=== PATIENT | female | born 1960 | race Caucasian/White ===

== ENCOUNTER 2017-07-02 15:15 | Inpatient (IN) | payer MEDICARE, OTHER ==
[2017-07-02] MEDS: ONDANSETRON 4 MG INJ IV (16:19)
[2017-07-02] MEDS: HYDROmorphONE 1 MG/ML SYG IV ×3 (16:19→20:00)
[2017-07-02 16:36] LABS: ADD UMIC NO; UR ASCORBIC ACID NEGATIVE (NEGATIVE); UR BILIRUBIN (Dip) NEGATIVE (NEGATIVE); UR BLOOD (Dip) NEGATIVE (NEGATIVE); UR CLARITY CLEAR (CLEAR); UR COLOR YELLOW (YELLOW); UR GLUCOSE (Dip) NEGATIVE (NEGATIVE); UR KETONES (Dip) NEGATIVE (NEGATIVE); UR LEUKOCYTE ESTERASE (Dip) NEGATIVE Leu/ul (NEGATIVE); UR NITRITE (Dip) NEGATIVE (NEGATIVE); UR SPECIFIC GRAVITY (Dip) 1.018 (1.003-1.030); UR TOTAL PROTEIN (Dip) NEGATIVE (NEGATIVE); UR UROBILINOGEN (Dip) 1+ mg/dL (NEGATIVE)
[2017-07-02 16:40] LABS: ADD MAN DIFF? NO
[2017-07-02 16:42] LABS: BASOPHILS % 0.8 % (0.0-2.0); EOSINOPHILS % 0.8 % (0.0-7.0); HEMATOCRIT 28.7 % (37.0-47.0); HEMOGLOBIN 9.2 g/dl (12.0-16.0); LYMPHOCYTES # 0.7 10^3/ul (0.8-2.9); MEAN CORPUSCULAR HEMOGLOBIN 25.8 pg (29.0-33.0); MEAN CORPUSCULAR HGB CONC 32.1 g/dl (32.0-37.0); MEAN CORPUSCULAR VOLUME 80.4 fl (82.0-101.0); MEAN PLATELET VOLUME 9.9 fl (7.4-10.4); MONOCYTE # 0.5 10^3/ul (0.3-0.9); MONOCYTES % 10.1 % (0.0-11.0); NEUTROPHIL # 3.8 10^3/ul (1.6-7.5); NEUTROPHILS % 74.3 % (39.0-77.0); PLATELET COUNT 272 10^3/UL (140-415); RED BLOOD COUNT 3.57 10^6/ul (4.20-5.40); RED CELL DISTRIBUTION WIDTH 14.5 % (11.5-14.5)
[2017-07-02 16:42] LABS: WHITE BLOOD COUNT 5.1 10^3/ul (4.8-10.8)
[2017-07-02 17:26] LABS: ALANINE AMINOTRANSFERASE 40 IU/L (13-69); ALBUMIN 3.6 g/dl (3.3-4.9); ALBUMIN/GLOBULIN RATIO 1.09; ALKALINE PHOSPHATASE 95 IU/L (42-121); ANION GAP 17 (8-16); ASPARTATE AMINO TRANSFERASE 73 IU/L (15-46); BILIRUBIN,INDIRECT 0.2 mg/dl (0-1.1); BILIRUBIN,TOTAL 0.2 mg/dl (0.2-1.3); BLOOD UREA NITROGEN 10 mg/dl (7-20); CALCIUM 9.2 mg/dl (8.4-10.2); CARBON DIOXIDE 26 mmol/L (21-31); CHLORIDE 98 mmol/L (97-110); CREATININE 0.75 mg/dl (0.44-1.00); GLUCOSE 92 mg/dl (70-220); LIPASE 131 U/L (23-300); POTASSIUM 3.6 mmol/L (3.5-5.1); SODIUM 137 mmol/L (135-144); TOTAL PROTEIN 6.9 g/dl (6.1-8.1)
[2017-07-02] MEDS ORDERED: ONDANSETRON 4 MG INJ IV (19:00)
[2017-07-02] MEDS ORDERED: ACETAMINOPHEN 325 MG TAB PO ×2 (19:00→20:30)
[2017-07-02] MEDS: ACETAMINOPHEN 325 MG TAB PO (20:00)
[2017-07-02] MEDS ORDERED: HYDROCODONE/APAP (5/325) TAB PO (20:30)
[2017-07-02] MEDS ORDERED: NACL 0.9% 3 ML SYG IV (20:30)
[2017-07-02] MEDS: ENOXAPARIN 30 MG/0.3 ML SYG SC (20:36)
[2017-07-03] MEDS: ALTEPLASE (CATHFLO) 2 MG INJ CATHETER ×2 (02:06→04:00)
[2017-07-03 06:34] LABS: ADD MAN DIFF? NO
[2017-07-03 06:43] LABS: WHITE BLOOD COUNT 3.6 10^3/ul (4.8-10.8)
[2017-07-03 06:43] LABS: ABNORMAL IP MESSAGE 1; BASOPHIL # 0.1 10^3/ul (0.0-0.1); BASOPHILS % 1.4 % (0.0-2.0); EOSINOPHILS # 0.1 10^3/ul (0.0-0.5); EOSINOPHILS % 1.6 % (0.0-7.0); HEMATOCRIT 26.7 % (37.0-47.0); HEMOGLOBIN 8.6 g/dl (12.0-16.0); LYMPHOCYTES # 0.5 10^3/ul (0.8-2.9); LYMPHOCYTES % 12.9 % (15.0-51.0); MEAN CORPUSCULAR HEMOGLOBIN 26.1 pg (29.0-33.0); MEAN CORPUSCULAR HGB CONC 32.2 g/dl (32.0-37.0); MEAN CORPUSCULAR VOLUME 81.2 fl (82.0-101.0); MEAN PLATELET VOLUME 10.1 fl (7.4-10.4); MONOCYTE # 0.4 10^3/ul (0.3-0.9); MONOCYTES % 11.8 % (0.0-11.0); NEUTROPHIL # 2.6 10^3/ul (1.6-7.5); NEUTROPHILS % 71.8 % (39.0-77.0); PLATELET COUNT 241 10^3/UL (140-415); RED BLOOD COUNT 3.29 10^6/ul (4.20-5.40); RED CELL DISTRIBUTION WIDTH 14.8 % (11.5-14.5)
[2017-07-03 06:50] LABS: POSITIVE DIFF @See below
[2017-07-03] MEDS: HYDROmorphONE 1 MG/ML SYG IV ×3 (06:59→22:05)
[2017-07-03] MEDS: SOD CHLORIDE 0.9% 1,000 ML IV (06:59)
[2017-07-03 07:15] LABS: ALANINE AMINOTRANSFERASE 29 IU/L (13-69); ALBUMIN 3.2 g/dl (3.3-4.9); ALBUMIN/GLOBULIN RATIO 0.96; ALKALINE PHOSPHATASE 78 IU/L (42-121); ANION GAP 10 (8-16); ASPARTATE AMINO TRANSFERASE 58 IU/L (15-46); BILIRUBIN,INDIRECT 0.1 mg/dl (0-1.1); BILIRUBIN,TOTAL 0.1 mg/dl (0.2-1.3); BLOOD UREA NITROGEN 10 mg/dl (7-20); CALCIUM 9.2 mg/dl (8.4-10.2); CARBON DIOXIDE 31 mmol/L (21-31); CHLORIDE 101 mmol/L (97-110); CHOL/HDL RATIO 9.1 RATIO; CHOLESTEROL 202 mg/dl (100-200); CREATININE 0.78 mg/dl (0.44-1.00); GLUCOSE 98 mg/dl (70-220); HDL CHOLESTEROL 22 mg/dl (37-92); LDL CHOLESTEROL,CALCULATED 132 mg/dl; MAGNESIUM 1.9 mg/dl (1.7-2.5); POTASSIUM 3.6 mmol/L (3.5-5.1); SODIUM 138 mmol/L (135-144); TOTAL PROTEIN 6.5 g/dl (6.1-8.1); TRIGLYCERIDES 238 mg/dl (0-149)
[2017-07-03] MEDS: ENOXAPARIN 30 MG/0.3 ML SYG SC (09:19)
[2017-07-03] MEDS: ONDANSETRON 4 MG INJ IV (17:24)
[2017-07-04] MEDS: HYDROmorphONE 1 MG/ML SYG IV ×11 (02:05→19:07)
[2017-07-04] MEDS: ONDANSETRON 4 MG INJ IV ×2 (08:05→19:08)
[2017-07-04] MEDS: ENOXAPARIN 30 MG/0.3 ML SYG SC (10:10)
[2017-07-04] MEDS: FENTAnyl PATCH 50 MCG/HR TRANSDERM (12:00)
[2017-07-04] MEDS ORDERED: HYDROmorphONE 1 MG/ML SYG IV (12:32)
[2017-07-04] MEDS ORDERED: NALOXONE (0.4 MG/ML) INJ IV (16:30)
[2017-07-04] MEDS: SOD CHLORIDE 0.9% 1,000 ML IV ×2 (16:58→22:30)
[2017-07-04] MEDS: DULOXETINE 30 MG CAP DR PO (21:26)
[2017-07-05] MEDS: SOD CHLORIDE 0.9% 1,000 ML IV ×3 (06:30→21:20)
[2017-07-05] MEDS: ENOXAPARIN 30 MG/0.3 ML SYG SC (09:00)
[2017-07-05] MEDS: HYDROmorphONE 2 MG/ML SYG IV (11:01)
[2017-07-05] MEDS: ONDANSETRON 4 MG INJ IV (11:01)
[2017-07-05 11:22] LABS: INR 1.18; PROTIME 15.2 Sec (11.9-14.9); PT RATIO 1.2
[2017-07-05 11:23] LABS: PARTIAL THROMBOPLASTIN TIME 37.5 Sec (25.0-35.0)
[2017-07-05] MEDS: DULOXETINE 30 MG CAP DR PO (21:00)
[2017-07-06] MEDS: HYDROmorphONE 2 MG/ML SYG IV ×3 (00:05→18:44)
[2017-07-06] MEDS: ONDANSETRON 4 MG INJ IV ×3 (00:05→18:52)
[2017-07-06] MEDS: SOD CHLORIDE 0.9% 1,000 ML IV ×2 (05:52→14:30)
[2017-07-06] MEDS: ENOXAPARIN 30 MG/0.3 ML SYG SC (09:00)
[2017-07-06] MEDS: DULOXETINE 30 MG CAP DR PO (21:44)
[2017-07-07] MEDS: SOD CHLORIDE 0.9% 1,000 ML IV ×4 (00:25→21:46)
[2017-07-07] MEDS: ONDANSETRON 4 MG INJ IV ×2 (01:03→13:46)
[2017-07-07] MEDS: ENOXAPARIN 30 MG/0.3 ML SYG SC (09:00)
[2017-07-07] MEDS: IOHEXOL 300MG/ML 30 ML BTL (11:45)
[2017-07-07] MEDS: ALTEPLASE (CATHFLO) 2 MG INJ CATHETER ×2 (12:25→16:18)
[2017-07-07] MEDS: HYDROmorphONE 2 MG/ML SYG IV (13:37)
[2017-07-07] MEDS ORDERED: ONDANSETRON 4 MG INJ IV (20:30)
[2017-07-07] MEDS: DULOXETINE 30 MG CAP DR PO ×2 (20:59→21:00)
[2017-07-08 06:35] LABS: ADD MAN DIFF? NO
[2017-07-08] MEDS: SOD CHLORIDE 0.9% 1,000 ML IV ×2 (06:36→14:30)
[2017-07-08 06:42] LABS: WHITE BLOOD COUNT 3.9 10^3/ul (4.8-10.8)
[2017-07-08 06:43] LABS: ABNORMAL IP MESSAGE 1; BASOPHILS % 0.8 % (0.0-2.0); EOSINOPHILS # 0.1 10^3/ul (0.0-0.5); EOSINOPHILS % 1.8 % (0.0-7.0); HEMATOCRIT 26.3 % (37.0-47.0); HEMOGLOBIN 8.3 g/dl (12.0-16.0); LYMPHOCYTES # 0.5 10^3/ul (0.8-2.9); LYMPHOCYTES % 11.9 % (15.0-51.0); MEAN CORPUSCULAR HEMOGLOBIN 25.8 pg (29.0-33.0); MEAN CORPUSCULAR HGB CONC 31.6 g/dl (32.0-37.0); MEAN CORPUSCULAR VOLUME 81.7 fl (82.0-101.0); MEAN PLATELET VOLUME 10.1 fl (7.4-10.4); MONOCYTE # 0.4 10^3/ul (0.3-0.9); MONOCYTES % 9.8 % (0.0-11.0); NEUTROPHIL # 2.9 10^3/ul (1.6-7.5); NEUTROPHILS % 74.4 % (39.0-77.0); PLATELET COUNT 261 10^3/UL (140-415); RED BLOOD COUNT 3.22 10^6/ul (4.20-5.40); RED CELL DISTRIBUTION WIDTH 15.1 % (11.5-14.5)
[2017-07-08 06:47] LABS: POSITIVE DIFF @See below
[2017-07-08 07:08] LABS: ANION GAP 13 (8-16); BLOOD UREA NITROGEN 4 mg/dl (7-20); CALCIUM 8.4 mg/dl (8.4-10.2); CARBON DIOXIDE 28 mmol/L (21-31); CHLORIDE 101 mmol/L (97-110); CREATININE 0.54 mg/dl (0.44-1.00); GLUCOSE 93 mg/dl (70-220); SODIUM 139 mmol/L (135-144)
[2017-07-08] MEDS: ENOXAPARIN 30 MG/0.3 ML SYG SC (11:32)
[2017-07-08] MEDS: HYDROmorphONE 1 MG/ML SYG IV ×2 (11:33→21:20)
[2017-07-08] MEDS: ONDANSETRON 4 MG INJ IV (11:35)
[2017-07-08] MEDS: POTASSIUM CHLORIDE (SR) 20 MEQ TAB PO (16:44)
[2017-07-08] MEDS: DULOXETINE 30 MG CAP DR PO (21:15)
[2017-07-09] MEDS: SOD CHLORIDE 0.9% 1,000 ML IV ×4 (01:58→22:30)
[2017-07-09] MEDS: ONDANSETRON 4 MG INJ IV ×3 (02:05→22:20)
[2017-07-09 06:15] LABS: ADD MAN DIFF? NO
[2017-07-09 06:21] LABS: ABNORMAL IP MESSAGE 1; BASOPHILS % 0.9 % (0.0-2.0); EOSINOPHILS # 0.1 10^3/ul (0.0-0.5); EOSINOPHILS % 2.6 % (0.0-7.0); HEMATOCRIT 26.7 % (37.0-47.0); HEMOGLOBIN 8.4 g/dl (12.0-16.0); LYMPHOCYTES # 0.4 10^3/ul (0.8-2.9); LYMPHOCYTES % 11.8 % (15.0-51.0); MEAN CORPUSCULAR HEMOGLOBIN 25.9 pg (29.0-33.0); MEAN CORPUSCULAR HGB CONC 31.5 g/dl (32.0-37.0); MEAN CORPUSCULAR VOLUME 82.4 fl (82.0-101.0); MEAN PLATELET VOLUME 9.7 fl (7.4-10.4); MONOCYTE # 0.5 10^3/ul (0.3-0.9); NEUTROPHIL # 2.4 10^3/ul (1.6-7.5); NEUTROPHILS % 69.7 % (39.0-77.0); PLATELET COUNT 262 10^3/UL (140-415); RED BLOOD COUNT 3.24 10^6/ul (4.20-5.40); RED CELL DISTRIBUTION WIDTH 14.9 % (11.5-14.5)
[2017-07-09 06:21] LABS: WHITE BLOOD COUNT 3.5 10^3/ul (4.8-10.8)
[2017-07-09 06:34] LABS: POSITIVE DIFF @See below
[2017-07-09 06:46] LABS: ANION GAP 9 (8-16); BLOOD UREA NITROGEN 2 mg/dl (7-20); CALCIUM 8.5 mg/dl (8.4-10.2); CARBON DIOXIDE 29 mmol/L (21-31); CHLORIDE 106 mmol/L (97-110); CREATININE 0.52 mg/dl (0.44-1.00); GLUCOSE 100 mg/dl (70-220); POTASSIUM 3.1 mmol/L (3.5-5.1); SODIUM 141 mmol/L (135-144)
[2017-07-09] MEDS ORDERED: NALOXONE (0.4 MG/ML) INJ IV (09:00)
[2017-07-09] MEDS ORDERED: HYDROmorphONE 0.2 MG/ML PCA IV (09:00)
[2017-07-09] MEDS: METHYLPREDNISOLONE 125 MG INJ IV ×2 (09:29→21:43)
[2017-07-09] MEDS: ENOXAPARIN 30 MG/0.3 ML SYG SC (09:31)
[2017-07-09] MEDS ORDERED: BARIUM SULFATE 135 ML (E-Z HD) PO (09:38)
[2017-07-09] MEDS ORDERED: DEXTROSE 5%-0.45% NACL 1,000 ML IV (10:00)
[2017-07-09] MEDS: POTASSIUM CHLORIDE 50 ML IVPB ×2 (12:54→15:48)
[2017-07-09] MEDS: HYDROmorphONE 1 MG/ML SYG IV ×2 (13:40→22:21)
[2017-07-09] MEDS: DULOXETINE 30 MG CAP DR PO (21:43)
[2017-07-10] MEDS: SOD CHLORIDE 0.9% 1,000 ML IV ×3 (04:48→23:08)
[2017-07-10] MEDS: HYDROmorphONE 1 MG/ML SYG IV ×3 (05:35→15:45)
[2017-07-10] MEDS: ONDANSETRON 4 MG INJ IV ×3 (05:35→15:45)
[2017-07-10 06:06] LABS: ADD MAN DIFF? NO
[2017-07-10 06:15] LABS: ABNORMAL IP MESSAGE 1; BASOPHILS % 0.2 % (0.0-2.0); EOSINOPHILS % 0.2 % (0.0-7.0); HEMATOCRIT 29.2 % (37.0-47.0); HEMOGLOBIN 9.1 g/dl (12.0-16.0); LYMPHOCYTES # 0.5 10^3/ul (0.8-2.9); LYMPHOCYTES % 9.8 % (15.0-51.0); MEAN CORPUSCULAR HEMOGLOBIN 25.5 pg (29.0-33.0); MEAN CORPUSCULAR HGB CONC 31.2 g/dl (32.0-37.0); MEAN CORPUSCULAR VOLUME 81.8 fl (82.0-101.0); MEAN PLATELET VOLUME 10.2 fl (7.4-10.4); MONOCYTE # 0.3 10^3/ul (0.3-0.9); MONOCYTES % 5.9 % (0.0-11.0); NEUTROPHIL # 3.7 10^3/ul (1.6-7.5); NEUTROPHILS % 80.4 % (39.0-77.0); PLATELET COUNT 309 10^3/UL (140-415); RED BLOOD COUNT 3.57 10^6/ul (4.20-5.40); RED CELL DISTRIBUTION WIDTH 15.4 % (11.5-14.5)
[2017-07-10 06:15] LABS: WHITE BLOOD COUNT 4.6 10^3/ul (4.8-10.8)
[2017-07-10 06:30] LABS: POSITIVE DIFF @See below
[2017-07-10 06:44] LABS: ANION GAP 15 (8-16); BLOOD UREA NITROGEN 9 mg/dl (7-20); CALCIUM 8.8 mg/dl (8.4-10.2); CARBON DIOXIDE 29 mmol/L (21-31); CHLORIDE 103 mmol/L (97-110); CREATININE 0.59 mg/dl (0.44-1.00); GLUCOSE 135 mg/dl (70-220); POTASSIUM 3.9 mmol/L (3.5-5.1); SODIUM 143 mmol/L (135-144)
[2017-07-10] MEDS: ENOXAPARIN 30 MG/0.3 ML SYG SC (08:32)
[2017-07-10] MEDS: METHYLPREDNISOLONE 125 MG INJ IV ×2 (08:35→21:00)
[2017-07-10] MEDS: HEPARIN 5,000 UNIT/0.5 ML VIAL SC ×2 (14:55→23:13)
[2017-07-10] MEDS: DULOXETINE 30 MG CAP DR PO (21:00)
[2017-07-11] MEDS: ONDANSETRON 4 MG INJ IV ×4 (03:10→15:21)
[2017-07-11] MEDS: HYDROmorphONE 1 MG/ML SYG IV ×4 (03:10→16:10)
[2017-07-11 06:23] LABS: ADD MAN DIFF? NO
[2017-07-11] MEDS: SOD CHLORIDE 0.9% 1,000 ML IV ×3 (06:30→15:53)
[2017-07-11 06:33] LABS: ABNORMAL IP MESSAGE 1; BASOPHILS % 0.6 % (0.0-2.0); EOSINOPHILS % 0.8 % (0.0-7.0); HEMATOCRIT 28.3 % (37.0-47.0); HEMOGLOBIN 8.7 g/dl (12.0-16.0); LYMPHOCYTES # 0.6 10^3/ul (0.8-2.9); LYMPHOCYTES % 11.1 % (15.0-51.0); MEAN CORPUSCULAR HEMOGLOBIN 25.4 pg (29.0-33.0); MEAN CORPUSCULAR HGB CONC 30.7 g/dl (32.0-37.0); MEAN CORPUSCULAR VOLUME 82.5 fl (82.0-101.0); MEAN PLATELET VOLUME 10.2 fl (7.4-10.4); MONOCYTE # 0.4 10^3/ul (0.3-0.9); NEUTROPHILS % 77.2 % (39.0-77.0); PLATELET COUNT 323 10^3/UL (140-415); RED BLOOD COUNT 3.43 10^6/ul (4.20-5.40); RED CELL DISTRIBUTION WIDTH 15.7 % (11.5-14.5)
[2017-07-11 06:33] LABS: WHITE BLOOD COUNT 5.1 10^3/ul (4.8-10.8)
[2017-07-11 06:51] LABS: ANION GAP 10 (8-16); BLOOD UREA NITROGEN 11 mg/dl (7-20); CALCIUM 8.9 mg/dl (8.4-10.2); CARBON DIOXIDE 30 mmol/L (21-31); CHLORIDE 104 mmol/L (97-110); CREATININE 0.66 mg/dl (0.44-1.00); GLUCOSE 96 mg/dl (70-220); POTASSIUM 3.2 mmol/L (3.5-5.1); SODIUM 141 mmol/L (135-144)
[2017-07-11 06:56] LABS: POSITIVE DIFF @See below
[2017-07-11] MEDS: METHYLPREDNISOLONE 125 MG INJ IV ×2 (10:02→20:11)
[2017-07-11] MEDS: HEPARIN 5,000 UNIT/0.5 ML VIAL SC ×2 (10:03→20:16)
[2017-07-11] MEDS: POTASSIUM CHLORIDE 50 ML IVPB ×3 (15:22→20:10)
[2017-07-11] MEDS: DEXTROSE 5%-0.45% NACL 1,000 ML IV ×2 (16:06→23:58)
[2017-07-11] MEDS: HYDROmorphONE 0.2 MG/ML PCA IV (17:00)
[2017-07-11] MEDS: DULOXETINE 30 MG CAP DR PO (20:11)
[2017-07-12] MEDS: DEXTROSE 5%-0.45% NACL 1,000 ML IV ×3 (01:14→17:48)
[2017-07-12 05:17] LABS: ADD MAN DIFF? NO
[2017-07-12 05:26] LABS: WHITE BLOOD COUNT 5.1 10^3/ul (4.8-10.8)
[2017-07-12 05:26] LABS: ABNORMAL IP MESSAGE 1; BASOPHILS % 0.2 % (0.0-2.0); EOSINOPHILS % 0.2 % (0.0-7.0); HEMATOCRIT 30.9 % (37.0-47.0); HEMOGLOBIN 9.5 g/dl (12.0-16.0); LYMPHOCYTES # 0.4 10^3/ul (0.8-2.9); LYMPHOCYTES % 8.3 % (15.0-51.0); MEAN CORPUSCULAR HEMOGLOBIN 25.5 pg (29.0-33.0); MEAN CORPUSCULAR HGB CONC 30.7 g/dl (32.0-37.0); MEAN CORPUSCULAR VOLUME 82.8 fl (82.0-101.0); MEAN PLATELET VOLUME 10.1 fl (7.4-10.4); MONOCYTE # 0.2 10^3/ul (0.3-0.9); MONOCYTES % 4.3 % (0.0-11.0); NEUTROPHIL # 4.3 10^3/ul (1.6-7.5); NEUTROPHILS % 84.6 % (39.0-77.0); PLATELET COUNT 294 10^3/UL (140-415); RED BLOOD COUNT 3.73 10^6/ul (4.20-5.40); RED CELL DISTRIBUTION WIDTH 15.3 % (11.5-14.5)
[2017-07-12 05:40] LABS: POSITIVE DIFF @See below
[2017-07-12] MEDS: ONDANSETRON 4 MG INJ IV ×3 (05:55→17:51)
[2017-07-12 05:59] LABS: ANION GAP 11 (8-16); BLOOD UREA NITROGEN 6 mg/dl (7-20); CALCIUM 8.7 mg/dl (8.4-10.2); CARBON DIOXIDE 32 mmol/L (21-31); CHLORIDE 100 mmol/L (97-110); CREATININE 0.61 mg/dl (0.44-1.00); GLUCOSE 178 mg/dl (70-220); POTASSIUM 3.9 mmol/L (3.5-5.1); SODIUM 139 mmol/L (135-144)
[2017-07-12] MEDS: METHYLPREDNISOLONE 125 MG INJ IV ×2 (08:50→21:03)
[2017-07-12] MEDS: HEPARIN 5,000 UNIT/0.5 ML VIAL SC ×2 (08:51→21:04)
[2017-07-12] MEDS: HYDROmorphONE 0.2 MG/ML PCA IV (10:01)
[2017-07-12] MEDS: HYDROmorphONE 1 MG/ML SYG IV ×3 (10:55→17:59)
[2017-07-12] MEDS: TRIMETHOBENZAMIDE 100 MG/ML VIAL IM (14:40)
[2017-07-12] MEDS: MINERAL OIL 30ML CUP PO (17:45)
[2017-07-12] MEDS: DULOXETINE 30 MG CAP DR PO (21:00)
[2017-07-13] MEDS: MINERAL OIL 30ML CUP PO ×5 (00:16→23:32)
[2017-07-13] MEDS: ONDANSETRON 4 MG INJ IV ×5 (00:19→23:05)
[2017-07-13] MEDS: HYDROmorphONE 0.2 MG/ML PCA IV ×2 (02:59→21:37)
[2017-07-13] MEDS: DEXTROSE 5%-0.45% NACL 1,000 ML IV ×2 (05:33→15:53)
[2017-07-13 06:48] LABS: INR 1.35; PROTIME 16.9 Sec (11.9-14.9); PT RATIO 1.3
[2017-07-13 06:49] LABS: PARTIAL THROMBOPLASTIN TIME 26.9 Sec (25.0-35.0)
[2017-07-13] MEDS: HEPARIN 5,000 UNIT/0.5 ML VIAL SC ×2 (08:32→21:47)
[2017-07-13] MEDS: METHYLPREDNISOLONE 125 MG INJ IV ×2 (08:32→21:46)
[2017-07-13] MEDS ORDERED: LIDOCAINE 1% (MDV) 20 ML INJ (13:45)
[2017-07-13] MEDS ORDERED: PROPOFOL 40 ML (14:01)
[2017-07-13] MEDS ORDERED: LIDOCAINE 2% (SDV) 5 ML INJ (14:01)
[2017-07-13] MEDS ORDERED: FENTAnyl 50 MCG/ML VIAL (14:02)
[2017-07-13] MEDS ORDERED: MIDAZOLAM 1 MG/ML 2 ML INJ (14:02)
[2017-07-13] MEDS: HYDROmorphONE 1 MG/ML SYG IV (16:57)
[2017-07-13] MEDS: DULOXETINE 30 MG CAP DR PO (21:00)
[2017-07-13] MEDS: MINERAL OIL 133 ML ENEMA PR (21:41)
[2017-07-13] MEDS: LORAZEPAM 0.5 MG TAB SL (21:45)
[2017-07-14] MEDS: DEXTROSE 5%-0.45% NACL 1,000 ML IV ×2 (05:09→10:28)
[2017-07-14] MEDS: LACTULOSE 30ML CUP PO (05:33)
[2017-07-14 06:18] LABS: ANION GAP 7 (8-16); BLOOD UREA NITROGEN 7 mg/dl (7-20); CALCIUM 8.8 mg/dl (8.4-10.2); CARBON DIOXIDE 37 mmol/L (21-31); CHLORIDE 96 mmol/L (97-110); CREATININE 0.63 mg/dl (0.44-1.00); GLUCOSE 147 mg/dl (70-220); MAGNESIUM 1.6 mg/dl (1.7-2.5); PHOSPHORUS 4.1 mg/dl (2.5-4.9); POTASSIUM 3.4 mmol/L (3.5-5.1); SODIUM 137 mmol/L (135-144)
[2017-07-14] MEDS: MINERAL OIL 30ML CUP PO ×3 (06:32→17:24)
[2017-07-14] MEDS: METHYLPREDNISOLONE 125 MG INJ IV ×2 (10:22→20:14)
[2017-07-14] MEDS: HEPARIN 5,000 UNIT/0.5 ML VIAL SC ×2 (10:23→20:15)
[2017-07-14] MEDS: ONDANSETRON 4 MG INJ IV ×2 (10:29→20:07)
[2017-07-14] MEDS: HYDROmorphONE 0.2 MG/ML PCA IV (12:25)
[2017-07-14] MEDS: DULOXETINE 30 MG CAP DR PO (20:22)
[2017-07-14] MEDS ORDERED: hydrALAzine 20 MG INJ (21:53)
[2017-07-14] MEDS: hydrALAzine 20 MG INJ IV (21:57)
[2017-07-14] MEDS ORDERED: POTASSIUM CHLORIDE 40 MEQ in DEXTROSE 5% 250 ML IV (22:00)
[2017-07-14] MEDS ORDERED: POTASSIUM CHLORIDE 50 ML IVPB (22:00)
[2017-07-15] MEDS: MAGNESIUM SULFATE 2 GM/50 ML 50 ML IVPB (00:05)
[2017-07-15] MEDS: MINERAL OIL 30ML CUP PO ×5 (00:21→23:56)
[2017-07-15] MEDS: ONDANSETRON 4 MG INJ IV ×2 (00:27→09:11)
[2017-07-15] MEDS: HYDROmorphONE 0.2 MG/ML PCA IV (02:35)
[2017-07-15] MEDS: POTASSIUM CHLORIDE 40 MEQ in SOD CHLORIDE 0.9% 250 ML IV (02:44)
[2017-07-15] MEDS: DEXTROSE 5%-0.45% NACL 1,000 ML IV ×2 (06:07→22:50)
[2017-07-15] MEDS: METHYLPREDNISOLONE 125 MG INJ IV ×2 (09:09→20:41)
[2017-07-15] MEDS: HEPARIN 5,000 UNIT/0.5 ML VIAL SC ×2 (09:09→20:41)
[2017-07-15] MEDS: ONDANSETRON INJ 8 MG in DEXTROSE 5% 50 ML IV (12:05)
[2017-07-15] MEDS ORDERED: POTASSIUM CHLORIDE (SR) 20 MEQ TAB PO (13:35)
[2017-07-15] MEDS ORDERED: MAGNESIUM SULFATE 2 GM/50 ML 50 ML IVPB (15:00)
[2017-07-15] MEDS: DULOXETINE 30 MG CAP DR PO (20:40)
[2017-07-16] MEDS: HYDROmorphONE 1 MG/ML SYG IV (00:07)
[2017-07-16] MEDS: ONDANSETRON 4 MG INJ IV (00:07)
[2017-07-16] MEDS: hydrALAzine 20 MG INJ IV (04:00)
[2017-07-16] MEDS: MINERAL OIL 30ML CUP PO ×3 (05:28→17:24)
[2017-07-16] MEDS: METOCLOPRAMIDE 10 MG INJ IV (05:33)
[2017-07-16 06:39] LABS: ANION GAP 8 (8-16); BLOOD UREA NITROGEN 11 mg/dl (7-20); CARBON DIOXIDE 37 mmol/L (21-31); CHLORIDE 95 mmol/L (97-110); CREATININE 0.61 mg/dl (0.44-1.00); GLUCOSE 146 mg/dl (70-220); MAGNESIUM 1.9 mg/dl (1.7-2.5); PHOSPHORUS 3.3 mg/dl (2.5-4.9); POTASSIUM 3.6 mmol/L (3.5-5.1); SODIUM 136 mmol/L (135-144)
[2017-07-16] MEDS: METHYLPREDNISOLONE 125 MG INJ IV ×2 (08:18→20:45)
[2017-07-16] MEDS: HEPARIN 5,000 UNIT/0.5 ML VIAL SC ×2 (08:19→20:46)
[2017-07-16] MEDS: DEXTROSE 5%-0.45% NACL 1,000 ML IV (17:25)
[2017-07-16] MEDS: HYDROmorphONE 0.2 MG/ML PCA IV (20:36)
[2017-07-16] MEDS: DULOXETINE 30 MG CAP DR PO (20:45)
[2017-07-17] MEDS: MINERAL OIL 30ML CUP PO ×4 (01:02→17:27)
[2017-07-17] MEDS: hydrALAzine 20 MG INJ IV (02:40)
[2017-07-17] MEDS: DEXTROSE 5%-0.45% NACL 1,000 ML IV ×2 (04:30→17:30)
[2017-07-17] MEDS: ONDANSETRON 4 MG INJ IV ×3 (05:58→15:34)
[2017-07-17] MEDS: HEPARIN 5,000 UNIT/0.5 ML VIAL SC ×2 (08:27→20:52)
[2017-07-17] MEDS: METHYLPREDNISOLONE 125 MG INJ IV ×2 (08:28→20:52)
[2017-07-17] MEDS: HYDROmorphONE 1 MG/ML SYG IV ×3 (08:50→15:34)
[2017-07-17] MEDS: FAMOTIDINE 20 MG TAB PO (14:30)
[2017-07-17] MEDS: DULOXETINE 30 MG CAP DR PO (20:53)
[2017-07-17] MEDS: ONDANSETRON INJ 8 MG in DEXTROSE 5% 50 ML IV (21:04)
[2017-07-18] MEDS: MINERAL OIL 30ML CUP PO
[2017-07-18] MEDS: HYDROmorphONE 0.2 MG/ML PCA IV ×2 (02:47→11:20)
[2017-07-18] MEDS: ONDANSETRON INJ 8 MG in DEXTROSE 5% 50 ML IV ×4 (03:30→21:55)
[2017-07-18 05:40] LABS: ADD MAN DIFF? NO
[2017-07-18 05:42] LABS: ABNORMAL IP MESSAGE 1; HEMOGLOBIN 9.6 g/dl (12.0-16.0); LYMPHOCYTES # 0.3 10^3/ul (0.8-2.9); LYMPHOCYTES % 4.5 % (15.0-51.0); MEAN CORPUSCULAR HEMOGLOBIN 25.1 pg (29.0-33.0); MEAN CORPUSCULAR VOLUME 80.9 fl (82.0-101.0); MEAN PLATELET VOLUME 10.7 fl (7.4-10.4); MONOCYTE # 0.3 10^3/ul (0.3-0.9); MONOCYTES % 4.5 % (0.0-11.0); NEUTROPHIL # 5.3 10^3/ul (1.6-7.5); NEUTROPHILS % 89.3 % (39.0-77.0); PLATELET COUNT 251 10^3/UL (140-415); RED BLOOD COUNT 3.83 10^6/ul (4.20-5.40); RED CELL DISTRIBUTION WIDTH 16.4 % (11.5-14.5)
[2017-07-18 05:46] LABS: POSITIVE DIFF @See below
[2017-07-18 05:56] LABS: ALANINE AMINOTRANSFERASE 31 IU/L (13-69); ALBUMIN 2.9 g/dl (3.3-4.9); ALBUMIN/GLOBULIN RATIO 0.96; ALKALINE PHOSPHATASE 115 IU/L (42-121); ANION GAP 9 (8-16); ASPARTATE AMINO TRANSFERASE 56 IU/L (15-46); BILIRUBIN,INDIRECT 0.2 mg/dl (0-1.1); BILIRUBIN,TOTAL 0.2 mg/dl (0.2-1.3); BLOOD UREA NITROGEN 11 mg/dl (7-20); CALCIUM 8.8 mg/dl (8.4-10.2); CARBON DIOXIDE 34 mmol/L (21-31); CHLORIDE 95 mmol/L (97-110); CREATININE 0.64 mg/dl (0.44-1.00); GLUCOSE 141 mg/dl (70-220); MAGNESIUM 1.7 mg/dl (1.7-2.5); PHOSPHORUS 4.8 mg/dl (2.5-4.9); SODIUM 134 mmol/L (135-144); TOTAL PROTEIN 5.9 g/dl (6.1-8.1)
[2017-07-18] MEDS: LACTOBACILLUS RHAMNOSUS CAP PO ×3 (08:31→21:45)
[2017-07-18] MEDS: HEPARIN 5,000 UNIT/0.5 ML VIAL SC ×2 (08:31→21:46)
[2017-07-18] MEDS: METHYLPREDNISOLONE 125 MG INJ IV ×2 (08:31→21:45)
[2017-07-18] MEDS: FAMOTIDINE 20 MG TAB PO (08:34)
[2017-07-18] MEDS: METOCLOPRAMIDE 10 MG INJ IV (11:20)
[2017-07-18] MEDS: DEXTROSE 5%-0.45% NACL 1,000 ML IV (16:45)
[2017-07-18] MEDS: DULOXETINE 30 MG CAP DR PO (21:45)
[2017-07-19] MEDS: HYDROmorphONE 0.2 MG/ML PCA IV ×2 (06:34→17:20)
[2017-07-19] MEDS: ONDANSETRON INJ 8 MG in DEXTROSE 5% 50 ML IV ×4 (09:00→21:59)
[2017-07-19] MEDS: FAMOTIDINE 20 MG TAB PO ×2 (09:00→09:01)
[2017-07-19] MEDS: LACTOBACILLUS RHAMNOSUS CAP PO ×3 (09:00→21:00)
[2017-07-19] MEDS: METHYLPREDNISOLONE 125 MG INJ IV ×2 (09:01→21:59)
[2017-07-19] MEDS: HEPARIN 5,000 UNIT/0.5 ML VIAL SC ×2 (09:02→22:03)
[2017-07-19] MEDS: DEXTROSE 5%-0.45% NACL 1,000 ML IV (13:00)
[2017-07-19] MEDS: DULOXETINE 30 MG CAP DR PO (21:00)
[2017-07-20] MEDS: HYDROmorphONE 0.2 MG/ML PCA IV ×2 (05:57→16:32)
[2017-07-20] MEDS: ONDANSETRON INJ 8 MG in DEXTROSE 5% 50 ML IV ×3 (08:38→19:53)
[2017-07-20] MEDS: FAMOTIDINE 20 MG TAB PO (08:40)
[2017-07-20] MEDS: HEPARIN 5,000 UNIT/0.5 ML VIAL SC ×2 (08:40→20:54)
[2017-07-20] MEDS: METHYLPREDNISOLONE 125 MG INJ IV ×2 (08:40→20:53)
[2017-07-20] MEDS: LACTOBACILLUS RHAMNOSUS CAP PO ×3 (08:41→21:00)
[2017-07-20] MEDS: DEXTROSE 5%-0.45% NACL 1,000 ML IV (10:34)
[2017-07-20] MEDS: METOCLOPRAMIDE 10 MG INJ IV (16:27)
[2017-07-20] MEDS: DULOXETINE 30 MG CAP DR PO ×2 (20:53→21:00)
[2017-07-20] MEDS: hydrALAzine 20 MG INJ IV (21:28)
[2017-07-21] MEDS: ONDANSETRON INJ 8 MG in DEXTROSE 5% 50 ML IV ×2 (00:38→06:34)
[2017-07-21] MEDS: DEXTROSE 5%-0.45% NACL 1,000 ML IV ×2 (04:31→06:33)
[2017-07-21] MEDS: HYDROmorphONE 0.2 MG/ML PCA IV (05:54)
[2017-07-21] MEDS: FAMOTIDINE 20 MG TAB PO (09:01)
[2017-07-21] MEDS: LACTOBACILLUS RHAMNOSUS CAP PO ×2 (09:01→20:21)
[2017-07-21] MEDS: METHYLPREDNISOLONE 125 MG INJ IV ×2 (09:01→20:22)
[2017-07-21] MEDS: HEPARIN 5,000 UNIT/0.5 ML VIAL SC ×2 (09:02→20:23)
[2017-07-21] MEDS: DULOXETINE 30 MG CAP DR PO (20:21)
[2017-07-22] MEDS: DEXTROSE 5%-0.45% NACL 1,000 ML IV (04:22)
[2017-07-22] MEDS: METOCLOPRAMIDE 10 MG INJ IV ×4 (05:39→17:27)
[2017-07-22 07:16] LABS: ADD MAN DIFF? NO
[2017-07-22 07:20] LABS: WHITE BLOOD COUNT 4.8 10^3/ul (4.8-10.8)
[2017-07-22 07:20] LABS: ABNORMAL IP MESSAGE 1; HEMATOCRIT 28.7 % (37.0-47.0); HEMOGLOBIN 9.2 g/dl (12.0-16.0); LYMPHOCYTES # 0.4 10^3/ul (0.8-2.9); LYMPHOCYTES % 7.7 % (15.0-51.0); MEAN CORPUSCULAR HEMOGLOBIN 25.4 pg (29.0-33.0); MEAN CORPUSCULAR HGB CONC 32.1 g/dl (32.0-37.0); MEAN CORPUSCULAR VOLUME 79.3 fl (82.0-101.0); MEAN PLATELET VOLUME 10.7 fl (7.4-10.4); MONOCYTE # 0.3 10^3/ul (0.3-0.9); MONOCYTES % 6.7 % (0.0-11.0); NEUTROPHILS % 83.3 % (39.0-77.0); PLATELET COUNT 240 10^3/UL (140-415); RED BLOOD COUNT 3.62 10^6/ul (4.20-5.40); RED CELL DISTRIBUTION WIDTH 16.4 % (11.5-14.5)
[2017-07-22 07:33] LABS: POSITIVE DIFF @See below
[2017-07-22 07:55] LABS: ALANINE AMINOTRANSFERASE 27 IU/L (13-69); ALBUMIN 2.9 g/dl (3.3-4.9); ALKALINE PHOSPHATASE 86 IU/L (42-121); ANION GAP 9 (8-16); ASPARTATE AMINO TRANSFERASE 59 IU/L (15-46); BILIRUBIN,INDIRECT 0.2 mg/dl (0-1.1); BILIRUBIN,TOTAL 0.2 mg/dl (0.2-1.3); BLOOD UREA NITROGEN 8 mg/dl (7-20); CALCIUM 9.1 mg/dl (8.4-10.2); CARBON DIOXIDE 35 mmol/L (21-31); CHLORIDE 94 mmol/L (97-110); GLUCOSE 106 mg/dl (70-220); POTASSIUM 3.5 mmol/L (3.5-5.1); SODIUM 134 mmol/L (135-144); TOTAL PROTEIN 5.3 g/dl (6.1-8.1)
[2017-07-22 08:17] LABS: CARCINOEMBRYONIC ANTIGEN 0.7 ng/ml (0.0-5.0)
[2017-07-22] MEDS: FAMOTIDINE 20 MG TAB PO (09:34)
[2017-07-22] MEDS: METHYLPREDNISOLONE 125 MG INJ IV ×2 (09:34→20:50)
[2017-07-22] MEDS: LACTOBACILLUS RHAMNOSUS CAP PO ×2 (09:34→20:50)
[2017-07-22] MEDS: HEPARIN 5,000 UNIT/0.5 ML VIAL SC ×2 (09:35→20:51)
[2017-07-22] MEDS: HYDROmorphONE 0.2 MG/ML PCA IV (12:09)
[2017-07-22] MEDS: SOD CHLORIDE 0.9% 100 ML (13:05)
[2017-07-22] MEDS: IOHEXOL 300MG/ML 150 ML BTL (13:06)
[2017-07-22 15:39] LABS: INR 1.02; PROTIME 13.5 Sec (11.9-14.9); PT RATIO 1.1
[2017-07-22 15:40] LABS: PARTIAL THROMBOPLASTIN TIME 28.1 Sec (25.0-35.0)
[2017-07-22] MEDS: MINERAL OIL 30ML CUP PO (17:27)
[2017-07-22] MEDS: DULOXETINE 30 MG CAP DR PO (20:50)
[2017-07-22] MEDS: ONDANSETRON 4 MG INJ IV (20:50)
[2017-07-23] MEDS: METOCLOPRAMIDE 10 MG INJ IV ×3 (00:30→20:14)
[2017-07-23] MEDS: MINERAL OIL 30ML CUP PO ×5 (00:30→23:28)
[2017-07-23] MEDS: HYDROmorphONE 0.2 MG/ML PCA IV ×2 (04:04→20:16)
[2017-07-23] MEDS: DEXTROSE 5%-0.45% NACL 1,000 ML IV (06:01)
[2017-07-23] MEDS: FAMOTIDINE 20 MG TAB PO (09:00)
[2017-07-23] MEDS: LACTOBACILLUS RHAMNOSUS CAP PO ×2 (09:00→21:00)
[2017-07-23] MEDS: METHYLPREDNISOLONE 125 MG INJ IV (09:00)
[2017-07-23] MEDS: HEPARIN 5,000 UNIT/0.5 ML VIAL SC ×2 (09:02→20:26)
[2017-07-23 10:37] LABS: CA27.29 357 U/mL (<38)
[2017-07-23] MEDS ORDERED: MINERAL OIL 133 ML ENEMA PR (18:00)
[2017-07-23] MEDS: DULOXETINE 30 MG CAP DR PO (21:00)
[2017-07-23] MEDS: MINERAL OIL 133 ML ENEMA PR (21:00)
[2017-07-23] MEDS: DOCUSATE SODIUM 100 MG CAP PO (21:00)
[2017-07-23] MEDS: ONDANSETRON INJ 8 MG in DEXTROSE 5% 50 ML IV (21:56)
[2017-07-24] MEDS: morphine 2 MG INJ IV ×2 (01:17→20:23)
[2017-07-24] MEDS: METOCLOPRAMIDE 10 MG INJ IV ×3 (02:35→22:56)
[2017-07-24] MEDS: ONDANSETRON INJ 8 MG in DEXTROSE 5% 50 ML IV ×3 (05:25→20:53)
[2017-07-24] MEDS: DEXTROSE 5%-0.45% NACL 1,000 ML IV ×2 (05:28→12:31)
[2017-07-24] MEDS: MINERAL OIL 30ML CUP PO ×4 (05:29→23:21)
[2017-07-24 05:52] LABS: ADD MAN DIFF? NO
[2017-07-24 05:57] LABS: WHITE BLOOD COUNT 5.8 10^3/ul (4.8-10.8)
[2017-07-24 05:57] LABS: ABNORMAL IP MESSAGE 1; BASOPHILS % 0.2 % (0.0-2.0); EOSINOPHILS % 0.2 % (0.0-7.0); HEMATOCRIT 31.4 % (37.0-47.0); HEMOGLOBIN 10.1 g/dl (12.0-16.0); LYMPHOCYTES # 0.4 10^3/ul (0.8-2.9); LYMPHOCYTES % 6.5 % (15.0-51.0); MEAN CORPUSCULAR HEMOGLOBIN 25.8 pg (29.0-33.0); MEAN CORPUSCULAR HGB CONC 32.2 g/dl (32.0-37.0); MEAN CORPUSCULAR VOLUME 80.3 fl (82.0-101.0); MEAN PLATELET VOLUME 10.1 fl (7.4-10.4); MONOCYTE # 0.3 10^3/ul (0.3-0.9); MONOCYTES % 4.6 % (0.0-11.0); NEUTROPHIL # 5.1 10^3/ul (1.6-7.5); NEUTROPHILS % 86.6 % (39.0-77.0); PLATELET COUNT 200 10^3/UL (140-415); RED BLOOD COUNT 3.91 10^6/ul (4.20-5.40); RED CELL DISTRIBUTION WIDTH 16.8 % (11.5-14.5)
[2017-07-24 06:19] LABS: ANION GAP 8 (8-16); BLOOD UREA NITROGEN 11 mg/dl (7-20); CALCIUM 9.6 mg/dl (8.4-10.2); CARBON DIOXIDE 32 mmol/L (21-31); CHLORIDE 94 mmol/L (97-110); CREATININE 0.78 mg/dl (0.44-1.00); GLUCOSE 108 mg/dl (70-220); MAGNESIUM 1.6 mg/dl (1.7-2.5); PHOSPHORUS 4.1 mg/dl (2.5-4.9); POTASSIUM 3.2 mmol/L (3.5-5.1); SODIUM 131 mmol/L (135-144)
[2017-07-24 06:52] LABS: POSITIVE DIFF @See below
[2017-07-24] MEDS: TRIMETHOBENZAMIDE 100 MG/ML VIAL IM (08:10)
[2017-07-24] MEDS: DOCUSATE SODIUM 100 MG CAP PO ×2 (09:00→21:00)
[2017-07-24] MEDS: FAMOTIDINE 20 MG TAB PO (09:00)
[2017-07-24] MEDS: LACTOBACILLUS RHAMNOSUS CAP PO ×2 (09:00→22:45)
[2017-07-24] MEDS: predniSONE 20 MG TAB PO (09:00)
[2017-07-24] MEDS: HEPARIN 5,000 UNIT/0.5 ML VIAL SC ×2 (09:42→20:32)
[2017-07-24] MEDS: HYDROmorphONE 0.2 MG/ML PCA IV (09:43)
[2017-07-24] MEDS: ANASTROZOLE 1 MG TAB PO (12:45)
[2017-07-24] MEDS: MINERAL OIL 133 ML ENEMA PR ×2 (13:55→20:08)
[2017-07-24] MEDS: DULOXETINE 30 MG CAP DR PO (22:45)
[2017-07-24] MEDS: POTASSIUM CHLORIDE (SR) 20 MEQ TAB PO (22:49)
[2017-07-25] MEDS: HYDROmorphONE 0.2 MG/ML PCA IV ×2 (00:08→09:06)
[2017-07-25] MEDS: MAGNESIUM SULFATE 2 GM/50 ML 50 ML IVPB (00:25)
[2017-07-25] MEDS: TRIMETHOBENZAMIDE 100 MG/ML VIAL IM (03:15)
[2017-07-25] MEDS: MINERAL OIL 30ML CUP PO ×3 (06:00→17:19)
[2017-07-25 07:12] LABS: ADD MAN DIFF? NO
[2017-07-25 07:16] LABS: WHITE BLOOD COUNT 7.5 10^3/ul (4.8-10.8)
[2017-07-25 07:16] LABS: ABNORMAL IP MESSAGE 1; BASOPHILS % 0.1 % (0.0-2.0); EOSINOPHILS % 0.3 % (0.0-7.0); HEMATOCRIT 30.9 % (37.0-47.0); HEMOGLOBIN 9.7 g/dl (12.0-16.0); LYMPHOCYTES # 0.4 10^3/ul (0.8-2.9); LYMPHOCYTES % 5.3 % (15.0-51.0); MEAN CORPUSCULAR HEMOGLOBIN 25.7 pg (29.0-33.0); MEAN CORPUSCULAR HGB CONC 31.4 g/dl (32.0-37.0); MEAN CORPUSCULAR VOLUME 81.7 fl (82.0-101.0); MONOCYTE # 0.2 10^3/ul (0.3-0.9); MONOCYTES % 2.7 % (0.0-11.0); NEUTROPHIL # 6.8 10^3/ul (1.6-7.5); PLATELET COUNT 173 10^3/UL (140-415); RED BLOOD COUNT 3.78 10^6/ul (4.20-5.40); RED CELL DISTRIBUTION WIDTH 17.1 % (11.5-14.5)
[2017-07-25 07:22] LABS: POSITIVE DIFF @See below
[2017-07-25 08:17] LABS: ANION GAP 13 (8-16); BLOOD UREA NITROGEN 16 mg/dl (7-20); CALCIUM 9.4 mg/dl (8.4-10.2); CARBON DIOXIDE 28 mmol/L (21-31); CHLORIDE 93 mmol/L (97-110); CREATININE 1.05 mg/dl (0.44-1.00); GLUCOSE 126 mg/dl (70-220); POTASSIUM 4.2 mmol/L (3.5-5.1); SODIUM 130 mmol/L (135-144)
[2017-07-25] MEDS: DEXTROSE 5%-0.45% NACL 1,000 ML IV ×2 (08:31→09:18)
[2017-07-25] MEDS: DOCUSATE SODIUM 100 MG CAP PO ×2 (09:04→21:30)
[2017-07-25] MEDS: LACTOBACILLUS RHAMNOSUS CAP PO ×2 (09:04→21:30)
[2017-07-25] MEDS: predniSONE 20 MG TAB PO (09:04)
[2017-07-25] MEDS: HEPARIN 5,000 UNIT/0.5 ML VIAL SC ×2 (09:05→21:32)
[2017-07-25] MEDS: ANASTROZOLE 1 MG TAB PO (09:05)
[2017-07-25] MEDS: FAMOTIDINE 20 MG TAB PO (09:13)
[2017-07-25] MEDS: LACTULOSE 30ML CUP PO ×3 (10:56→17:19)
[2017-07-25] MEDS: MINERAL OIL 133 ML ENEMA PR (15:58)
[2017-07-25] MEDS: DULOXETINE 30 MG CAP DR PO (21:00)
[2017-07-25] MEDS: METOCLOPRAMIDE 10 MG INJ IV (21:37)
[2017-07-26] MEDS: MINERAL OIL 30ML CUP PO ×3 (00:21→12:00)
[2017-07-26] MEDS: LACTULOSE 30ML CUP PO ×3 (00:21→12:00)
[2017-07-26] MEDS: MINERAL OIL 133 ML ENEMA PR (00:29)
[2017-07-26] MEDS: DEXTROSE 5%-0.45% NACL 1,000 ML IV (04:31)
[2017-07-26 06:03] LABS: ADD MAN DIFF? NO
[2017-07-26] MEDS: METOCLOPRAMIDE 10 MG INJ IV (06:06)
[2017-07-26 06:09] LABS: BASOPHILS % 0.2 % (0.0-2.0); HEMATOCRIT 33.5 % (37.0-47.0); HEMOGLOBIN 10.8 g/dl (12.0-16.0); LYMPHOCYTES # 1.4 10^3/ul (0.8-2.9); LYMPHOCYTES % 12.4 % (15.0-51.0); MEAN CORPUSCULAR HEMOGLOBIN 25.9 pg (29.0-33.0); MEAN CORPUSCULAR HGB CONC 32.2 g/dl (32.0-37.0); MEAN CORPUSCULAR VOLUME 80.3 fl (82.0-101.0); MEAN PLATELET VOLUME 11.6 fl (7.4-10.4); MONOCYTE # 0.6 10^3/ul (0.3-0.9); MONOCYTES % 5.4 % (0.0-11.0); NEUTROPHIL # 8.9 10^3/ul (1.6-7.5); NEUTROPHILS % 79.9 % (39.0-77.0); NUCLEATED RED BLOOD CELLS% 0.3 /100WBC (0.0-0.0); PLATELET COUNT 130 10^3/UL (140-415); RED BLOOD COUNT 4.17 10^6/ul (4.20-5.40); RED CELL DISTRIBUTION WIDTH 18.1 % (11.5-14.5)
[2017-07-26 06:09] LABS: WHITE BLOOD COUNT 11.2 10^3/ul (4.8-10.8)
[2017-07-26 06:35] LABS: ANION GAP 16 (8-16); BLOOD UREA NITROGEN 23 mg/dl (7-20); CALCIUM 9.2 mg/dl (8.4-10.2); CARBON DIOXIDE 27 mmol/L (21-31); CHLORIDE 92 mmol/L (97-110); CREATININE 1.09 mg/dl (0.44-1.00); GLUCOSE 151 mg/dl (70-220); SODIUM 128 mmol/L (135-144)
[2017-07-26 06:56] LABS: POTASSIUM 6.8 mmol/L (3.5-5.1)
[2017-07-26] MEDS: NA POLYST SULFON 15 GM/60 ML BTL PO (08:14)
[2017-07-26] MEDS: DEXTROSE 50% 50 ML SYRINGE IV (08:15)
[2017-07-26] MEDS: CALCIUM GLUCONATE 10% 1 GM in DEXTROSE 5% 100 ML IVPB (08:16)
[2017-07-26] MEDS: INSULIN ASPART [NOVOLOG] 3 ML PEN SC (08:17)
[2017-07-26] MEDS: LACTOBACILLUS RHAMNOSUS CAP PO ×2 (10:00→21:06)
[2017-07-26] MEDS: ANASTROZOLE 1 MG TAB PO (10:01)
[2017-07-26] MEDS: HEPARIN 5,000 UNIT/0.5 ML VIAL SC ×2 (10:01→21:07)
[2017-07-26] MEDS: predniSONE 20 MG TAB PO (10:01)
[2017-07-26] MEDS: FAMOTIDINE 20 MG TAB PO (10:02)
[2017-07-26] MEDS: ALBUTEROL HFA 8 GM INHALER INH (10:03)
[2017-07-26] MEDS: DOCUSATE SODIUM 100 MG CAP PO (10:03)
[2017-07-26 15:37] LABS: ANION GAP 12 (8-16); BLOOD UREA NITROGEN 21 mg/dl (7-20); CALCIUM 8.8 mg/dl (8.4-10.2); CARBON DIOXIDE 28 mmol/L (21-31); CHLORIDE 92 mmol/L (97-110); CREATININE 1.01 mg/dl (0.44-1.00); GLUCOSE 179 mg/dl (70-220); POTASSIUM 4.1 mmol/L (3.5-5.1); SODIUM 128 mmol/L (135-144)
[2017-07-26] MEDS ORDERED: LACTULOSE 30ML CUP PO (16:30)
[2017-07-26] MEDS ORDERED: MINERAL OIL 30ML CUP PO (16:30)
[2017-07-26] MEDS: DULOXETINE 30 MG CAP DR PO (21:06)
[2017-07-27] MEDS: DEXTROSE 5%-0.45% NACL 1,000 ML IV (00:21)
[2017-07-27] MEDS: HYDROmorphONE 0.2 MG/ML PCA IV (00:22)
[2017-07-27 01:21] LABS: MAGNESIUM 2.1 mg/dl (1.7-2.5)
[2017-07-27 01:54] LABS: POTASSIUM 3.9 mmol/L (3.5-5.1)
[2017-07-27] MEDS: METOCLOPRAMIDE 10 MG INJ IV ×2 (04:48→22:01)
[2017-07-27 06:39] LABS: ADD MAN DIFF? NO
[2017-07-27 06:42] LABS: WHITE BLOOD COUNT 5.4 10^3/ul (4.8-10.8)
[2017-07-27 06:42] LABS: ABNORMAL IP MESSAGE 1; HEMATOCRIT 24.5 % (37.0-47.0); HEMOGLOBIN 8.1 g/dl (12.0-16.0); LYMPHOCYTES # 0.4 10^3/ul (0.8-2.9); LYMPHOCYTES % 7.6 % (15.0-51.0); MEAN CORPUSCULAR HGB CONC 33.1 g/dl (32.0-37.0); MEAN CORPUSCULAR VOLUME 78.5 fl (82.0-101.0); MEAN PLATELET VOLUME 11.4 fl (7.4-10.4); MONOCYTE # 0.2 10^3/ul (0.3-0.9); MONOCYTES % 4.1 % (0.0-11.0); NEUTROPHIL # 4.7 10^3/ul (1.6-7.5); PLATELET COUNT 146 10^3/UL (140-415); RED BLOOD COUNT 3.12 10^6/ul (4.20-5.40); RED CELL DISTRIBUTION WIDTH 18.1 % (11.5-14.5)
[2017-07-27 06:57] LABS: POSITIVE DIFF @See below
[2017-07-27 07:02] LABS: ANION GAP 9 (8-16); BLOOD UREA NITROGEN 19 mg/dl (7-20); CARBON DIOXIDE 30 mmol/L (21-31); CHLORIDE 93 mmol/L (97-110); CREATININE 0.85 mg/dl (0.44-1.00); GLUCOSE 130 mg/dl (70-220); POTASSIUM 3.9 mmol/L (3.5-5.1); SODIUM 128 mmol/L (135-144)
[2017-07-27 07:09] LABS: INR 1.32; PT RATIO 1.3
[2017-07-27 07:10] LABS: PARTIAL THROMBOPLASTIN TIME 38.1 Sec (25.0-35.0)
[2017-07-27 07:44] LABS: PROTIME 16.6 Sec (11.9-14.9)
[2017-07-27] MEDS: HEPARIN 5,000 UNIT/0.5 ML VIAL SC ×2 (09:00→21:13)
[2017-07-27] MEDS: FAMOTIDINE 20 MG TAB PO (09:00)
[2017-07-27] MEDS: ANASTROZOLE 1 MG TAB PO (09:00)
[2017-07-27] MEDS ORDERED: predniSONE 20 MG TAB PO (09:00)
[2017-07-27] MEDS: morphine (ER) 15 MG TAB PO ×2 (12:30→22:02)
[2017-07-27 13:20] LABS: IMMEDIATE SPIN CROSSMATCH 1 1
[2017-07-27] MEDS: LIDOCAINE 1% (MDV) 20 ML INJ (15:50)
[2017-07-27] MEDS: FENTAnyl 50 MCG/ML VIAL (16:34)
[2017-07-27] MEDS: MIDAZOLAM 1 MG/ML 2 ML INJ (16:34)
[2017-07-27] MEDS: DULOXETINE 30 MG CAP DR PO (21:00)
[2017-07-27] MEDS: morphine LIQ (10 MG/5 ML) CUP PO (23:06)
[2017-07-28] MEDS: ONDANSETRON INJ 8 MG in DEXTROSE 5% 50 ML IV (00:32)
[2017-07-28] MEDS: morphine LIQ (10 MG/5 ML) CUP PO (04:14)
[2017-07-28] MEDS: METOCLOPRAMIDE 10 MG INJ IV ×2 (04:15→20:44)
[2017-07-28 05:50] LABS: ADD MAN DIFF? NO
[2017-07-28 06:02] LABS: ABNORMAL IP MESSAGE 1; EOSINOPHILS % 0.3 % (0.0-7.0); HEMATOCRIT 21.9 % (37.0-47.0); HEMOGLOBIN 7.2 g/dl (12.0-16.0); LYMPHOCYTES # 0.3 10^3/ul (0.8-2.9); LYMPHOCYTES % 6.8 % (15.0-51.0); MEAN CORPUSCULAR HEMOGLOBIN 25.9 pg (29.0-33.0); MEAN CORPUSCULAR HGB CONC 32.9 g/dl (32.0-37.0); MEAN CORPUSCULAR VOLUME 78.8 fl (82.0-101.0); MEAN PLATELET VOLUME 10.4 fl (7.4-10.4); MONOCYTE # 0.2 10^3/ul (0.3-0.9); MONOCYTES % 3.9 % (0.0-11.0); NEUTROPHIL # 3.4 10^3/ul (1.6-7.5); NEUTROPHILS % 88.5 % (39.0-77.0); PLATELET COUNT 136 10^3/UL (140-415); RED BLOOD COUNT 2.78 10^6/ul (4.20-5.40)
[2017-07-28 06:02] LABS: WHITE BLOOD COUNT 3.8 10^3/ul (4.8-10.8)
[2017-07-28 06:15] LABS: ANION GAP 7 (8-16); BLOOD UREA NITROGEN 14 mg/dl (7-20); CALCIUM 8.9 mg/dl (8.4-10.2); CARBON DIOXIDE 32 mmol/L (21-31); CHLORIDE 93 mmol/L (97-110); CREATININE 0.75 mg/dl (0.44-1.00); GLUCOSE 99 mg/dl (70-220); POTASSIUM 3.6 mmol/L (3.5-5.1); SODIUM 128 mmol/L (135-144)
[2017-07-28 06:19] LABS: POSITIVE DIFF @See below
[2017-07-28] MEDS: HEPARIN 5,000 UNIT/0.5 ML VIAL SC ×2 (08:45→21:10)
[2017-07-28] MEDS: ANASTROZOLE 1 MG TAB PO (08:45)
[2017-07-28] MEDS: morphine (ER) 15 MG TAB PO (08:46)
[2017-07-28] MEDS: METHADONE (1 MG/1 ML PO SYG) PO ×2 (16:15→21:37)
[2017-07-28] MEDS: DULOXETINE 30 MG CAP DR PO (21:09)
[2017-07-28 22:21] LABS: IMMEDIATE SPIN CROSSMATCH 1
[2017-07-29] MEDS: METHADONE (1 MG/1 ML PO SYG) PO ×3 (05:31→21:41)
[2017-07-29 05:56] LABS: ADD MAN DIFF? NO
[2017-07-29 05:58] LABS: WHITE BLOOD COUNT 4.2 10^3/ul (4.8-10.8)
[2017-07-29 05:58] LABS: ABNORMAL IP MESSAGE 1; BASOPHILS % 0.2 % (0.0-2.0); EOSINOPHILS % 0.2 % (0.0-7.0); HEMATOCRIT 27.1 % (37.0-47.0); HEMOGLOBIN 9.1 g/dl (12.0-16.0); LYMPHOCYTES # 0.3 10^3/ul (0.8-2.9); LYMPHOCYTES % 7.8 % (15.0-51.0); MEAN CORPUSCULAR HEMOGLOBIN 27.1 pg (29.0-33.0); MEAN CORPUSCULAR HGB CONC 33.6 g/dl (32.0-37.0); MEAN CORPUSCULAR VOLUME 80.7 fl (82.0-101.0); MEAN PLATELET VOLUME 9.9 fl (7.4-10.4); MONOCYTE # 0.2 10^3/ul (0.3-0.9); NEUTROPHIL # 3.7 10^3/ul (1.6-7.5); NEUTROPHILS % 86.8 % (39.0-77.0); PLATELET COUNT 139 10^3/UL (140-415); RED BLOOD COUNT 3.36 10^6/ul (4.20-5.40); RED CELL DISTRIBUTION WIDTH 17.9 % (11.5-14.5)
[2017-07-29 06:13] LABS: POSITIVE DIFF @See below
[2017-07-29 06:51] LABS: ANION GAP 7 (8-16); BLOOD UREA NITROGEN 11 mg/dl (7-20); CALCIUM 8.8 mg/dl (8.4-10.2); CARBON DIOXIDE 33 mmol/L (21-31); CHLORIDE 92 mmol/L (97-110); CREATININE 0.75 mg/dl (0.44-1.00); GLUCOSE 86 mg/dl (70-220); POTASSIUM 3.8 mmol/L (3.5-5.1); SODIUM 128 mmol/L (135-144)
[2017-07-29 06:56] LABS: IRON 43 ug/dl (35-150)
[2017-07-29 07:05] LABS: % IRON SATURATION 21 % SAT (22-52); TOTAL IRON BINDING CAPACITY 201 ug/dl (241-421)
[2017-07-29] MEDS: HEPARIN 5,000 UNIT/0.5 ML VIAL SC ×2 (09:50→20:52)
[2017-07-29] MEDS: ANASTROZOLE 1 MG TAB PO (09:50)
[2017-07-29 11:13] LABS: URIC ACID 6.6 mg/dl (3.1-7.9)
[2017-07-29 11:21] LABS: LACTATE DEHYDROGENASE 5538 IU/L (313-618)
[2017-07-29 13:37] LABS: IMMUNOGLOBULIN A 86 mg/dl (70-400); IMMUNOGLOBULIN G 410 mg/dl (700-1600); IMMUNOGLOBULIN M 35 mg/dl (40-230)
[2017-07-29] MEDS: DULOXETINE 30 MG CAP DR PO (20:51)
[2017-07-30 03:07] LABS: PROTEIN, TOTAL 4.7 g/dL (6.1-8.1)
[2017-07-30] MEDS: METHADONE (1 MG/1 ML PO SYG) PO ×3 (05:58→22:33)
[2017-07-30 06:23] LABS: ADD MAN DIFF? NO
[2017-07-30 06:31] LABS: WHITE BLOOD COUNT 3.8 10^3/ul (4.8-10.8)
[2017-07-30 06:31] LABS: ABNORMAL IP MESSAGE 1; BASOPHILS % 0.3 % (0.0-2.0); EOSINOPHILS % 0.8 % (0.0-7.0); HEMATOCRIT 27.9 % (37.0-47.0); HEMOGLOBIN 9.4 g/dl (12.0-16.0); LYMPHOCYTES # 0.4 10^3/ul (0.8-2.9); LYMPHOCYTES % 9.2 % (15.0-51.0); MEAN CORPUSCULAR HEMOGLOBIN 27.2 pg (29.0-33.0); MEAN CORPUSCULAR HGB CONC 33.7 g/dl (32.0-37.0); MEAN CORPUSCULAR VOLUME 80.9 fl (82.0-101.0); MEAN PLATELET VOLUME 10.5 fl (7.4-10.4); MONOCYTE # 0.2 10^3/ul (0.3-0.9); MONOCYTES % 5.3 % (0.0-11.0); NEUTROPHIL # 3.1 10^3/ul (1.6-7.5); NEUTROPHILS % 82.8 % (39.0-77.0); PLATELET COUNT 151 10^3/UL (140-415); RED BLOOD COUNT 3.45 10^6/ul (4.20-5.40); RED CELL DISTRIBUTION WIDTH 17.8 % (11.5-14.5)
[2017-07-30 06:34] LABS: POSITIVE DIFF @See below
[2017-07-30] MEDS: HEPARIN 5,000 UNIT/0.5 ML VIAL SC ×2 (09:17→20:49)
[2017-07-30] MEDS: ANASTROZOLE 1 MG TAB PO (09:17)
[2017-07-30 15:15] LABS: BETA-2 MICROGLOBULIN 4.69 mg/L (< OR = 2.51)
[2017-07-30] MEDS: BALSAM PERU/CASTOR OIL 60 GM TUBE TOP ×2 (15:21→20:47)
[2017-07-30 16:48] LABS: ALBUMIN 2.2 g/dL (3.8-4.8); ALPHA-1-GLOBULINS 0.5 g/dL (0.2-0.3); ALPHA-2-GLOBULINS 0.9 g/dL (0.5-0.9); BETA 2 GLOBULINS 0.4 g/dL (0.2-0.5); BETA GLOBULINS 0.3 g/dL (0.4-0.6); GAMMA GLOBULINS 0.4 g/dL (0.8-1.7)
[2017-07-30] MEDS: DULOXETINE 30 MG CAP DR PO (20:47)
[2017-07-31 05:48] LABS: ADD MAN DIFF? NO
[2017-07-31 06:16] LABS: ANION GAP 9 (8-16); BLOOD UREA NITROGEN 8 mg/dl (7-20); CALCIUM 8.7 mg/dl (8.4-10.2); CARBON DIOXIDE 33 mmol/L (21-31); CHLORIDE 92 mmol/L (97-110); CREATININE 0.64 mg/dl (0.44-1.00); GLUCOSE 74 mg/dl (70-220); POTASSIUM 3.8 mmol/L (3.5-5.1); SODIUM 130 mmol/L (135-144)
[2017-07-31] MEDS: METHADONE (1 MG/1 ML PO SYG) PO ×3 (06:18→22:00)
[2017-07-31 06:19] LABS: WHITE BLOOD COUNT 3.2 10^3/ul (4.8-10.8)
[2017-07-31 06:19] LABS: ABNORMAL IP MESSAGE 1; BASOPHILS % 0.6 % (0.0-2.0); EOSINOPHILS % 0.6 % (0.0-7.0); HEMATOCRIT 27.9 % (37.0-47.0); HEMOGLOBIN 9.2 g/dl (12.0-16.0); LYMPHOCYTES # 0.3 10^3/ul (0.8-2.9); LYMPHOCYTES % 10.7 % (15.0-51.0); MEAN CORPUSCULAR HEMOGLOBIN 26.8 pg (29.0-33.0); MEAN CORPUSCULAR VOLUME 81.3 fl (82.0-101.0); MEAN PLATELET VOLUME 9.9 fl (7.4-10.4); MONOCYTE # 0.2 10^3/ul (0.3-0.9); MONOCYTES % 6.3 % (0.0-11.0); NEUTROPHIL # 2.5 10^3/ul (1.6-7.5); PLATELET COUNT 140 10^3/UL (140-415); RED BLOOD COUNT 3.43 10^6/ul (4.20-5.40); RED CELL DISTRIBUTION WIDTH 17.8 % (11.5-14.5)
[2017-07-31] MEDS: METOCLOPRAMIDE 10 MG INJ IV ×2 (06:23→22:06)
[2017-07-31 06:25] LABS: POSITIVE DIFF @See below
[2017-07-31] MEDS: HEPARIN 5,000 UNIT/0.5 ML VIAL SC ×2 (08:29→20:31)
[2017-07-31] MEDS: ANASTROZOLE 1 MG TAB PO (08:29)
[2017-07-31] MEDS: BALSAM PERU/CASTOR OIL 60 GM TUBE TOP ×2 (10:15→20:39)
[2017-07-31] MEDS: ALLOPURINOL 300 MG TAB PO (10:15)
[2017-07-31] MEDS: DOCUSATE SODIUM 250 MG CAP PO (20:29)
[2017-07-31] MEDS: DULOXETINE 30 MG CAP DR PO (20:30)
[2017-08-01] MEDS: METHADONE (1 MG/1 ML PO SYG) PO ×3 (06:00→21:36)
[2017-08-01] MEDS: ANASTROZOLE 1 MG TAB PO (08:04)
[2017-08-01] MEDS: HEPARIN 5,000 UNIT/0.5 ML VIAL SC ×2 (08:04→21:32)
[2017-08-01] MEDS: DOCUSATE SODIUM 100 MG CAP PO (08:04)
[2017-08-01] MEDS: ALLOPURINOL 300 MG TAB PO (08:07)
[2017-08-01] MEDS: BALSAM PERU/CASTOR OIL 60 GM TUBE TOP ×2 (08:08→21:36)
[2017-08-01] MEDS: DOCUSATE SODIUM 250 MG CAP PO (21:35)
[2017-08-01] MEDS: DULOXETINE 30 MG CAP DR PO (21:35)
[2017-08-02] MEDS: ONDANSETRON INJ 8 MG in DEXTROSE 5% 50 ML IV ×2 (01:02→12:01)
[2017-08-02] MEDS: METHADONE (1 MG/1 ML PO SYG) PO ×3 (05:28→22:12)
[2017-08-02] MEDS: ALLOPURINOL 300 MG TAB PO (10:02)
[2017-08-02] MEDS: BALSAM PERU/CASTOR OIL 60 GM TUBE TOP ×2 (10:02→21:01)
[2017-08-02] MEDS: HEPARIN 5,000 UNIT/0.5 ML VIAL SC ×2 (10:04→20:53)
[2017-08-02] MEDS: ANASTROZOLE 1 MG TAB PO (10:07)
[2017-08-02] MEDS ORDERED: BISACODYL 10 MG SUPP PR (10:30)
[2017-08-02] MEDS: ENOXAPARIN 30 MG/0.3 ML SYG SC (10:30)
[2017-08-02] MEDS: MAGNESIUM HYDROXIDE 30ML CUP PO ×2 (12:01→20:51)
[2017-08-02] MEDS: FAMOTIDINE 20 MG INJ IV (12:01)
[2017-08-02 12:31] LABS: LIPASE 83 U/L (23-300)
[2017-08-02 19:16] LABS: OCCULT BLOOD STOOL NEGATIVE (NEGATIVE)
[2017-08-02] MEDS: DULOXETINE 30 MG CAP DR PO (20:51)
[2017-08-02] MEDS: DOCUSATE SODIUM 250 MG CAP PO (20:53)
[2017-08-03 05:00] LABS: ADD MAN DIFF? NO
[2017-08-03 05:02] LABS: WHITE BLOOD COUNT 3.1 10^3/ul (4.8-10.8)
[2017-08-03 05:02] LABS: ABNORMAL IP MESSAGE 1; EOSINOPHILS % 1.3 % (0.0-7.0); HEMATOCRIT 28.1 % (37.0-47.0); HEMOGLOBIN 9.2 g/dl (12.0-16.0); LYMPHOCYTES # 0.4 10^3/ul (0.8-2.9); LYMPHOCYTES % 14.4 % (15.0-51.0); MEAN CORPUSCULAR HEMOGLOBIN 26.6 pg (29.0-33.0); MEAN CORPUSCULAR HGB CONC 32.7 g/dl (32.0-37.0); MEAN CORPUSCULAR VOLUME 81.2 fl (82.0-101.0); MEAN PLATELET VOLUME 9.3 fl (7.4-10.4); MONOCYTE # 0.2 10^3/ul (0.3-0.9); MONOCYTES % 6.2 % (0.0-11.0); NEUTROPHIL # 2.3 10^3/ul (1.6-7.5); NEUTROPHILS % 74.1 % (39.0-77.0); PLATELET COUNT 150 10^3/UL (140-415); RED BLOOD COUNT 3.46 10^6/ul (4.20-5.40); RED CELL DISTRIBUTION WIDTH 17.5 % (11.5-14.5)
[2017-08-03 05:04] LABS: POSITIVE DIFF @See below
[2017-08-03] MEDS: METHADONE (1 MG/1 ML PO SYG) PO ×3 (05:23→21:46)
[2017-08-03 05:29] LABS: ALANINE AMINOTRANSFERASE 30 IU/L (13-69); ALBUMIN 2.6 g/dl (3.3-4.9); ALBUMIN/GLOBULIN RATIO 1.13; ALKALINE PHOSPHATASE 90 IU/L (42-121); ANION GAP 10 (8-16); ASPARTATE AMINO TRANSFERASE 54 IU/L (15-46); BILIRUBIN,INDIRECT 0.2 mg/dl (0-1.1); BILIRUBIN,TOTAL 0.2 mg/dl (0.2-1.3); BLOOD UREA NITROGEN 7 mg/dl (7-20); CALCIUM 9.4 mg/dl (8.4-10.2); CARBON DIOXIDE 35 mmol/L (21-31); CHLORIDE 93 mmol/L (97-110); CREATININE 0.68 mg/dl (0.44-1.00); GLUCOSE 79 mg/dl (70-220); MAGNESIUM 1.6 mg/dl (1.7-2.5); PHOSPHORUS 3.3 mg/dl (2.5-4.9); POTASSIUM 3.5 mmol/L (3.5-5.1); SODIUM 134 mmol/L (135-144); TOTAL PROTEIN 4.9 g/dl (6.1-8.1)
[2017-08-03] MEDS: ONDANSETRON INJ 8 MG in DEXTROSE 5% 50 ML IV ×2 (06:25→22:38)
[2017-08-03] MEDS: ALLOPURINOL 300 MG TAB PO (08:46)
[2017-08-03] MEDS: MAGNESIUM HYDROXIDE 30ML CUP PO ×2 (08:46→20:49)
[2017-08-03] MEDS: FAMOTIDINE 20 MG INJ IV (08:47)
[2017-08-03] MEDS: ENOXAPARIN 30 MG/0.3 ML SYG SC (08:48)
[2017-08-03] MEDS: ANASTROZOLE 1 MG TAB PO (08:48)
[2017-08-03] MEDS: HEPARIN 5,000 UNIT/0.5 ML VIAL SC ×2 (08:49→20:49)
[2017-08-03] MEDS: BALSAM PERU/CASTOR OIL 60 GM TUBE TOP ×2 (08:50→21:02)
[2017-08-03] MEDS: DULOXETINE 30 MG CAP DR PO (20:48)
[2017-08-03] MEDS: DOCUSATE SODIUM 250 MG CAP PO (20:48)
[2017-08-03] MEDS: ALTEPLASE (CATHFLO) 2 MG INJ CATHETER (20:56)
[2017-08-04] MEDS: HYDROmorphONE 2 MG TAB PO (02:39)
[2017-08-04] MEDS: METHADONE (1 MG/1 ML PO SYG) PO ×3 (05:04→21:40)
[2017-08-04] MEDS: ALTEPLASE (CATHFLO) 2 MG INJ CATHETER ×2 (08:42→12:26)
[2017-08-04] MEDS: BALSAM PERU/CASTOR OIL 60 GM TUBE TOP ×2 (09:00→21:00)
[2017-08-04] MEDS: ENOXAPARIN 30 MG/0.3 ML SYG SC (09:00)
[2017-08-04] MEDS ORDERED: MEPERIDINE 50 MG INJ IV ×2 (09:30→16:30)
[2017-08-04] MEDS ORDERED: DIPHENHYDRAMINE 50 MG INJ IV (09:30)
[2017-08-04] MEDS: FAMOTIDINE 20 MG INJ IV (09:53)
[2017-08-04] MEDS: ALLOPURINOL 300 MG TAB PO (09:53)
[2017-08-04] MEDS: HEPARIN 5,000 UNIT/0.5 ML VIAL SC ×2 (09:54→21:42)
[2017-08-04] MEDS: ANASTROZOLE 1 MG TAB PO (09:54)
[2017-08-04] MEDS ORDERED: EPINEPHrine 1 MG INJ IM (12:00)
[2017-08-04] MEDS ORDERED: DIPHENHYDRAMINE 50 MG CAP PO (12:00)
[2017-08-04] MEDS ORDERED: DIPHENHYDRAMINE 25 MG CAP PO (12:00)
[2017-08-04] MEDS ORDERED: DEXTROSE 5% IV (13:00)
[2017-08-04] MEDS ORDERED: RITUXIMAB IV (13:00)
[2017-08-04] MEDS: predniSONE 50 MG TAB PO (15:26)
[2017-08-04] MEDS: DIPHENHYDRAMINE 50 MG INJ IV (15:26)
[2017-08-04] MEDS: ACETAMINOPHEN 500 MG TAB PO (15:30)
[2017-08-04] MEDS: ONDANSETRON INJ 16 MG, DEXAMETHASONE 4 MG/ML 20 MG in DEXTROSE 5% 50 ML IV (15:32)
[2017-08-04] MEDS: POLYETHYLENE GLYCOL 17 GM PACKET PO (15:32)
[2017-08-04] MEDS: RITUXIMAB IV (15:56)
[2017-08-04] MEDS: DEXTROSE 5% IV ×3 (15:56→23:33)
[2017-08-04] MEDS ORDERED: SOD CHLORIDE 0.9% 1,000 ML IV (19:00)
[2017-08-04] MEDS: SOD CHLORIDE 0.9% 1,000 ML IV (19:25)
[2017-08-04] MEDS: DULOXETINE 30 MG CAP DR PO ×2 (21:00→21:40)
[2017-08-04] MEDS: DOCUSATE SODIUM 250 MG CAP PO ×2 (21:00→21:40)
[2017-08-04] MEDS: CYCLOPHOSPHAMIDE IV (22:04)
[2017-08-04] MEDS: VINCRISTINE IV (23:33)
[2017-08-05] MEDS: DEXTROSE 5% IV (00:21)
[2017-08-05] MEDS: DOXORUBICIN IV (00:21)
[2017-08-05] MEDS: MAGNESIUM SULFATE 2 GM/50 ML 50 ML IVPB (02:37)
[2017-08-05] MEDS: METHADONE (1 MG/1 ML PO SYG) PO ×3 (06:00→22:00)
[2017-08-05] MEDS: ALLOPURINOL 300 MG TAB PO (08:49)
[2017-08-05] MEDS: SOD CHLORIDE 0.9% 1,000 ML IV ×2 (08:49→21:06)
[2017-08-05] MEDS: FAMOTIDINE 20 MG INJ IV (08:49)
[2017-08-05] MEDS: ANASTROZOLE 1 MG TAB PO (08:49)
[2017-08-05] MEDS: POLYETHYLENE GLYCOL 17 GM PACKET PO ×2 (08:49→09:00)
[2017-08-05] MEDS: HEPARIN 5,000 UNIT/0.5 ML VIAL SC ×3 (08:50→21:00)
[2017-08-05] MEDS: METOCLOPRAMIDE 10 MG INJ IV (08:58)
[2017-08-05] MEDS: BALSAM PERU/CASTOR OIL 60 GM TUBE TOP (09:03)
[2017-08-05 10:28] LABS: ADD MAN DIFF? NO
[2017-08-05 10:34] LABS: ABNORMAL IP MESSAGE 1; BASOPHILS % 0.3 % (0.0-2.0); EOSINOPHILS % 0.2 % (0.0-7.0); HEMATOCRIT 28.9 % (37.0-47.0); HEMOGLOBIN 9.4 g/dl (12.0-16.0); LYMPHOCYTES # 0.3 10^3/ul (0.8-2.9); LYMPHOCYTES % 4.7 % (15.0-51.0); MEAN CORPUSCULAR HEMOGLOBIN 26.9 pg (29.0-33.0); MEAN CORPUSCULAR HGB CONC 32.5 g/dl (32.0-37.0); MEAN CORPUSCULAR VOLUME 82.6 fl (82.0-101.0); MEAN PLATELET VOLUME 10.7 fl (7.4-10.4); MONOCYTE # 0.2 10^3/ul (0.3-0.9); NEUTROPHIL # 5.2 10^3/ul (1.6-7.5); NEUTROPHILS % 89.5 % (39.0-77.0); PLATELET COUNT 143 10^3/UL (140-415); RED CELL DISTRIBUTION WIDTH 17.5 % (11.5-14.5)
[2017-08-05 10:34] LABS: WHITE BLOOD COUNT 5.8 10^3/ul (4.8-10.8)
[2017-08-05 10:38] LABS: POSITIVE DIFF @See below
[2017-08-05 10:57] LABS: MAGNESIUM 2.1 mg/dl (1.7-2.5)
[2017-08-05 10:57] LABS: PHOSPHORUS 3.8 mg/dl (2.5-4.9)
[2017-08-05 10:58] LABS: ALANINE AMINOTRANSFERASE 27 IU/L (13-69); ALBUMIN 2.7 g/dl (3.3-4.9); ALBUMIN/GLOBULIN RATIO 1.17; ALKALINE PHOSPHATASE 91 IU/L (42-121); ANION GAP 10 (8-16); ASPARTATE AMINO TRANSFERASE 63 IU/L (15-46); BLOOD UREA NITROGEN 11 mg/dl (7-20); CALCIUM 8.6 mg/dl (8.4-10.2); CARBON DIOXIDE 32 mmol/L (21-31); CHLORIDE 94 mmol/L (97-110); CREATININE 0.68 mg/dl (0.44-1.00); GLUCOSE 169 mg/dl (70-220); POTASSIUM 3.8 mmol/L (3.5-5.1); SODIUM 132 mmol/L (135-144); URIC ACID 2.6 mg/dl (3.1-7.9)
[2017-08-05 11:22] LABS: LACTATE DEHYDROGENASE 5283 IU/L (313-618)
[2017-08-05] MEDS: predniSONE 50 MG TAB PO (13:48)
[2017-08-06] MEDS: METOCLOPRAMIDE 10 MG INJ IV ×2 (00:26→20:42)
[2017-08-06] MEDS: DOCUSATE SODIUM 250 MG CAP PO ×2 (00:26→20:46)
[2017-08-06] MEDS: DULOXETINE 30 MG CAP DR PO ×2 (00:26→20:46)
[2017-08-06] MEDS: HYDROmorphONE 2 MG TAB PO (00:32)
[2017-08-06] MEDS: BALSAM PERU/CASTOR OIL 60 GM TUBE TOP ×3 (02:41→20:47)
[2017-08-06 05:18] LABS: ADD MAN DIFF? NO
[2017-08-06 05:19] LABS: ABNORMAL IP MESSAGE 1; BASOPHILS % 0.2 % (0.0-2.0); HEMOGLOBIN 9.3 g/dl (12.0-16.0); LYMPHOCYTES # 0.3 10^3/ul (0.8-2.9); LYMPHOCYTES % 3.9 % (15.0-51.0); MEAN CORPUSCULAR HEMOGLOBIN 26.3 pg (29.0-33.0); MEAN CORPUSCULAR HGB CONC 32.1 g/dl (32.0-37.0); MEAN CORPUSCULAR VOLUME 82.2 fl (82.0-101.0); MEAN PLATELET VOLUME 10.3 fl (7.4-10.4); MONOCYTE # 0.2 10^3/ul (0.3-0.9); MONOCYTES % 2.9 % (0.0-11.0); NEUTROPHIL # 5.9 10^3/ul (1.6-7.5); NEUTROPHILS % 91.9 % (39.0-77.0); PLATELET COUNT 156 10^3/UL (140-415); RED BLOOD COUNT 3.53 10^6/ul (4.20-5.40); RED CELL DISTRIBUTION WIDTH 17.8 % (11.5-14.5)
[2017-08-06 05:19] LABS: WHITE BLOOD COUNT 6.5 10^3/ul (4.8-10.8)
[2017-08-06 05:36] LABS: POSITIVE DIFF @See below
[2017-08-06 06:09] LABS: ALANINE AMINOTRANSFERASE 29 IU/L (13-69); ALBUMIN 2.6 g/dl (3.3-4.9); ALBUMIN/GLOBULIN RATIO 1.08; ALKALINE PHOSPHATASE 86 IU/L (42-121); ANION GAP 11 (8-16); ASPARTATE AMINO TRANSFERASE 63 IU/L (15-46); BILIRUBIN,INDIRECT 0.1 mg/dl (0-1.1); BILIRUBIN,TOTAL 0.1 mg/dl (0.2-1.3); BLOOD UREA NITROGEN 12 mg/dl (7-20); CALCIUM 8.6 mg/dl (8.4-10.2); CARBON DIOXIDE 32 mmol/L (21-31); CHLORIDE 94 mmol/L (97-110); CREATININE 0.59 mg/dl (0.44-1.00); GLUCOSE 114 mg/dl (70-220); LACTATE DEHYDROGENASE 5863 IU/L (313-618); MAGNESIUM 1.9 mg/dl (1.7-2.5); POTASSIUM 3.7 mmol/L (3.5-5.1); SODIUM 133 mmol/L (135-144); URIC ACID 2.3 mg/dl (3.1-7.9)
[2017-08-06] MEDS: METHADONE (1 MG/1 ML PO SYG) PO ×4 (06:46→22:03)
[2017-08-06] MEDS: TRIMETHOBENZAMIDE 100 MG/ML VIAL IM (08:21)
[2017-08-06] MEDS: FAMOTIDINE 20 MG INJ IV (09:41)
[2017-08-06] MEDS: ALLOPURINOL 300 MG TAB PO (09:41)
[2017-08-06] MEDS: POLYETHYLENE GLYCOL 17 GM PACKET PO (09:44)
[2017-08-06] MEDS: ANASTROZOLE 1 MG TAB PO (09:44)
[2017-08-06] MEDS: HEPARIN 5,000 UNIT/0.5 ML VIAL SC ×3 (09:44→20:57)
[2017-08-06] MEDS: SOD CHLORIDE 0.9% 1,000 ML IV (11:00)
[2017-08-06] MEDS: predniSONE 50 MG TAB PO ×2 (13:00→13:48)
[2017-08-06] MEDS: ONDANSETRON 4 MG INJ IV (13:48)
[2017-08-06] MEDS ORDERED: SOD CHLORIDE 0.9% 500 ML IV (15:46)
[2017-08-06] MEDS: SOD CHLORIDE 0.9% 500 ML IV ×2 (17:33→20:48)
[2017-08-07] MEDS: ONDANSETRON 4 MG INJ IV ×2 (01:45→12:52)
[2017-08-07] MEDS: SOD CHLORIDE 0.9% 500 ML IV ×4 (01:46→17:15)
[2017-08-07] MEDS: METOCLOPRAMIDE 10 MG INJ IV (03:58)
[2017-08-07 05:41] LABS: ABNORMAL IP MESSAGE 1; HEMATOCRIT 27.1 % (37.0-47.0); HEMOGLOBIN 8.6 g/dl (12.0-16.0); MEAN CORPUSCULAR HEMOGLOBIN 26.5 pg (29.0-33.0); MEAN CORPUSCULAR HGB CONC 31.7 g/dl (32.0-37.0); MEAN CORPUSCULAR VOLUME 83.4 fl (82.0-101.0); MEAN PLATELET VOLUME 9.9 fl (7.4-10.4); PLATELET COUNT 115 10^3/UL (140-415); RED BLOOD COUNT 3.25 10^6/ul (4.20-5.40); RED CELL DISTRIBUTION WIDTH 18.1 % (11.5-14.5)
[2017-08-07 05:49] LABS: POSITIVE DIFF @See below
[2017-08-07 05:50] LABS: ADD MAN DIFF? YES
[2017-08-07 06:04] LABS: ANION GAP 9 (8-16); BLOOD UREA NITROGEN 12 mg/dl (7-20); CALCIUM 8.6 mg/dl (8.4-10.2); CARBON DIOXIDE 31 mmol/L (21-31); CHLORIDE 99 mmol/L (97-110); CREATININE 0.55 mg/dl (0.44-1.00); GLUCOSE 87 mg/dl (70-220); POTASSIUM 3.4 mmol/L (3.5-5.1); SODIUM 136 mmol/L (135-144); URIC ACID 2.8 mg/dl (3.1-7.9)
[2017-08-07] MEDS: METHADONE (1 MG/1 ML PO SYG) PO ×3 (06:27→22:03)
[2017-08-07 06:59] LABS: ANISOCYTOSIS 2+ (0-0); BAND NEUTROPHILS #M 0.3 10^3/ul (0.0-0.6); BAND NEUTROPHILS % (M) 11 % (0-4); EOSINOPHILS % (M) 1 % (0-7); LYMPHOCYTES % (M) 1 % (15-51); METAMYELOCYTES %M 1 % (0-0); MICROCYTOSIS 2+ (0-0); MONOCYTES % (M) 1 % (0-11); PLATELET ESTIMATE DECREASED; POLYCHROMASIA 1+ (0-0); SEG NEUT #M 2.6 10^3/ul (1.6-7.5); SEGMENTED NEUTROPHILS (M) % 85 % (39-77); SMUDGE%M 11 % (0-0)
[2017-08-07] MEDS: FAMOTIDINE 20 MG INJ IV (08:59)
[2017-08-07] MEDS: ALLOPURINOL 300 MG TAB PO (08:59)
[2017-08-07] MEDS: POLYETHYLENE GLYCOL 17 GM PACKET PO (08:59)
[2017-08-07] MEDS: BALSAM PERU/CASTOR OIL 60 GM TUBE TOP ×2 (08:59→21:59)
[2017-08-07] MEDS: HEPARIN 5,000 UNIT/0.5 ML VIAL SC ×3 (09:02→22:00)
[2017-08-07] MEDS: ANASTROZOLE 1 MG TAB PO (09:02)
[2017-08-07] MEDS ORDERED: POTASSIUM CHLORIDE (SR) 20 MEQ TAB PO (12:41)
[2017-08-07] MEDS: predniSONE 50 MG TAB PO (12:52)
[2017-08-07] MEDS: POTASSIUM CHLORIDE 100 ML IVPB ×2 (14:41→17:14)
[2017-08-07] MEDS: DULOXETINE 30 MG CAP DR PO (21:58)
[2017-08-07] MEDS: DOCUSATE SODIUM 250 MG CAP PO (21:58)
[2017-08-08] MEDS: SOD CHLORIDE 0.9% 500 ML IV ×5 (01:34→12:44)
[2017-08-08 05:49] LABS: ABNORMAL IP MESSAGE 1; HEMATOCRIT 26.6 % (37.0-47.0); HEMOGLOBIN 8.5 g/dl (12.0-16.0); MEAN CORPUSCULAR HEMOGLOBIN 26.3 pg (29.0-33.0); MEAN CORPUSCULAR VOLUME 82.4 fl (82.0-101.0); MEAN PLATELET VOLUME 10.9 fl (7.4-10.4); PLATELET COUNT 115 10^3/UL (140-415); RED BLOOD COUNT 3.23 10^6/ul (4.20-5.40); RED CELL DISTRIBUTION WIDTH 17.2 % (11.5-14.5)
[2017-08-08 05:49] LABS: WHITE BLOOD COUNT 2.4 10^3/ul (4.8-10.8)
[2017-08-08 06:01] LABS: ADD MAN DIFF? YES; POSITIVE DIFF @See below
[2017-08-08] MEDS: METHADONE (1 MG/1 ML PO SYG) PO ×3 (06:03→22:00)
[2017-08-08 06:04] LABS: TRIGLYCERIDES 324 mg/dl (0-149)
[2017-08-08 06:05] LABS: ANION GAP 9 (8-16); BLOOD UREA NITROGEN 12 mg/dl (7-20); CALCIUM 8.7 mg/dl (8.4-10.2); CARBON DIOXIDE 30 mmol/L (21-31); CHLORIDE 98 mmol/L (97-110); CREATININE 0.53 mg/dl (0.44-1.00); GLUCOSE 100 mg/dl (70-220); MAGNESIUM 1.7 mg/dl (1.7-2.5); PHOSPHORUS 4.3 mg/dl (2.5-4.9); POTASSIUM 4.2 mmol/L (3.5-5.1); SODIUM 133 mmol/L (135-144)
[2017-08-08 06:06] LABS: URIC ACID 2.7 mg/dl (3.1-7.9)
[2017-08-08 06:26] LABS: LACTATE DEHYDROGENASE 4848 IU/L (313-618)
[2017-08-08 06:51] LABS: PREALBUMIN 11.7 mg/dl (17.6-36.0)
[2017-08-08 07:25] LABS: ANISOCYTOSIS 1+ (0-0); BAND NEUTROPHILS #M 0.3 10^3/ul (0.0-0.6); BAND NEUTROPHILS % (M) 13 % (0-4); MICROCYTOSIS 1+ (0-0); MONOCYTES % (M) 2 % (0-11); PLATELET ESTIMATE DECREASED; POLYCHROMASIA 1+ (0-0); SEGMENTED NEUTROPHILS (M) % 85 % (39-77); SMUDGE%M 9 % (0-0)
[2017-08-08] MEDS: ANASTROZOLE 1 MG TAB PO (09:00)
[2017-08-08] MEDS: ALLOPURINOL 300 MG TAB PO (09:00)
[2017-08-08] MEDS: POLYETHYLENE GLYCOL 17 GM PACKET PO (09:00)
[2017-08-08] MEDS: ONDANSETRON 4 MG INJ IV ×2 (09:26→18:54)
[2017-08-08] MEDS: FAMOTIDINE 20 MG INJ IV (09:26)
[2017-08-08] MEDS: HEPARIN 5,000 UNIT/0.5 ML VIAL SC ×3 (09:35→21:44)
[2017-08-08] MEDS: BALSAM PERU/CASTOR OIL 60 GM TUBE TOP ×2 (12:45→21:41)
[2017-08-08] MEDS: predniSONE 50 MG TAB PO (13:16)
[2017-08-08] MEDS: ACCU-CHEK XX ×2 (17:00→21:00)
[2017-08-08] MEDS: FILGRASTIM 480 MCG INJ SC (18:27)
[2017-08-08] MEDS: TPN 1,000 ML IV (18:45)
[2017-08-08] MEDS: DULOXETINE 30 MG CAP DR PO (21:41)
[2017-08-08] MEDS: DOCUSATE SODIUM 250 MG CAP PO (21:42)
[2017-08-09] MEDS: ONDANSETRON 4 MG INJ IV ×2 (00:24→17:37)
[2017-08-09] MEDS: ACCU-CHEK XX ×6 (01:00→20:57)
[2017-08-09] MEDS: TPN 1,000 ML IV ×2 (05:18→12:37)
[2017-08-09 05:45] LABS: ABNORMAL IP MESSAGE 1; HEMATOCRIT 27.4 % (37.0-47.0); HEMOGLOBIN 8.8 g/dl (12.0-16.0); MEAN CORPUSCULAR HEMOGLOBIN 26.3 pg (29.0-33.0); MEAN CORPUSCULAR HGB CONC 32.1 g/dl (32.0-37.0); MEAN PLATELET VOLUME 10.9 fl (7.4-10.4); PLATELET COUNT 120 10^3/UL (140-415); RED BLOOD COUNT 3.34 10^6/ul (4.20-5.40)
[2017-08-09 05:45] LABS: WHITE BLOOD COUNT 6.8 10^3/ul (4.8-10.8)
[2017-08-09] MEDS: METHADONE (1 MG/1 ML PO SYG) PO ×3 (06:00→21:45)
[2017-08-09] MEDS ORDERED: GLUCOSE GEL 15 GRAM TUBE PO ×2 (06:00)
[2017-08-09] MEDS ORDERED: DEXTROSE 50% 50 ML SYRINGE IV ×2 (06:00)
[2017-08-09] MEDS ORDERED: GLUCOSE GEL 15 GRAM TUBE BUCCAL (06:00)
[2017-08-09] MEDS ORDERED: GLUCAGON 1 MG INJ IM (06:00)
[2017-08-09 06:14] LABS: ADD MAN DIFF? YES; POSITIVE DIFF @See below
[2017-08-09 06:15] LABS: ANION GAP 6 (8-16); BLOOD UREA NITROGEN 18 mg/dl (7-20); CALCIUM 8.1 mg/dl (8.4-10.2); CARBON DIOXIDE 34 mmol/L (21-31); CHLORIDE 95 mmol/L (97-110); CREATININE 0.48 mg/dl (0.44-1.00); GLUCOSE 180 mg/dl (70-220); MAGNESIUM 1.7 mg/dl (1.7-2.5); PHOSPHORUS 3.7 mg/dl (2.5-4.9); POTASSIUM 4.1 mmol/L (3.5-5.1); SODIUM 131 mmol/L (135-144)
[2017-08-09 07:44] LABS: ANISOCYTOSIS 1+ (0-0); BAND NEUTROPHILS #M 1.1 10^3/ul (0.0-0.6); BAND NEUTROPHILS % (M) 17 % (0-4); MICROCYTOSIS 1+ (0-0); PLATELET ESTIMATE DECREASED; POLYCHROMASIA 1+ (0-0); SEG NEUT #M 5.7 10^3/ul (1.6-7.5); SEGMENTED NEUTROPHILS (M) % 83 % (39-77); SMUDGE%M 6 % (0-0)
[2017-08-09 08:26] LABS: URIC ACID 3.3 mg/dl (3.1-7.9)
[2017-08-09] MEDS: FAMOTIDINE 20 MG INJ IV (09:20)
[2017-08-09] MEDS: ALLOPURINOL 300 MG TAB PO (09:20)
[2017-08-09] MEDS: POLYETHYLENE GLYCOL 17 GM PACKET PO (09:20)
[2017-08-09] MEDS: INSULIN GLARGINE [LANtus] 3 ML PEN SC (09:24)
[2017-08-09] MEDS: INSULIN ASPART [NOVOLOG] 3 ML PEN SC ×4 (09:25→21:00)
[2017-08-09] MEDS: ANASTROZOLE 1 MG TAB PO (09:25)
[2017-08-09] MEDS: HEPARIN 5,000 UNIT/0.5 ML VIAL SC ×3 (09:26→20:52)
[2017-08-09] MEDS: BALSAM PERU/CASTOR OIL 60 GM TUBE TOP ×2 (09:27→20:57)
[2017-08-09] MEDS: FILGRASTIM 480 MCG INJ SC (17:39)
[2017-08-09] MEDS: METOCLOPRAMIDE 10 MG INJ IV (20:50)
[2017-08-09] MEDS: DULOXETINE 30 MG CAP DR PO (20:53)
[2017-08-09] MEDS: DOCUSATE SODIUM 250 MG CAP PO (20:53)
[2017-08-10] MEDS: ACCU-CHEK XX ×6 (01:00→20:36)
[2017-08-10] MEDS: INSULIN ASPART [NOVOLOG] 3 ML PEN SC ×6 (01:00→20:35)
[2017-08-10] MEDS: TPN 1,000 ML IV ×3 (04:00→22:08)
[2017-08-10 05:24] LABS: WHITE BLOOD COUNT 2.9 10^3/ul (4.8-10.8)
[2017-08-10 05:24] LABS: ABNORMAL IP MESSAGE 1; HEMATOCRIT 25.7 % (37.0-47.0); HEMOGLOBIN 8.4 g/dl (12.0-16.0); MEAN CORPUSCULAR HEMOGLOBIN 26.8 pg (29.0-33.0); MEAN CORPUSCULAR HGB CONC 32.7 g/dl (32.0-37.0); MEAN CORPUSCULAR VOLUME 82.1 fl (82.0-101.0); MEAN PLATELET VOLUME 10.2 fl (7.4-10.4); PLATELET COUNT 108 10^3/UL (140-415); RED BLOOD COUNT 3.13 10^6/ul (4.20-5.40); RED CELL DISTRIBUTION WIDTH 17.7 % (11.5-14.5)
[2017-08-10 05:33] LABS: POSITIVE DIFF @See below
[2017-08-10 05:34] LABS: ADD MAN DIFF? YES
[2017-08-10 05:39] LABS: MAGNESIUM 1.7 mg/dl (1.7-2.5)
[2017-08-10 05:39] LABS: PHOSPHORUS 3.1 mg/dl (2.5-4.9)
[2017-08-10 05:53] LABS: ALANINE AMINOTRANSFERASE 25 IU/L (13-69); ALBUMIN 2.3 g/dl (3.3-4.9); ALBUMIN/GLOBULIN RATIO 1.09; ALKALINE PHOSPHATASE 58 IU/L (42-121); ANION GAP 7 (8-16); ASPARTATE AMINO TRANSFERASE 34 IU/L (15-46); BILIRUBIN,INDIRECT 0.1 mg/dl (0-1.1); BILIRUBIN,TOTAL 0.1 mg/dl (0.2-1.3); BLOOD UREA NITROGEN 20 mg/dl (7-20); CARBON DIOXIDE 34 mmol/L (21-31); CHLORIDE 95 mmol/L (97-110); CREATININE 0.49 mg/dl (0.44-1.00); GLUCOSE 114 mg/dl (70-220); POTASSIUM 4.1 mmol/L (3.5-5.1); SODIUM 132 mmol/L (135-144); TOTAL PROTEIN 4.4 g/dl (6.1-8.1); URIC ACID 2.5 mg/dl (3.1-7.9)
[2017-08-10] MEDS: METHADONE (1 MG/1 ML PO SYG) PO ×3 (06:07→21:07)
[2017-08-10] MEDS: ONDANSETRON 4 MG INJ IV ×2 (09:29→17:46)
[2017-08-10] MEDS: ANASTROZOLE 1 MG TAB PO (09:30)
[2017-08-10] MEDS: FAMOTIDINE 20 MG INJ IV (09:30)
[2017-08-10] MEDS: POLYETHYLENE GLYCOL 17 GM PACKET PO (09:30)
[2017-08-10] MEDS: ALLOPURINOL 300 MG TAB PO (09:30)
[2017-08-10] MEDS: HEPARIN 5,000 UNIT/0.5 ML VIAL SC ×3 (09:31→20:35)
[2017-08-10] MEDS: BALSAM PERU/CASTOR OIL 60 GM TUBE TOP ×2 (09:36→20:36)
[2017-08-10] MEDS: INSULIN GLARGINE [LANtus] 3 ML PEN SC (09:36)
[2017-08-10 09:40] LABS: ANISOCYTOSIS 2+ (0-0); BAND NEUTROPHILS #M 0.3 10^3/ul (0.0-0.6); BAND NEUTROPHILS % (M) 13 % (0-4); EOSINOPHILS % (M) 3 % (0-7); LYMPHOCYTES #M 0.1 10^3/ul (0.8-2.9); LYMPHOCYTES % (M) 4 % (15-51); MICROCYTOSIS 2+ (0-0); PLATELET ESTIMATE DECREASED; POIKILOCYTOSIS 1+ (0-0); POLYCHROMASIA 1+ (0-0); SEG NEUT #M 2.3 10^3/ul (1.6-7.5); SEGMENTED NEUTROPHILS (M) % 80 % (39-77); SMUDGE%M 10 % (0-0)
[2017-08-10] MEDS: METOCLOPRAMIDE 10 MG INJ IV ×2 (13:18→22:07)
[2017-08-10] MEDS: FILGRASTIM 480 MCG INJ SC (17:39)
[2017-08-10] MEDS: DOCUSATE SODIUM 250 MG CAP PO (20:35)
[2017-08-10] MEDS: DULOXETINE 30 MG CAP DR PO (20:35)
[2017-08-11] MEDS: INSULIN ASPART [NOVOLOG] 3 ML PEN SC ×6 (01:00→21:00)
[2017-08-11] MEDS: ACCU-CHEK XX ×6 (02:30→21:14)
[2017-08-11] MEDS: METHADONE (1 MG/1 ML PO SYG) PO ×3 (05:10→21:07)
[2017-08-11] MEDS: ONDANSETRON 4 MG INJ IV ×2 (05:10→16:10)
[2017-08-11 05:19] LABS: ABNORMAL IP MESSAGE 1; HEMATOCRIT 24.9 % (37.0-47.0); HEMOGLOBIN 7.9 g/dl (12.0-16.0); MEAN CORPUSCULAR HEMOGLOBIN 26.2 pg (29.0-33.0); MEAN CORPUSCULAR HGB CONC 31.7 g/dl (32.0-37.0); MEAN CORPUSCULAR VOLUME 82.5 fl (82.0-101.0); MEAN PLATELET VOLUME 10.2 fl (7.4-10.4); PLATELET COUNT 83 10^3/UL (140-415); RED BLOOD COUNT 3.02 10^6/ul (4.20-5.40); RED CELL DISTRIBUTION WIDTH 17.8 % (11.5-14.5)
[2017-08-11 05:19] LABS: WHITE BLOOD COUNT 1.6 10^3/ul (4.8-10.8)
[2017-08-11 05:20] LABS: POSITIVE DIFF @See below
[2017-08-11 05:21] LABS: ADD MAN DIFF? YES
[2017-08-11 05:57] LABS: ANION GAP 8 (8-16); BLOOD UREA NITROGEN 21 mg/dl (7-20); CALCIUM 7.9 mg/dl (8.4-10.2); CARBON DIOXIDE 33 mmol/L (21-31); CHLORIDE 95 mmol/L (97-110); CREATININE 0.47 mg/dl (0.44-1.00); GLUCOSE 109 mg/dl (70-220); MAGNESIUM 1.7 mg/dl (1.7-2.5); PHOSPHORUS 3.8 mg/dl (2.5-4.9); SODIUM 132 mmol/L (135-144); TRIGLYCERIDES 118 mg/dl (0-149)
[2017-08-11] MEDS: BALSAM PERU/CASTOR OIL 60 GM TUBE TOP ×2 (08:33→21:15)
[2017-08-11] MEDS: FAMOTIDINE 20 MG INJ IV (08:35)
[2017-08-11] MEDS: POLYETHYLENE GLYCOL 17 GM PACKET PO (08:36)
[2017-08-11] MEDS: ALLOPURINOL 300 MG TAB PO (08:36)
[2017-08-11] MEDS: HEPARIN 5,000 UNIT/0.5 ML VIAL SC ×3 (08:37→21:13)
[2017-08-11] MEDS: INSULIN GLARGINE [LANtus] 3 ML PEN SC (08:38)
[2017-08-11] MEDS: ANASTROZOLE 1 MG TAB PO (08:39)
[2017-08-11] MEDS: METOCLOPRAMIDE 10 MG INJ IV ×2 (08:47→21:08)
[2017-08-11 09:38] LABS: ANISOCYTOSIS 2+ (0-0); BAND NEUTROPHILS #M 0.1 10^3/ul (0.0-0.6); BAND NEUTROPHILS % (M) 11 % (0-4); EOSINOPHILS % (M) 6 % (0-7); GIANT THROMBO% (M) 1 % (0-0); LYMPHOCYTES #M 0.1 10^3/ul (0.8-2.9); LYMPHOCYTES % (M) 10 % (15-51); MICROCYTOSIS 2+ (0-0); MONOCYTES % (M) 1 % (0-11); PLATELET ESTIMATE DECREASED; POIKILOCYTOSIS 1+ (0-0); POLYCHROMASIA 1+ (0-0); REACTIVE LYMPHOCYTES% (M) 6 % (0-0); SEG NEUT #M 1.1 10^3/ul (1.6-7.5); SEGMENTED NEUTROPHILS (M) % 66 % (39-77); SMUDGE%M 6 % (0-0)
[2017-08-11] MEDS: TPN 1,000 ML IV ×2 (14:55)
[2017-08-11 16:45] LABS: ABNORMAL IP MESSAGE 1; HEMATOCRIT 24.4 % (37.0-47.0); HEMOGLOBIN 7.9 g/dl (12.0-16.0); MEAN CORPUSCULAR HEMOGLOBIN 26.6 pg (29.0-33.0); MEAN CORPUSCULAR HGB CONC 32.4 g/dl (32.0-37.0); MEAN CORPUSCULAR VOLUME 82.2 fl (82.0-101.0); MEAN PLATELET VOLUME 10.5 fl (7.4-10.4); PLATELET COUNT 85 10^3/UL (140-415); RED BLOOD COUNT 2.97 10^6/ul (4.20-5.40); RED CELL DISTRIBUTION WIDTH 17.9 % (11.5-14.5)
[2017-08-11 16:45] LABS: WHITE BLOOD COUNT 0.9 10^3/ul (4.8-10.8)
[2017-08-11 16:58] LABS: ADD MAN DIFF? YES; POSITIVE DIFF @See below
[2017-08-11] MEDS: FILGRASTIM 480 MCG INJ SC (17:02)
[2017-08-11 19:28] LABS: BAND NEUTROPHILS % (M) 6 % (0-4); BASOPHILS % (M) 2 % (0-2); EOSINOPHILS % (M) 4 % (0-7); GIANT THROMBO% (M) 9 % (0-0); HYPOCHROMASIA 1+ (0-0); LYMPHOCYTES % (M) 11 % (15-51); MONOCYTES % (M) 3 % (0-11); PLATELET ESTIMATE DECREASED; REACTIVE LYMPHOCYTES% (M) 1 % (0-0); SEG NEUT #M 0.7 10^3/ul (1.6-7.5); SEGMENTED NEUTROPHILS (M) % 73 % (39-77); SMUDGE%M 5 % (0-0)
[2017-08-11] MEDS: DULOXETINE 30 MG CAP DR PO (21:07)
[2017-08-11] MEDS: DOCUSATE SODIUM 250 MG CAP PO (21:07)
[2017-08-12] MEDS: ACCU-CHEK XX ×6 (01:00→20:51)
[2017-08-12] MEDS: INSULIN ASPART [NOVOLOG] 3 ML PEN SC ×6 (01:00→20:51)
[2017-08-12 04:47] LABS: ABNORMAL IP MESSAGE 1; HEMATOCRIT 22.9 % (37.0-47.0); HEMOGLOBIN 7.3 g/dl (12.0-16.0); MEAN CORPUSCULAR HEMOGLOBIN 26.1 pg (29.0-33.0); MEAN CORPUSCULAR HGB CONC 31.9 g/dl (32.0-37.0); MEAN CORPUSCULAR VOLUME 81.8 fl (82.0-101.0); MEAN PLATELET VOLUME 10.7 fl (7.4-10.4); PLATELET COUNT 71 10^3/UL (140-415)
[2017-08-12 04:47] LABS: WHITE BLOOD COUNT 0.6 10^3/ul (4.8-10.8)
[2017-08-12 04:50] LABS: ADD MAN DIFF? YES; POSITIVE DIFF @See below
[2017-08-12 05:06] LABS: ANION GAP 8 (8-16); BLOOD UREA NITROGEN 19 mg/dl (7-20); CALCIUM 8.2 mg/dl (8.4-10.2); CARBON DIOXIDE 32 mmol/L (21-31); CHLORIDE 96 mmol/L (97-110); CREATININE 0.41 mg/dl (0.44-1.00); GLUCOSE 101 mg/dl (70-220); MAGNESIUM 1.6 mg/dl (1.7-2.5); PHOSPHORUS 4.2 mg/dl (2.5-4.9); POTASSIUM 4.1 mmol/L (3.5-5.1); SODIUM 132 mmol/L (135-144)
[2017-08-12] MEDS: TPN 1,000 ML IV ×2 (05:53→20:33)
[2017-08-12] MEDS: METHADONE (1 MG/1 ML PO SYG) PO ×3 (05:57→22:09)
[2017-08-12] MEDS: ONDANSETRON 4 MG INJ IV ×3 (05:57→23:13)
[2017-08-12] MEDS: INSULIN GLARGINE [LANtus] 3 ML PEN SC ×2 (08:00→09:12)
[2017-08-12] MEDS: METOCLOPRAMIDE 10 MG INJ IV (08:58)
[2017-08-12] MEDS: FAMOTIDINE 20 MG INJ IV (08:59)
[2017-08-12] MEDS: ALLOPURINOL 300 MG TAB PO (08:59)
[2017-08-12] MEDS: POLYETHYLENE GLYCOL 17 GM PACKET PO (08:59)
[2017-08-12] MEDS: HEPARIN 5,000 UNIT/0.5 ML VIAL SC ×2 (09:12→13:33)
[2017-08-12] MEDS: ANASTROZOLE 1 MG TAB PO (09:13)
[2017-08-12 09:15] LABS: ANISOCYTOSIS 2+ (0-0); BAND NEUTROPHILS % (M) 2 % (0-4); BASOPHILS % (M) 2 % (0-2); EOSINOPHILS % (M) 4 % (0-7); GIANT THROMBO% (M) 2 % (0-0); HYPOCHROMASIA 1+ (0-0); LYMPHOCYTES #M 0.2 10^3/ul (0.8-2.9); LYMPHOCYTES % (M) 36 % (15-51); MICROCYTOSIS 2+ (0-0); MONOCYTES % (M) 7 % (0-11); PLATELET ESTIMATE DECREASED; POIKILOCYTOSIS 2+ (0-0); POLYCHROMASIA 3+ (0-0); REACTIVE LYMPHOCYTES% (M) 2 % (0-0); SEG NEUT #M 0.3 10^3/ul (1.6-7.5); SEGMENTED NEUTROPHILS (M) % 46 % (39-77); SMUDGE%M 4 % (0-0)
[2017-08-12] MEDS: BALSAM PERU/CASTOR OIL 60 GM TUBE TOP ×2 (09:16→20:34)
[2017-08-12 11:21] LABS: WHITE BLOOD COUNT 0.5 10^3/ul (4.8-10.8)
[2017-08-12 11:21] LABS: ABNORMAL IP MESSAGE 1; HEMATOCRIT 22.7 % (37.0-47.0); HEMOGLOBIN 7.2 g/dl (12.0-16.0); MEAN CORPUSCULAR HEMOGLOBIN 26.1 pg (29.0-33.0); MEAN CORPUSCULAR HGB CONC 31.7 g/dl (32.0-37.0); MEAN CORPUSCULAR VOLUME 82.2 fl (82.0-101.0); MEAN PLATELET VOLUME 10.5 fl (7.4-10.4); PLATELET COUNT 71 10^3/UL (140-415); RED BLOOD COUNT 2.76 10^6/ul (4.20-5.40); RED CELL DISTRIBUTION WIDTH 18.6 % (11.5-14.5)
[2017-08-12 11:25] LABS: POSITIVE DIFF @See below
[2017-08-12 11:26] LABS: ADD MAN DIFF? YES
[2017-08-12 12:21] LABS: ANISOCYTOSIS 2+ (0-0); BAND NEUTROPHILS % (M) 10 % (0-4); EOSINOPHILS % (M) 13 % (0-7); GIANT THROMBO% (M) 8 % (0-0); HYPOCHROMASIA 1+ (0-0); LYMPHOCYTES #M 0.1 10^3/ul (0.8-2.9); LYMPHOCYTES % (M) 20 % (15-51); METAMYELOCYTES %M 1 % (0-0); MICROCYTOSIS 2+ (0-0); MONOCYTES % (M) 3 % (0-11); PLATELET ESTIMATE DECREASED; POIKILOCYTOSIS 1+ (0-0); POLYCHROMASIA 1+ (0-0); PROMYELOCYTES % (M) 1 % (0-0); SEG NEUT #M 0.3 10^3/ul (1.6-7.5); SEGMENTED NEUTROPHILS (M) % 52 % (39-77); SMUDGE%M 4 % (0-0)
[2017-08-12 14:04] LABS: IMMEDIATE SPIN CROSSMATCH 1 3
[2017-08-12] MEDS: FILGRASTIM 480 MCG INJ SC (17:26)
[2017-08-12] MEDS: ACETAMINOPHEN 325 MG TAB PO (18:01)
[2017-08-12] MEDS: DOCUSATE SODIUM 250 MG CAP PO (20:33)
[2017-08-12] MEDS: DULOXETINE 30 MG CAP DR PO (20:33)
[2017-08-13] MEDS: INSULIN ASPART [NOVOLOG] 3 ML PEN SC ×6 (01:00→21:00)
[2017-08-13] MEDS: ACCU-CHEK XX ×6 (01:07→21:00)
[2017-08-13 04:54] LABS: WHITE BLOOD COUNT 0.6 10^3/ul (4.8-10.8)
[2017-08-13 04:54] LABS: ABNORMAL IP MESSAGE 1; HEMATOCRIT 23.2 % (37.0-47.0); HEMOGLOBIN 7.8 g/dl (12.0-16.0); MEAN CORPUSCULAR HEMOGLOBIN 27.5 pg (29.0-33.0); MEAN CORPUSCULAR HGB CONC 33.6 g/dl (32.0-37.0); MEAN CORPUSCULAR VOLUME 81.7 fl (82.0-101.0); MEAN PLATELET VOLUME 11.2 fl (7.4-10.4); PLATELET COUNT 64 10^3/UL (140-415); RED BLOOD COUNT 2.84 10^6/ul (4.20-5.40); RED CELL DISTRIBUTION WIDTH 17.4 % (11.5-14.5)
[2017-08-13 05:10] LABS: ANION GAP 6 (8-16); BLOOD UREA NITROGEN 19 mg/dl (7-20); CALCIUM 7.9 mg/dl (8.4-10.2); CARBON DIOXIDE 33 mmol/L (21-31); CHLORIDE 95 mmol/L (97-110); CREATININE 0.47 mg/dl (0.44-1.00); GLUCOSE 101 mg/dl (70-220); MAGNESIUM 1.7 mg/dl (1.7-2.5); PHOSPHORUS 3.9 mg/dl (2.5-4.9); POSITIVE DIFF @See below; POTASSIUM 4.2 mmol/L (3.5-5.1); SODIUM 130 mmol/L (135-144)
[2017-08-13 05:11] LABS: ADD MAN DIFF? YES
[2017-08-13] MEDS: METHADONE (1 MG/1 ML PO SYG) PO ×3 (06:07→21:42)
[2017-08-13 07:09] LABS: ANISOCYTOSIS 2+ (0-0); BAND NEUTROPHILS #M 0.1 10^3/ul (0.0-0.6); BAND NEUTROPHILS % (M) 17 % (0-4); BASOPHILS % (M) 6 % (0-2); EOSINOPHILS % (M) 4 % (0-7); ERYTHROBLAST% (NRBC) (M) 3 % (0-0); GIANT THROMBO% (M) 2 % (0-0); LYMPHOCYTES #M 0.1 10^3/ul (0.8-2.9); LYMPHOCYTES % (M) 30 % (15-51); MICROCYTOSIS 2+ (0-0); MONOCYTE #M 0.1 10^3/ul (0.3-0.9); MONOCYTES % (M) 18 % (0-11); PLATELET ESTIMATE DECREASED; POIKILOCYTOSIS 1+ (0-0); POLYCHROMASIA 1+ (0-0); REACTIVE LYMPHOCYTES% (M) 6 % (0-0); SEG NEUT #M 0.1 10^3/ul (1.6-7.5); SEGMENTED NEUTROPHILS (M) % 16 % (39-77); SMUDGE%M 6 % (0-0)
[2017-08-13] MEDS: FAMOTIDINE 20 MG INJ IV (08:28)
[2017-08-13] MEDS: ALLOPURINOL 300 MG TAB PO (08:28)
[2017-08-13] MEDS: POLYETHYLENE GLYCOL 17 GM PACKET PO (08:28)
[2017-08-13] MEDS: ONDANSETRON 4 MG INJ IV ×2 (08:29→21:59)
[2017-08-13] MEDS: BALSAM PERU/CASTOR OIL 60 GM TUBE TOP ×2 (08:29→21:15)
[2017-08-13] MEDS: ANASTROZOLE 1 MG TAB PO (08:30)
[2017-08-13] MEDS: TPN 1,000 ML IV ×2 (09:24→14:31)
[2017-08-13] MEDS: HYDROmorphONE 2 MG TAB PO (17:13)
[2017-08-13] MEDS: FILGRASTIM 480 MCG INJ SC (17:16)
[2017-08-13] MEDS: ACETAMINOPHEN 325 MG TAB PO (18:48)
[2017-08-13] MEDS: DOCUSATE SODIUM 250 MG CAP PO (21:19)
[2017-08-13] MEDS: DULOXETINE 30 MG CAP DR PO (21:19)
[2017-08-14] MEDS: INSULIN ASPART [NOVOLOG] 3 ML PEN SC ×6 (01:00→20:44)
[2017-08-14] MEDS: ACCU-CHEK XX ×6 (01:00→21:17)
[2017-08-14] MEDS: ALBUTEROL/IPRATROPIUM (NEB) 3 ML AMP HHN (02:26)
[2017-08-14] MEDS: morphine 2 MG INJ IV (02:49)
[2017-08-14 03:43] LABS: TROPONIN-I < 0.012 ng/ml (0.00-0.12)
[2017-08-14 05:43] LABS: HEMATOCRIT 23.6 % (37.0-47.0)
[2017-08-14 05:43] LABS: HEMOGLOBIN 7.7 g/dl (12.0-16.0)
[2017-08-14 05:47] LABS: ABNORMAL IP MESSAGE 1; HEMOGLOBIN 7.5 g/dl (12.0-16.0); MEAN CORPUSCULAR HGB CONC 32.6 g/dl (32.0-37.0); MEAN CORPUSCULAR VOLUME 85.8 fl (82.0-101.0); PLATELET COUNT 63 10^3/UL (140-415); RED BLOOD COUNT 2.68 10^6/ul (4.20-5.40)
[2017-08-14] MEDS: METHADONE (1 MG/1 ML PO SYG) PO ×3 (05:48→21:54)
[2017-08-14] MEDS: TPN 1,000 ML IV (05:49)
[2017-08-14 06:36] LABS: POSITIVE DIFF @See below
[2017-08-14 06:37] LABS: ADD MAN DIFF? YES
[2017-08-14 08:02] LABS: ANISOCYTOSIS 2+ (0-0); BAND NEUTROPHILS #M 0.4 10^3/ul (0.0-0.6); BAND NEUTROPHILS % (M) 22 % (0-4); EOSINOPHILS % (M) 2 % (0-7); GIANT THROMBO% (M) 2 % (0-0); HYPOCHROMASIA 2+ (0-0); LYMPHOCYTES #M 0.3 10^3/ul (0.8-2.9); LYMPHOCYTES % (M) 15 % (15-51); MICROCYTOSIS 2+ (0-0); MONOCYTES % (M) 3 % (0-11); PLATELET ESTIMATE DECREASED; POIKILOCYTOSIS 1+ (0-0); POLYCHROMASIA 1+ (0-0); REACTIVE LYMPHOCYTES% (M) 1 % (0-0); SEG NEUT #M 1.1 10^3/ul (1.6-7.5); SEGMENTED NEUTROPHILS (M) % 55 % (39-77); SMUDGE%M 3 % (0-0)
[2017-08-14] MEDS: ONDANSETRON 4 MG INJ IV ×2 (08:03→21:54)
[2017-08-14 09:27] LABS: ANION GAP 7 (8-16); BLOOD UREA NITROGEN 16 mg/dl (7-20); CALCIUM 7.9 mg/dl (8.4-10.2); CARBON DIOXIDE 30 mmol/L (21-31); CHLORIDE 95 mmol/L (97-110); CREATININE 0.45 mg/dl (0.44-1.00); GLUCOSE 116 mg/dl (70-220); MAGNESIUM 1.6 mg/dl (1.7-2.5); PHOSPHORUS 3.4 mg/dl (2.5-4.9); POTASSIUM 3.7 mmol/L (3.5-5.1); SODIUM 128 mmol/L (135-144)
[2017-08-14] MEDS: POLYETHYLENE GLYCOL 17 GM PACKET PO (09:29)
[2017-08-14] MEDS: ALLOPURINOL 300 MG TAB PO (09:29)
[2017-08-14] MEDS: MEGESTROL (40 MG/ML) 10ML CUP PO ×2 (09:29→20:39)
[2017-08-14] MEDS: BALSAM PERU/CASTOR OIL 60 GM TUBE TOP ×2 (09:29→20:44)
[2017-08-14] MEDS: FAMOTIDINE 20 MG INJ IV (09:30)
[2017-08-14] MEDS: ANASTROZOLE 1 MG TAB PO (09:43)
[2017-08-14] MEDS: INSULIN GLARGINE [LANtus] 3 ML PEN SC (09:44)
[2017-08-14 10:39] LABS: TROPONIN-I < 0.012 ng/ml (0.00-0.12)
[2017-08-14] MEDS ORDERED: VITAMIN A & D 5 GM OINT PACKET TOP (11:31)
[2017-08-14] MEDS: MAGNESIUM SULFATE 1 GM/D5W 100 ML IVPB (14:42)
[2017-08-14] MEDS: ACETAMINOPHEN 325 MG TAB PO (14:42)
[2017-08-14] MEDS ORDERED: DIPHENHYDRAMINE 25 MG CAP PO (17:00)
[2017-08-14] MEDS: CEFTRIAXONE 1 GM/50 ML (PMX) 50 ML IVPB (17:49)
[2017-08-14] MEDS: FILGRASTIM 480 MCG INJ SC (17:52)
[2017-08-14] MEDS: DULOXETINE 30 MG CAP DR PO (20:40)
[2017-08-14] MEDS: DOCUSATE SODIUM 250 MG CAP PO (20:40)
[2017-08-15] MEDS: TPN 1,000 ML IV ×2 (00:31→15:19)
[2017-08-15] MEDS: ACCU-CHEK XX ×6 (00:41→21:22)
[2017-08-15] MEDS: INSULIN ASPART [NOVOLOG] 3 ML PEN SC ×6 (00:41→21:00)
[2017-08-15] MEDS: METHADONE (1 MG/1 ML PO SYG) PO ×3 (05:09→22:16)
[2017-08-15 05:13] LABS: ABNORMAL IP MESSAGE 1; HEMATOCRIT 27.2 % (37.0-47.0); HEMOGLOBIN 9.4 g/dl (12.0-16.0); MEAN CORPUSCULAR HEMOGLOBIN 27.9 pg (29.0-33.0); MEAN CORPUSCULAR HGB CONC 34.6 g/dl (32.0-37.0); MEAN CORPUSCULAR VOLUME 80.7 fl (82.0-101.0); MEAN PLATELET VOLUME 10.9 fl (7.4-10.4); PLATELET COUNT 90 10^3/UL (140-415); RED BLOOD COUNT 3.37 10^6/ul (4.20-5.40); RED CELL DISTRIBUTION WIDTH 16.9 % (11.5-14.5)
[2017-08-15 05:13] LABS: WHITE BLOOD COUNT 5.6 10^3/ul (4.8-10.8)
[2017-08-15 05:15] LABS: POSITIVE DIFF @See below
[2017-08-15 05:16] LABS: ADD MAN DIFF? YES
[2017-08-15 05:38] LABS: ALANINE AMINOTRANSFERASE 28 IU/L (13-69); ALBUMIN 2.3 g/dl (3.3-4.9); ALBUMIN/GLOBULIN RATIO 0.92; ALKALINE PHOSPHATASE 154 IU/L (42-121); ANION GAP 9 (8-16); ASPARTATE AMINO TRANSFERASE 43 IU/L (15-46); BILIRUBIN,INDIRECT 0.1 mg/dl (0-1.1); BILIRUBIN,TOTAL 0.1 mg/dl (0.2-1.3); BLOOD UREA NITROGEN 14 mg/dl (7-20); CALCIUM 7.7 mg/dl (8.4-10.2); CARBON DIOXIDE 28 mmol/L (21-31); CHLORIDE 95 mmol/L (97-110); CREATININE 0.43 mg/dl (0.44-1.00); GLUCOSE 100 mg/dl (70-220); SODIUM 128 mmol/L (135-144); TOTAL PROTEIN 4.8 g/dl (6.1-8.1); URIC ACID 1.7 mg/dl (3.1-7.9)
[2017-08-15 05:44] LABS: ANION GAP 9 (8-16); BLOOD UREA NITROGEN 14 mg/dl (7-20); CALCIUM 7.7 mg/dl (8.4-10.2); CARBON DIOXIDE 27 mmol/L (21-31); CHLORIDE 95 mmol/L (97-110); CREATININE 0.43 mg/dl (0.44-1.00); GLUCOSE 99 mg/dl (70-220); MAGNESIUM 1.8 mg/dl (1.7-2.5); PHOSPHORUS 3.2 mg/dl (2.5-4.9); SODIUM 127 mmol/L (135-144)
[2017-08-15 05:48] LABS: LACTATE DEHYDROGENASE 2861 IU/L (313-618)
[2017-08-15 07:48] LABS: ANISOCYTOSIS 1+ (0-0); BAND NEUTROPHILS #M 1.6 10^3/ul (0.0-0.6); BAND NEUTROPHILS % (M) 30 % (0-4); GIANT THROMBO% (M) 8 % (0-0); LYMPHOCYTES #M 0.3 10^3/ul (0.8-2.9); LYMPHOCYTES % (M) 6 % (15-51); MONOCYTE #M 0.1 10^3/ul (0.3-0.9); MONOCYTES % (M) 3 % (0-11); PLATELET ESTIMATE DECREASED; POLYCHROMASIA 2+ (0-0); SEG NEUT #M 3.5 10^3/ul (1.6-7.5); SEGMENTED NEUTROPHILS (M) % 61 % (39-77); SMUDGE%M 9 % (0-0)
[2017-08-15] MEDS: BALSAM PERU/CASTOR OIL 60 GM TUBE TOP ×2 (09:05→21:22)
[2017-08-15] MEDS: MEGESTROL (40 MG/ML) 10ML CUP PO ×2 (09:06→21:03)
[2017-08-15] MEDS: FAMOTIDINE 20 MG INJ IV (09:06)
[2017-08-15] MEDS: ALLOPURINOL 300 MG TAB PO (09:06)
[2017-08-15] MEDS: POLYETHYLENE GLYCOL 17 GM PACKET PO (09:06)
[2017-08-15] MEDS: INSULIN GLARGINE [LANtus] 3 ML PEN SC (09:07)
[2017-08-15] MEDS: ANASTROZOLE 1 MG TAB PO (09:08)
[2017-08-15] MEDS: ONDANSETRON 4 MG INJ IV ×2 (09:14→21:03)
[2017-08-15] MEDS: CEFTRIAXONE 1 GM/50 ML (PMX) 50 ML IVPB (16:46)
[2017-08-15] MEDS: FILGRASTIM 480 MCG INJ SC (16:46)
[2017-08-15] MEDS: DULOXETINE 30 MG CAP DR PO (21:01)
[2017-08-15] MEDS: DOCUSATE SODIUM 250 MG CAP PO (21:03)
[2017-08-16] MEDS: INSULIN ASPART [NOVOLOG] 3 ML PEN SC ×6 (01:00→21:00)
[2017-08-16] MEDS: ACCU-CHEK XX ×6 (01:22→21:19)
[2017-08-16] MEDS: METHADONE (1 MG/1 ML PO SYG) PO ×3 (05:34→22:41)
[2017-08-16] MEDS: HYDROmorphONE 2 MG TAB PO (06:53)
[2017-08-16] MEDS: TPN 1,000 ML IV ×2 (08:36→23:30)
[2017-08-16] MEDS: METOCLOPRAMIDE 10 MG INJ IV (08:36)
[2017-08-16] MEDS: MEGESTROL (40 MG/ML) 10ML CUP PO ×2 (08:36→21:17)
[2017-08-16] MEDS: FAMOTIDINE 20 MG INJ IV (08:36)
[2017-08-16] MEDS: ALLOPURINOL 300 MG TAB PO (08:37)
[2017-08-16] MEDS: POLYETHYLENE GLYCOL 17 GM PACKET PO (08:37)
[2017-08-16] MEDS: ANASTROZOLE 1 MG TAB PO (08:39)
[2017-08-16] MEDS: INSULIN GLARGINE [LANtus] 3 ML PEN SC (08:39)
[2017-08-16] MEDS: BALSAM PERU/CASTOR OIL 60 GM TUBE TOP ×2 (09:00→21:20)
[2017-08-16] MEDS: ONDANSETRON 4 MG INJ IV (12:57)
[2017-08-16 13:49] LABS: ANION GAP 11 (8-16); BLOOD UREA NITROGEN 14 mg/dl (7-20); CALCIUM 8.1 mg/dl (8.4-10.2); CARBON DIOXIDE 25 mmol/L (21-31); CHLORIDE 98 mmol/L (97-110); CREATININE 0.41 mg/dl (0.44-1.00); GLUCOSE 104 mg/dl (70-220); MAGNESIUM 1.7 mg/dl (1.7-2.5); PHOSPHORUS 3.8 mg/dl (2.5-4.9); POTASSIUM 4.2 mmol/L (3.5-5.1); SODIUM 130 mmol/L (135-144); TRIGLYCERIDES 133 mg/dl (0-149)
[2017-08-16] MEDS: CEFTRIAXONE 1 GM/50 ML (PMX) 50 ML IVPB (17:27)
[2017-08-16] MEDS: FILGRASTIM 480 MCG INJ SC (17:28)
[2017-08-16] MEDS: DULOXETINE 30 MG CAP DR PO (21:17)
[2017-08-16] MEDS: DOCUSATE SODIUM 250 MG CAP PO (21:17)
[2017-08-17] MEDS: INSULIN ASPART [NOVOLOG] 3 ML PEN SC ×6 (00:44→21:00)
[2017-08-17] MEDS: ACCU-CHEK XX ×6 (00:44→21:00)
[2017-08-17 05:21] LABS: WHITE BLOOD COUNT 19.4 10^3/ul (4.8-10.8)
[2017-08-17 05:21] LABS: ABNORMAL IP MESSAGE 1; HEMATOCRIT 28.7 % (37.0-47.0); HEMOGLOBIN 9.6 g/dl (12.0-16.0); MEAN CORPUSCULAR HEMOGLOBIN 27.2 pg (29.0-33.0); MEAN CORPUSCULAR HGB CONC 33.4 g/dl (32.0-37.0); MEAN CORPUSCULAR VOLUME 81.3 fl (82.0-101.0); MEAN PLATELET VOLUME 10.7 fl (7.4-10.4); PLATELET COUNT 162 10^3/UL (140-415); RED BLOOD COUNT 3.53 10^6/ul (4.20-5.40); RED CELL DISTRIBUTION WIDTH 17.6 % (11.5-14.5)
[2017-08-17 05:27] LABS: ADD MAN DIFF? YES; POSITIVE DIFF @See below
[2017-08-17 05:51] LABS: ALANINE AMINOTRANSFERASE 50 IU/L (13-69); ALBUMIN 2.6 g/dl (3.3-4.9); ALBUMIN/GLOBULIN RATIO 0.96; ALKALINE PHOSPHATASE 159 IU/L (42-121); ANION GAP 12 (8-16); ASPARTATE AMINO TRANSFERASE 52 IU/L (15-46); BLOOD UREA NITROGEN 17 mg/dl (7-20); CALCIUM 8.3 mg/dl (8.4-10.2); CARBON DIOXIDE 25 mmol/L (21-31); CHLORIDE 99 mmol/L (97-110); CREATININE 0.42 mg/dl (0.44-1.00); GLUCOSE 105 mg/dl (70-220); POTASSIUM 4.3 mmol/L (3.5-5.1); SODIUM 132 mmol/L (135-144); TOTAL PROTEIN 5.3 g/dl (6.1-8.1)
[2017-08-17] MEDS: METHADONE (1 MG/1 ML PO SYG) PO ×3 (06:20→22:27)
[2017-08-17] MEDS: ALLOPURINOL 300 MG TAB PO (08:33)
[2017-08-17] MEDS: ANASTROZOLE 1 MG TAB PO (08:34)
[2017-08-17] MEDS: ONDANSETRON 4 MG INJ IV (08:39)
[2017-08-17] MEDS: MEGESTROL (40 MG/ML) 10ML CUP PO ×2 (08:39→21:49)
[2017-08-17] MEDS: FAMOTIDINE 20 MG INJ IV (08:39)
[2017-08-17] MEDS: INSULIN GLARGINE [LANtus] 3 ML PEN SC (08:41)
[2017-08-17] MEDS: POLYETHYLENE GLYCOL 17 GM PACKET PO (08:50)
[2017-08-17] MEDS: BALSAM PERU/CASTOR OIL 60 GM TUBE TOP ×2 (08:50→21:40)
[2017-08-17 10:18] LABS: ANISOCYTOSIS 1+ (0-0); BAND NEUTROPHILS #M 3.2 10^3/ul (0.0-0.6); BAND NEUTROPHILS % (M) 17 % (0-4); GIANT THROMBO% (M) 4 % (0-0); LYMPHOCYTES #M 2.1 10^3/ul (0.8-2.9); LYMPHOCYTES % (M) 11 % (15-51); MICROCYTOSIS 1+ (0-0); MONOCYTE #M 0.9 10^3/ul (0.3-0.9); MONOCYTES % (M) 5 % (0-11); MYELOCYTES #M 0.1 10^3/ul (0.0-0.0); MYELOCYTES % (M) 1 % (0-0); PLATELET ESTIMATE NORMAL; POLYCHROMASIA 3+ (0-0); SEG NEUT #M 13.4 10^3/ul (1.6-7.5); SEGMENTED NEUTROPHILS (M) % 66 % (39-77); SMUDGE%M 5 % (0-0)
[2017-08-17] MEDS: TPN 1,000 ML IV (13:55)
[2017-08-17] MEDS: CEFTRIAXONE 1 GM/50 ML (PMX) 50 ML IVPB (17:26)
[2017-08-17] MEDS: FILGRASTIM 480 MCG INJ SC (17:36)
[2017-08-17] MEDS: DOCUSATE SODIUM 250 MG CAP PO (21:49)
[2017-08-17] MEDS: DULOXETINE 30 MG CAP DR PO (21:49)
[2017-08-18] MEDS: ACCU-CHEK XX ×6 (01:00→21:11)
[2017-08-18] MEDS: INSULIN ASPART [NOVOLOG] 3 ML PEN SC ×6 (01:00→21:00)
[2017-08-18 05:34] LABS: ANION GAP 12 (8-16); BLOOD UREA NITROGEN 19 mg/dl (7-20); CALCIUM 8.7 mg/dl (8.4-10.2); CARBON DIOXIDE 26 mmol/L (21-31); CHLORIDE 100 mmol/L (97-110); GLUCOSE 91 mg/dl (70-220); MAGNESIUM 1.8 mg/dl (1.7-2.5); PHOSPHORUS 3.8 mg/dl (2.5-4.9); POTASSIUM 4.4 mmol/L (3.5-5.1); SODIUM 134 mmol/L (135-144)
[2017-08-18] MEDS: METHADONE (1 MG/1 ML PO SYG) PO ×3 (06:00→13:35)
[2017-08-18] MEDS: FAMOTIDINE 20 MG INJ IV (08:21)
[2017-08-18] MEDS: MEGESTROL (40 MG/ML) 10ML CUP PO ×2 (08:21→21:10)
[2017-08-18] MEDS: ALLOPURINOL 300 MG TAB PO (08:22)
[2017-08-18] MEDS: POLYETHYLENE GLYCOL 17 GM PACKET PO (08:22)
[2017-08-18] MEDS: BALSAM PERU/CASTOR OIL 60 GM TUBE TOP ×2 (08:23→21:10)
[2017-08-18] MEDS: ONDANSETRON 4 MG INJ IV (08:26)
[2017-08-18] MEDS: ANASTROZOLE 1 MG TAB PO (08:33)
[2017-08-18] MEDS: INSULIN GLARGINE [LANtus] 3 ML PEN SC (08:44)
[2017-08-18] MEDS: TPN 1,000 ML IV ×2 (10:34→15:47)
[2017-08-18] MEDS: FILGRASTIM 480 MCG INJ SC (16:10)
[2017-08-18] MEDS: CEFTRIAXONE 1 GM/50 ML (PMX) 50 ML IVPB (16:21)
[2017-08-18] MEDS: DULOXETINE 30 MG CAP DR PO (21:10)
[2017-08-18] MEDS: DOCUSATE SODIUM 250 MG CAP PO (21:10)
== END 2017-08-18 21:40 | DRG 840 ==
LOC: MS1 08-03 21:20 → PP2 08-03 21:29 → E/R 15:15 → MS1 08-03 22:00 → PP2 08-03 22:20
PROC: 07DC3ZX Extraction of Pelvis Lymphatic, Percutaneous Approach, Diagnostic (ICD-10-PCS; principal; 2017-07-27)
PROC: 30233K1 Transfusion of Nonautologous Frozen Plasma into Peripheral Vein, Percutaneous Approach (ICD-10-PCS; 2017-07-27)
PROC: 30233N1 Transfusion of Nonautologous Red Blood Cells into Peripheral Vein, Percutaneous Approach (ICD-10-PCS; 2017-07-28)
PROC: 3E04305 Introduction of Other Antineoplastic into Central Vein, Percutaneous Approach (ICD-10-PCS; 2017-08-04)
DX: C83.36 Diffuse large B-cell lymphoma, intrapelvic lymph nodes (principal); E43 Unspecified severe protein-calorie malnutrition; J90 Pleural effusion, not elsewhere classified; D61.810 Antineoplastic chemotherapy induced pancytopenia; C77.2 Secondary and unspecified malignant neoplasm of intra-abdominal lymph nodes; C79.51 Secondary malignant neoplasm of bone; T82.514A Breakdown (mechanical) of infusion catheter, initial encounter; R18.8 Other ascites; E87.1 Hypo-osmolality and hyponatremia; N13.30 Unspecified hydronephrosis; N39.0 Urinary tract infection, site not specified; G89.3 Neoplasm related pain (acute) (chronic); C50.919 Malignant neoplasm of unspecified site of unspecified female breast; R59.0 Localized enlarged lymph nodes; R73.03 Prediabetes; F32.9 Major depressive disorder, single episode, unspecified; F41.9 Anxiety disorder, unspecified; K80.20 Calculus of gallbladder without cholecystitis without obstruction; Z91.14 Patient's other noncompliance with medication regimen; R33.0 Drug induced retention of urine; T40.605A Adverse effect of unspecified narcotics, initial encounter; D63.0 Anemia in neoplastic disease; N13.9 Obstructive and reflux uropathy, unspecified; Z68.26 Body mass index [BMI] 26.0-26.9, adult; Z91.19 Patient's noncompliance with other medical treatment and regimen; Z85.028 Personal history of other malignant neoplasm of stomach; R11.2 Nausea with vomiting, unspecified; D53.9 Nutritional anemia, unspecified; B96.20 Unspecified Escherichia coli [E. coli] as the cause of diseases classified elsewhere; B96.1 Klebsiella pneumoniae [K. pneumoniae] as the cause of diseases classified elsewhere
CPT/HCPCS: 36430; 36598; 58340; 70450; 71045; 71260; 72147; 72149; 74018; 74176; 74240; 74250; 77001; 77012; 80048; 80053; 80061; 81003; 82270; 82378; 82728; 82784; 82962; 83036; 83540; 83615; 83690; 83735; 84100; 84132; 84134; 84155; 84165; 84443; 84478; 84484; 84560; 85014; 85018; 85025; 85610; 85730; 86300; 86320; 86850; 86900; 86901; 86920; 87086; 88307; 88313; 88341; 88342; 92526; 92610; 93005; 93306; 94640; 94664; 96372; 96374; 96375; 96376; 97110; 97116; 97163; 97166; 97530; 97535; 99285-25; J9310

== ENCOUNTER → 2017-07-02 | Outpatient (CLI) | payer MEDICARE ==
[2017-07-02] MEDS: IOHEXOL 300MG/ML 30 ML BTL (14:53)
[2017-07-02] MEDS: HEPARIN 1000 UNITS/ML 10 ML INJ (15:06)
== END | disposition home or self-care (01) ==
LOC: RAD 14:00
DX: C50.919 Malignant neoplasm of unspecified site of unspecified female breast (principal)
CPT/HCPCS: 77001

== ENCOUNTER 2017-10-14 13:22 | Inpatient (IN) | payer MEDICARE, OTHER ==
[2017-10-14 13:46] LABS: ADD MAN DIFF? NO
[2017-10-14 13:53] LABS: ABNORMAL IP MESSAGE 1; BASOPHIL # 0.1 10^3/ul (0.0-0.1); BASOPHILS % 0.8 % (0.0-2.0); EOSINOPHILS % 0.3 % (0.0-7.0); HEMATOCRIT 24.3 % (37.0-47.0); HEMOGLOBIN 7.6 g/dl (12.0-16.0); LYMPHOCYTES # 0.6 10^3/ul (0.8-2.9); LYMPHOCYTES % 8.8 % (15.0-51.0); MEAN CORPUSCULAR HGB CONC 31.3 g/dl (32.0-37.0); MEAN CORPUSCULAR VOLUME 86.5 fl (82.0-101.0); MEAN PLATELET VOLUME 8.8 fl (7.4-10.4); MONOCYTE # 0.6 10^3/ul (0.3-0.9); MONOCYTES % 8.4 % (0.0-11.0); NEUTROPHIL # 5.3 10^3/ul (1.6-7.5); NEUTROPHILS % 80.8 % (39.0-77.0); PLATELET COUNT 369 10^3/UL (140-415); POSITIVE DIFF @See below; RED BLOOD COUNT 2.81 10^6/ul (4.20-5.40); RED CELL DISTRIBUTION WIDTH 15.9 % (11.5-14.5)
[2017-10-14 13:53] LABS: WHITE BLOOD COUNT 6.6 10^3/ul (4.8-10.8)
[2017-10-14 14:11] LABS: ALANINE AMINOTRANSFERASE 22 IU/L (13-69); ALBUMIN 3.2 g/dl (3.3-4.9); ALKALINE PHOSPHATASE 89 IU/L (42-121); ANION GAP 15 (8-16); ASPARTATE AMINO TRANSFERASE 80 IU/L (15-46); BILIRUBIN,INDIRECT 0.2 mg/dl (0-1.1); BILIRUBIN,TOTAL 0.2 mg/dl (0.2-1.3); BLOOD UREA NITROGEN 13 mg/dl (7-20); CALCIUM 8.9 mg/dl (8.4-10.2); CARBON DIOXIDE 26 mmol/L (21-31); CHLORIDE 98 mmol/L (97-110); CREATININE 0.78 mg/dl (0.44-1.00); GLUCOSE 97 mg/dl (70-220); POTASSIUM 3.8 mmol/L (3.5-5.1); SODIUM 135 mmol/L (135-144); TOTAL PROTEIN 6.4 g/dl (6.1-8.1)
[2017-10-14 14:12] LABS: INR 1.12; PROTIME 14.6 Sec (11.9-14.9); PT RATIO 1.1
[2017-10-14 14:13] LABS: PARTIAL THROMBOPLASTIN TIME 41.9 Sec (25.0-35.0)
[2017-10-14] MEDS: SOD CHLORIDE 0.9% 1,000 ML IV (16:16)
[2017-10-14] MEDS ORDERED: MAGNESIUM HYDROXIDE 30ML CUP PO (16:30)
[2017-10-14] MEDS ORDERED: morphine 2 MG INJ IV (16:30)
[2017-10-14] MEDS ORDERED: DOCUSATE SODIUM 100 MG CAP PO (16:30)
[2017-10-14] MEDS ORDERED: HYDROCODONE/APAP (5/325) TAB PO (16:30)
[2017-10-14] MEDS ORDERED: LORAZEPAM 0.5 MG TAB PO (16:30)
[2017-10-14] MEDS ORDERED: NACL 0.9% 3 ML SYG IV (16:30)
[2017-10-14] MEDS ORDERED: GLUCAGON 1 MG INJ IM (17:00)
[2017-10-14] MEDS ORDERED: DEXTROSE 50% 50 ML SYRINGE IV ×2 (17:00)
[2017-10-14] MEDS ORDERED: GLUCOSE GEL 15 GRAM TUBE BUCCAL (17:00)
[2017-10-14] MEDS ORDERED: GLUCOSE GEL 15 GRAM TUBE PO ×2 (17:00)
[2017-10-14 17:52] LABS: IMMEDIATE SPIN CROSSMATCH 1 1
[2017-10-14] MEDS: INSULIN ASPART [NOVOLOG] 3 ML PEN SC ×2 (18:00→20:59)
[2017-10-14] MEDS: ASCORBIC ACID 500 MG TAB PO (20:58)
[2017-10-14] MEDS: SOD CHLORIDE 0.9% 250 ML IV* (21:00)
[2017-10-14 21:10] LABS: LACTATE DEHYDROGENASE 5735 IU/L (313-618)
[2017-10-14] MEDS: ZOLEDRONIC ACID 4 MG in SOD CHLORIDE 0.9% 100 ML IVPB (21:18)
[2017-10-15] MEDS: ACCU-CHEK XX (02:20)
[2017-10-15 05:37] LABS: ADD MAN DIFF? NO
[2017-10-15 05:44] LABS: ABNORMAL IP MESSAGE 1; BASOPHIL # 0.1 10^3/ul (0.0-0.1); BASOPHILS % 0.8 % (0.0-2.0); EOSINOPHILS # 0.1 10^3/ul (0.0-0.5); EOSINOPHILS % 0.8 % (0.0-7.0); HEMATOCRIT 26.5 % (37.0-47.0); HEMOGLOBIN 8.5 g/dl (12.0-16.0); LYMPHOCYTES # 0.5 10^3/ul (0.8-2.9); LYMPHOCYTES % 8.1 % (15.0-51.0); MEAN CORPUSCULAR HEMOGLOBIN 27.2 pg (29.0-33.0); MEAN CORPUSCULAR HGB CONC 32.1 g/dl (32.0-37.0); MEAN CORPUSCULAR VOLUME 84.7 fl (82.0-101.0); MEAN PLATELET VOLUME 9.4 fl (7.4-10.4); MONOCYTE # 0.7 10^3/ul (0.3-0.9); MONOCYTES % 10.2 % (0.0-11.0); NEUTROPHIL # 5.2 10^3/ul (1.6-7.5); NEUTROPHILS % 78.9 % (39.0-77.0); PLATELET COUNT 372 10^3/UL (140-415); RED BLOOD COUNT 3.13 10^6/ul (4.20-5.40); RED CELL DISTRIBUTION WIDTH 15.6 % (11.5-14.5)
[2017-10-15 05:44] LABS: WHITE BLOOD COUNT 6.6 10^3/ul (4.8-10.8)
[2017-10-15 05:47] LABS: POSITIVE DIFF @See below
[2017-10-15 06:11] LABS: ALANINE AMINOTRANSFERASE 28 IU/L (13-69); ALBUMIN 2.8 g/dl (3.3-4.9); ALBUMIN/GLOBULIN RATIO 0.96; ALKALINE PHOSPHATASE 77 IU/L (42-121); ANION GAP 10 (8-16); ASPARTATE AMINO TRANSFERASE 75 IU/L (15-46); BILIRUBIN,INDIRECT 0.4 mg/dl (0-1.1); BILIRUBIN,TOTAL 0.4 mg/dl (0.2-1.3); BLOOD UREA NITROGEN 13 mg/dl (7-20); CALCIUM 9.4 mg/dl (8.4-10.2); CARBON DIOXIDE 30 mmol/L (21-31); CHLORIDE 101 mmol/L (97-110); CREATININE 0.75 mg/dl (0.44-1.00); GLUCOSE 78 mg/dl (70-220); MAGNESIUM 1.6 mg/dl (1.7-2.5); POTASSIUM 3.9 mmol/L (3.5-5.1); SODIUM 137 mmol/L (135-144); TOTAL PROTEIN 5.7 g/dl (6.1-8.1)
[2017-10-15] MEDS: PANTOPRAZOLE (EC) 40 MG TAB PO (06:59)
[2017-10-15 07:11] LABS: HEMOGLOBIN A1C 5.4 % (0-5.9)
[2017-10-15] MEDS: INSULIN ASPART [NOVOLOG] 3 ML PEN SC ×2 (07:50→11:18)
[2017-10-15] MEDS: ALLOPURINOL 300 MG TAB PO (08:37)
[2017-10-15] MEDS: ZINC SULFATE 220 MG CAP PO (08:37)
[2017-10-15] MEDS: SOD CHLORIDE 0.9% 1,000 ML IV (08:37)
[2017-10-15] MEDS: DULOXETINE 30 MG CAP DR PO (08:37)
[2017-10-15] MEDS: ASCORBIC ACID 500 MG TAB PO ×2 (08:37→20:43)
[2017-10-15] MEDS: MULTIVITAMINS THERAPEUTIC TAB PO (08:37)
[2017-10-15] MEDS: ANASTROZOLE 1 MG TAB PO (08:40)
[2017-10-15] MEDS: ONDANSETRON 4 MG INJ IV (11:11)
[2017-10-15] MEDS: SOD CHLORIDE 0.9% 100 ML (12:40)
[2017-10-15] MEDS: IOHEXOL 300MG/ML 150 ML BTL (12:40)
[2017-10-15] MEDS: MAGNESIUM SULFATE 1 GM/D5W 100 ML IVPB (13:15)
[2017-10-16] MEDS: PANTOPRAZOLE (EC) 40 MG TAB PO (05:43)
[2017-10-16 05:46] LABS: ADD MAN DIFF? NO
[2017-10-16 05:53] LABS: ABNORMAL IP MESSAGE 1; BASOPHIL # 0.1 10^3/ul (0.0-0.1); BASOPHILS % 0.8 % (0.0-2.0); EOSINOPHILS # 0.1 10^3/ul (0.0-0.5); EOSINOPHILS % 0.8 % (0.0-7.0); HEMATOCRIT 26.4 % (37.0-47.0); HEMOGLOBIN 8.5 g/dl (12.0-16.0); LYMPHOCYTES # 0.4 10^3/ul (0.8-2.9); LYMPHOCYTES % 7.4 % (15.0-51.0); MEAN CORPUSCULAR HEMOGLOBIN 27.4 pg (29.0-33.0); MEAN CORPUSCULAR HGB CONC 32.2 g/dl (32.0-37.0); MEAN CORPUSCULAR VOLUME 85.2 fl (82.0-101.0); MEAN PLATELET VOLUME 9.5 fl (7.4-10.4); MONOCYTE # 0.5 10^3/ul (0.3-0.9); MONOCYTES % 8.9 % (0.0-11.0); NEUTROPHIL # 4.8 10^3/ul (1.6-7.5); NEUTROPHILS % 81.1 % (39.0-77.0); PLATELET COUNT 381 10^3/UL (140-415); RED CELL DISTRIBUTION WIDTH 15.8 % (11.5-14.5)
[2017-10-16 05:53] LABS: WHITE BLOOD COUNT 5.9 10^3/ul (4.8-10.8)
[2017-10-16 06:08] LABS: INR 1.11; PROTIME 14.5 Sec (11.9-14.9); PT RATIO 1.1
[2017-10-16 06:09] LABS: PARTIAL THROMBOPLASTIN TIME 42.1 Sec (25.0-35.0)
[2017-10-16 06:10] LABS: POSITIVE DIFF @See below
[2017-10-16 06:16] LABS: ALANINE AMINOTRANSFERASE 27 IU/L (13-69); ALBUMIN 2.9 g/dl (3.3-4.9); ALBUMIN/GLOBULIN RATIO 1.03; ALKALINE PHOSPHATASE 81 IU/L (42-121); ANION GAP 11 (8-16); ASPARTATE AMINO TRANSFERASE 69 IU/L (15-46); BILIRUBIN,INDIRECT 0.3 mg/dl (0-1.1); BILIRUBIN,TOTAL 0.3 mg/dl (0.2-1.3); BLOOD UREA NITROGEN 13 mg/dl (7-20); CALCIUM 8.5 mg/dl (8.4-10.2); CARBON DIOXIDE 29 mmol/L (21-31); CHLORIDE 100 mmol/L (97-110); CREATININE 0.84 mg/dl (0.44-1.00); GLUCOSE 78 mg/dl (70-220); POTASSIUM 4.2 mmol/L (3.5-5.1); SODIUM 136 mmol/L (135-144); TOTAL PROTEIN 5.7 g/dl (6.1-8.1)
[2017-10-16] MEDS: SOD CHLORIDE 0.9% 1,000 ML IV (08:16)
[2017-10-16] MEDS: ZINC SULFATE 220 MG CAP PO (09:18)
[2017-10-16] MEDS: DULOXETINE 30 MG CAP DR PO (09:18)
[2017-10-16] MEDS: MULTIVITAMINS THERAPEUTIC TAB PO (09:18)
[2017-10-16] MEDS: ASCORBIC ACID 500 MG TAB PO ×2 (09:18→20:16)
[2017-10-16] MEDS: ALLOPURINOL 300 MG TAB PO (09:18)
[2017-10-16] MEDS: ANASTROZOLE 1 MG TAB PO (09:20)
[2017-10-16 11:21] LABS: CA27.29 134 U/mL (<38)
[2017-10-16] MEDS: ALTEPLASE (CATHFLO) 2 MG INJ CATHETER (11:45)
[2017-10-16] MEDS: predniSONE 50 MG TAB PO ×2 (12:35→20:16)
[2017-10-16] MEDS: D5-NS + KCL 20 MEQ 1,000 ML IV (12:45)
[2017-10-16] MEDS ORDERED: ACETAMINOPHEN 325 MG TAB PO (13:00)
[2017-10-16] MEDS ORDERED: MEPERIDINE 50 MG INJ IV (14:00)
[2017-10-16] MEDS ORDERED: EPINEPHrine 1 MG INJ IM (15:00)
[2017-10-16] MEDS ORDERED: DIPHENHYDRAMINE 50 MG INJ IV (15:00)
[2017-10-16 17:21] LABS: BETA-2 MICROGLOBULIN 7.02 mg/L (< OR = 2.51)
[2017-10-16] MEDS: DIPHENHYDRAMINE 50 MG CAP PO (17:33)
[2017-10-16] MEDS: ACETAMINOPHEN 500 MG TAB PO (17:33)
[2017-10-16] MEDS: DIPHENHYDRAMINE 50 MG INJ IV (18:18)
[2017-10-16] MEDS: RITUXIMAB IV (18:34)
[2017-10-16] MEDS: DEXTROSE 5% IV (18:34)
[2017-10-17] MEDS: CYCLOPHOSPHAMIDE IV (02:54)
[2017-10-17] MEDS: DEXTROSE 5% IV ×3 (02:54→06:06)
[2017-10-17] MEDS: VINCRISTINE IV (04:17)
[2017-10-17] MEDS: ONDANSETRON INJ 16 MG, DEXAMETHASONE 4 MG/ML 20 MG in DEXTROSE 5% 50 ML IV (06:02)
[2017-10-17] MEDS: D5-NS + KCL 20 MEQ 1,000 ML IV ×3 (06:02→20:43)
[2017-10-17] MEDS: DOXORUBICIN IV (06:06)
[2017-10-17] MEDS: PANTOPRAZOLE (EC) 40 MG TAB PO (06:07)
[2017-10-17] MEDS: DULOXETINE 30 MG CAP DR PO (09:00)
[2017-10-17] MEDS: ZINC SULFATE 220 MG CAP PO (09:00)
[2017-10-17] MEDS: ANASTROZOLE 1 MG TAB PO (09:07)
[2017-10-17] MEDS: predniSONE 50 MG TAB PO ×2 (09:08→20:44)
[2017-10-17] MEDS: ALLOPURINOL 300 MG TAB PO (09:08)
[2017-10-17] MEDS: MULTIVITAMINS THERAPEUTIC TAB PO (09:08)
[2017-10-17] MEDS: ASCORBIC ACID 500 MG TAB PO ×2 (09:08→20:43)
[2017-10-17 09:26] LABS: ADD UMIC YES; UR ASCORBIC ACID 40 mg/dL (NEGATIVE); UR BACTERIA FEW /HPF (NONE SEEN); UR BILIRUBIN (Dip) NEGATIVE (NEGATIVE); UR BLOOD (Dip) NEGATIVE (NEGATIVE); UR CLARITY CLEAR (CLEAR); UR COLOR YELLOW (YELLOW); UR GLUCOSE (Dip) NEGATIVE (NEGATIVE); UR KETONES (Dip) NEGATIVE (NEGATIVE); UR LEUKOCYTE ESTERASE (Dip) 1+ Leu/ul (NEGATIVE); UR NITRITE (Dip) NEGATIVE (NEGATIVE); UR RBC 0 /HPF (0-5); UR SPECIFIC GRAVITY (Dip) 1.014 (1.003-1.030); UR TOTAL PROTEIN (Dip) NEGATIVE (NEGATIVE); UR UROBILINOGEN (Dip) NEGATIVE (NEGATIVE); UR WBC 9 /HPF (0-5)
[2017-10-18] MEDS: D5-NS + KCL 20 MEQ 1,000 ML IV ×4 (04:00→22:48)
[2017-10-18] MEDS: PANTOPRAZOLE (EC) 40 MG TAB PO (05:23)
[2017-10-18] MEDS: MULTIVITAMINS THERAPEUTIC TAB PO (08:55)
[2017-10-18] MEDS: ZINC SULFATE 220 MG CAP PO (08:55)
[2017-10-18] MEDS: predniSONE 50 MG TAB PO ×2 (08:55→21:00)
[2017-10-18] MEDS: DULOXETINE 30 MG CAP DR PO (08:56)
[2017-10-18] MEDS: ALLOPURINOL 300 MG TAB PO (08:56)
[2017-10-18] MEDS: ASCORBIC ACID 500 MG TAB PO ×2 (08:58→21:00)
[2017-10-18] MEDS: ANASTROZOLE 1 MG TAB PO (08:58)
[2017-10-18] MEDS: ACETAMINOPHEN 325 MG TAB PO (09:02)
[2017-10-19] MEDS: PANTOPRAZOLE (EC) 40 MG TAB PO (05:56)
[2017-10-19] MEDS: D5-NS + KCL 20 MEQ 1,000 ML IV (06:40)
[2017-10-19] MEDS: ALLOPURINOL 300 MG TAB PO (08:44)
[2017-10-19] MEDS: DULOXETINE 30 MG CAP DR PO (08:44)
[2017-10-19] MEDS: ASCORBIC ACID 500 MG TAB PO ×2 (08:44→20:13)
[2017-10-19] MEDS: MULTIVITAMINS THERAPEUTIC TAB PO (08:44)
[2017-10-19] MEDS: ZINC SULFATE 220 MG CAP PO (08:44)
[2017-10-19] MEDS: predniSONE 50 MG TAB PO ×2 (08:45→20:13)
[2017-10-19] MEDS: ANASTROZOLE 1 MG TAB PO (08:47)
[2017-10-19] MEDS: FILGRASTIM 480 MCG INJ SC (18:38)
[2017-10-20] MEDS: PANTOPRAZOLE (EC) 40 MG TAB PO (05:25)
[2017-10-20] MEDS: ASCORBIC ACID 500 MG TAB PO (09:10)
[2017-10-20] MEDS: predniSONE 50 MG TAB PO (09:10)
[2017-10-20] MEDS: ALLOPURINOL 300 MG TAB PO (09:10)
[2017-10-20] MEDS: MULTIVITAMINS THERAPEUTIC TAB PO (09:10)
[2017-10-20] MEDS: DULOXETINE 30 MG CAP DR PO (09:10)
[2017-10-20] MEDS: ZINC SULFATE 220 MG CAP PO (09:10)
[2017-10-20] MEDS: BISACODYL (EC) 5 MG TAB PO (09:15)
[2017-10-20] MEDS: ANASTROZOLE 1 MG TAB PO (09:19)
[2017-10-20] MEDS: HEPARIN (100 UNITS/ML) 5 ML SYG CATHETER (16:04)
[2017-10-20] MEDS ORDERED: FILGRASTIM 480 MCG INJ SC (17:00)
== END 2017-10-20 16:20 | DRG 841 ==
LOC: E/R 13:22 → MS1 15:10
PROVIDERS: Internal Medicine
PROC: 30243N1 Transfusion of Nonautologous Red Blood Cells into Central Vein, Percutaneous Approach (ICD-10-PCS; principal; 2017-10-14)
PROC: 3E04305 Introduction of Other Antineoplastic into Central Vein, Percutaneous Approach (ICD-10-PCS; 2017-10-16)
DX: C83.30 Diffuse large B-cell lymphoma, unspecified site (principal); C79.51 Secondary malignant neoplasm of bone; C50.919 Malignant neoplasm of unspecified site of unspecified female breast; K59.00 Constipation, unspecified; D64.81 Anemia due to antineoplastic chemotherapy; T45.1X5A Adverse effect of antineoplastic and immunosuppressive drugs, initial encounter; D63.0 Anemia in neoplastic disease
CPT/HCPCS: 36415; 36430; 71045; 71260; 74177; 80053; 81001; 82962; 83036; 83615; 83735; 85025; 85610; 85730; 86300; 86850; 86900; 86901; 86920; 87040; 87081; 87086; 93005; 93308; 99217; 99285-25; J3487; J9310

== ENCOUNTER 2017-10-23 15:45 | Inpatient (IN) | payer MEDICARE ==
[2017-10-23] MEDS: ONDANSETRON 4 MG INJ IV (16:08)
[2017-10-23] MEDS: morphine 4 MG/ML VIAL IV (16:08)
[2017-10-23] MEDS: SODIUM CHLORIDE 0.9% 1L BAG IV* (16:08)
[2017-10-23 17:26] LABS: WHITE BLOOD COUNT 1.9 10^3/ul (4.8-10.8)
[2017-10-23 17:26] LABS: ABNORMAL IP MESSAGE 1; HEMATOCRIT 26.5 % (37.0-47.0); HEMOGLOBIN 8.4 g/dl (12.0-16.0); MEAN CORPUSCULAR HEMOGLOBIN 27.1 pg (29.0-33.0); MEAN CORPUSCULAR HGB CONC 31.7 g/dl (32.0-37.0); MEAN CORPUSCULAR VOLUME 85.5 fl (82.0-101.0); PLATELET COUNT 169 10^3/UL (140-415); RED CELL DISTRIBUTION WIDTH 16.1 % (11.5-14.5)
[2017-10-23 17:32] LABS: ADD MAN DIFF? YES; POSITIVE DIFF @See below
[2017-10-23 17:34] LABS: LACTIC ACID 3.2 mmol/L (0.5-2.0)
[2017-10-23 17:41] LABS: ADD UMIC YES; UR ASCORBIC ACID NEGATIVE (NEGATIVE); UR BACTERIA MODERATE /HPF (NONE SEEN); UR BILIRUBIN (Dip) NEGATIVE (NEGATIVE); UR BLOOD (Dip) 1+ mg/dL (NEGATIVE); UR CLARITY SLIGHTLY CLOUDY (CLEAR); UR COLOR YELLOW (YELLOW); UR GLUCOSE (Dip) NEGATIVE (NEGATIVE); UR KETONES (Dip) NEGATIVE (NEGATIVE); UR LEUKOCYTE ESTERASE (Dip) 3+ Leu/ul (NEGATIVE); UR NITRITE (Dip) NEGATIVE (NEGATIVE); UR RBC 1 /HPF (0-5); UR SPECIFIC GRAVITY (Dip) 1.005 (1.003-1.030); UR TOTAL PROTEIN (Dip) NEGATIVE (NEGATIVE); UR UROBILINOGEN (Dip) NEGATIVE (NEGATIVE); UR WBC 89 /HPF (0-5)
[2017-10-23 17:44] LABS: ALANINE AMINOTRANSFERASE 19 IU/L (13-69); ALBUMIN 2.9 g/dl (3.3-4.9); ALBUMIN/GLOBULIN RATIO 1.16; ALKALINE PHOSPHATASE 65 IU/L (42-121); ANION GAP 13 (8-16); ASPARTATE AMINO TRANSFERASE 37 IU/L (15-46); BILIRUBIN,INDIRECT 0.6 mg/dl (0-1.1); BILIRUBIN,TOTAL 0.6 mg/dl (0.2-1.3); BLOOD UREA NITROGEN 17 mg/dl (7-20); CALCIUM 7.1 mg/dl (8.4-10.2); CARBON DIOXIDE 25 mmol/L (21-31); CHLORIDE 98 mmol/L (97-110); CREATININE 0.65 mg/dl (0.44-1.00); GLUCOSE 118 mg/dl (70-220); POTASSIUM 4.2 mmol/L (3.5-5.1); SODIUM 132 mmol/L (135-144); TOTAL PROTEIN 5.4 g/dl (6.1-8.1)
[2017-10-23] MEDS: CEFTRIAXONE 1 GM/50 ML (PMX) 50 ML IVPB (17:46)
[2017-10-23 17:55] LABS: TROPONIN-I < 0.012 ng/ml (0.000-0.120)
[2017-10-23 18:08] LABS: INR 1.13; PROTIME 14.7 Sec (11.9-14.9); PT RATIO 1.1
[2017-10-23 18:09] LABS: PARTIAL THROMBOPLASTIN TIME 32.5 Sec (25.0-35.0)
[2017-10-23 18:31] LABS: ANISOCYTOSIS 2+ (0-0); LYMPHOCYTES #M 0.1 10^3/ul (0.8-2.9); LYMPHOCYTES % (M) 10 % (15-51); MICROCYTOSIS 1+ (0-0); MONOCYTES % (M) 1 % (0-11); PLATELET MORPHOLOGY COMMENT @See below; POIKILOCYTOSIS 2+ (0-0); POLYCHROMASIA 1+ (0-0); SEGMENTED NEUTROPHILS (M) % 89 % (39-77); SMUDGE%M 12 % (0-0)
[2017-10-23] MEDS ORDERED: ONDANSETRON 4 MG INJ IV (19:00)
[2017-10-23 19:21] LABS: LACTIC ACID 2.7 mmol/L (0.5-2.0)
[2017-10-23 19:39] LABS: PATH REVIEW? YES
[2017-10-23] MEDS ORDERED: CEFTRIAXONE 1 GM/50 ML (PMX) 50 ML IVPB (20:30)
[2017-10-23] MEDS ORDERED: HYDROmorphONE 2 MG TAB PO (21:00)
[2017-10-23] MEDS ORDERED: MINERAL OIL 133 ML ENEMA PR (21:00)
[2017-10-23] MEDS ORDERED: ONDANSETRON 4 MG TAB PO (21:00)
[2017-10-23] MEDS ORDERED: MAGNESIUM HYDROXIDE 30ML CUP PO (21:00)
[2017-10-23] MEDS ORDERED: LACTULOSE 30ML CUP PO (21:00)
[2017-10-23] MEDS: ACETAMINOPHEN 325 MG TAB PO (21:20)
[2017-10-23 23:18] LABS: LACTIC ACID 1.3 mmol/L (0.5-2.0)
[2017-10-23] MEDS: predniSONE 50 MG TAB PO (23:30)
[2017-10-24 01:20] LABS: LACTIC ACID 1.4 mmol/L (0.5-2.0)
[2017-10-24] MEDS ORDERED: PENDING SANTYL ORDER FOR WOUND CARE XX (03:30)
[2017-10-24 06:21] LABS: ABNORMAL IP MESSAGE 1; HEMATOCRIT 23.8 % (37.0-47.0); HEMOGLOBIN 7.7 g/dl (12.0-16.0); MEAN CORPUSCULAR HEMOGLOBIN 27.5 pg (29.0-33.0); MEAN CORPUSCULAR HGB CONC 32.4 g/dl (32.0-37.0); MEAN PLATELET VOLUME 10.3 fl (7.4-10.4); PLATELET COUNT 138 10^3/UL (140-415); RED CELL DISTRIBUTION WIDTH 16.2 % (11.5-14.5)
[2017-10-24 06:21] LABS: WHITE BLOOD COUNT 0.9 10^3/ul (4.8-10.8)
[2017-10-24 06:27] LABS: ADD MAN DIFF? YES; POSITIVE DIFF @See below
[2017-10-24 06:51] LABS: LACTIC ACID 1.1 mmol/L (0.5-2.0)
[2017-10-24 06:52] LABS: ANION GAP 6 (8-16); BLOOD UREA NITROGEN 14 mg/dl (7-20); CARBON DIOXIDE 28 mmol/L (21-31); CHLORIDE 104 mmol/L (97-110); CREATININE 0.68 mg/dl (0.44-1.00); GLUCOSE 103 mg/dl (70-220); POTASSIUM 4.8 mmol/L (3.5-5.1); SODIUM 133 mmol/L (135-144)
[2017-10-24 07:14] LABS: HEMOGLOBIN A1C 5.8 % (0-5.9)
[2017-10-24] MEDS: SOD CHLORIDE 0.9% 250 ML IV* (07:37)
[2017-10-24 08:15] LABS: ANISOCYTOSIS 1+ (0-0); BAND NEUTROPHILS % (M) 4 % (0-4); BASOPHILS % (M) 1 % (0-2); EOSINOPHILS % (M) 1 % (0-7); GIANT THROMBO% (M) 4 % (0-0); LYMPHOCYTES #M 0.2 10^3/ul (0.8-2.9); LYMPHOCYTES % (M) 24 % (15-51); MICROCYTOSIS 1+ (0-0); MONOCYTES % (M) 2 % (0-11); PLATELET ESTIMATE DECREASED; POIKILOCYTOSIS 1+ (0-0); POLYCHROMASIA 3+ (0-0); SEG NEUT #M 0.6 10^3/ul (1.6-7.5); SEGMENTED NEUTROPHILS (M) % 67 % (39-77); SMUDGE%M 6 % (0-0)
[2017-10-24] MEDS: predniSONE 50 MG TAB PO ×2 (09:40→21:32)
[2017-10-24] MEDS: MULTIVITAMINS THERAPEUTIC TAB PO (09:40)
[2017-10-24] MEDS: CEFEPIME 1GM/50 ML (PMX) 50 ML IVPB ×2 (09:40→21:29)
[2017-10-24] MEDS: FERROUS SULFATE (EC) 325 MG TAB PO (09:40)
[2017-10-24] MEDS: DOCUSATE SODIUM 100 MG CAP PO (09:40)
[2017-10-24] MEDS: DULOXETINE 30 MG CAP DR PO (09:40)
[2017-10-24] MEDS: ALLOPURINOL 300 MG TAB PO (09:40)
[2017-10-24] MEDS: POLYETHYLENE GLYCOL 17 GM PACKET PO (09:40)
[2017-10-24] MEDS ORDERED: VANCOMYCIN IV PER PHARMACY XX (10:00)
[2017-10-24] MEDS: VANCOMYCIN 1.25 GM in SOD CHLORIDE 0.9% 250 ML IVPB (12:00)
[2017-10-24] MEDS: ANASTROZOLE 1 MG TAB PO (15:57)
[2017-10-24] MEDS: LEVOFLOXACIN 500MG/D5W (PMX) 100 ML IVPB (17:39)
[2017-10-24] MEDS: FILGRASTIM 480 MCG INJ SC (17:40)
[2017-10-24] MEDS: ACETAMINOPHEN 325 MG TAB PO (21:30)
[2017-10-25] MEDS: VANCOMYCIN 750 MG in DEXTROSE 5% 150 ML IVPB ×2 (00:41→12:36)
[2017-10-25 05:32] LABS: ABNORMAL IP MESSAGE 1; HEMATOCRIT 24.4 % (37.0-47.0); HEMOGLOBIN 7.9 g/dl (12.0-16.0); MEAN CORPUSCULAR HEMOGLOBIN 27.5 pg (29.0-33.0); MEAN CORPUSCULAR HGB CONC 32.4 g/dl (32.0-37.0); MEAN PLATELET VOLUME 10.5 fl (7.4-10.4); PLATELET COUNT 138 10^3/UL (140-415); RED BLOOD COUNT 2.87 10^6/ul (4.20-5.40)
[2017-10-25 05:32] LABS: WHITE BLOOD COUNT 0.3 10^3/ul (4.8-10.8)
[2017-10-25 05:38] LABS: POSITIVE DIFF @See below
[2017-10-25 05:39] LABS: ADD MAN DIFF? YES
[2017-10-25] MEDS: DULOXETINE 30 MG CAP DR PO ×2 (09:00→09:16)
[2017-10-25] MEDS: ANASTROZOLE 1 MG TAB PO (09:15)
[2017-10-25] MEDS: POLYETHYLENE GLYCOL 17 GM PACKET PO (09:16)
[2017-10-25] MEDS: DOCUSATE SODIUM 100 MG CAP PO (09:16)
[2017-10-25] MEDS: predniSONE 50 MG TAB PO ×2 (09:16→21:02)
[2017-10-25] MEDS: FERROUS SULFATE (EC) 325 MG TAB PO (09:16)
[2017-10-25] MEDS: CEFEPIME 1GM/50 ML (PMX) 50 ML IVPB ×2 (09:16→21:03)
[2017-10-25] MEDS: ALLOPURINOL 300 MG TAB PO (09:16)
[2017-10-25] MEDS: MULTIVITAMINS THERAPEUTIC TAB PO (09:16)
[2017-10-25 09:26] LABS: ALANINE AMINOTRANSFERASE 18 IU/L (13-69); ALBUMIN 2.5 g/dl (3.3-4.9); ALBUMIN/GLOBULIN RATIO 1.04; ALKALINE PHOSPHATASE 83 IU/L (42-121); ANION GAP 10 (8-16); ASPARTATE AMINO TRANSFERASE 33 IU/L (15-46); BILIRUBIN,INDIRECT 0.2 mg/dl (0-1.1); BILIRUBIN,TOTAL 0.2 mg/dl (0.2-1.3); BLOOD UREA NITROGEN 11 mg/dl (7-20); CALCIUM 7.3 mg/dl (8.4-10.2); CARBON DIOXIDE 26 mmol/L (21-31); CHLORIDE 105 mmol/L (97-110); CREATININE 0.63 mg/dl (0.44-1.00); GLUCOSE 129 mg/dl (70-220); POTASSIUM 4.7 mmol/L (3.5-5.1); SODIUM 136 mmol/L (135-144); TOTAL PROTEIN 4.9 g/dl (6.1-8.1)
[2017-10-25 11:31] LABS: ANISOCYTOSIS 1+ (0-0); BAND NEUTROPHILS % (M) 2 % (0-4); BASOPHILS % (M) 1 % (0-2); BURR CELLS 1+ (0-0); EOSINOPHILS % (M) 1 % (0-7); GIANT THROMBO% (M) 20 % (0-0); LYMPHOCYTES % (M) 24 % (15-51); MONOCYTES % (M) 10 % (0-11); OVALOCYTES 1+ (0-0); PLATELET ESTIMATE DECREASED; POIKILOCYTOSIS 2+ (0-0); REACTIVE LYMPHOCYTES% (M) 1 % (0-0); SEG NEUT #M 0.2 10^3/ul (1.6-7.5); SEGMENTED NEUTROPHILS (M) % 62 % (39-77); SMUDGE%M 11 % (0-0)
[2017-10-25] MEDS: LEVOFLOXACIN 500MG/D5W (PMX) 100 ML IVPB (15:39)
[2017-10-25] MEDS: FILGRASTIM 480 MCG INJ SC (17:18)
[2017-10-25 23:39] LABS: VANCOMYCIN,TROUGH 10.7 ug/ml (10.0-20.0)
[2017-10-26] MEDS: VANCOMYCIN 750 MG in DEXTROSE 5% 150 ML IVPB (00:32)
[2017-10-26 06:34] LABS: WHITE BLOOD COUNT 0.5 10^3/ul (4.8-10.8)
[2017-10-26 06:34] LABS: ABNORMAL IP MESSAGE 1; HEMATOCRIT 23.7 % (37.0-47.0); HEMOGLOBIN 7.8 g/dl (12.0-16.0); MEAN CORPUSCULAR HEMOGLOBIN 27.1 pg (29.0-33.0); MEAN CORPUSCULAR HGB CONC 32.9 g/dl (32.0-37.0); MEAN CORPUSCULAR VOLUME 82.3 fl (82.0-101.0); MEAN PLATELET VOLUME 9.9 fl (7.4-10.4); PLATELET COUNT 165 10^3/UL (140-415); RED BLOOD COUNT 2.88 10^6/ul (4.20-5.40); RED CELL DISTRIBUTION WIDTH 16.1 % (11.5-14.5)
[2017-10-26 06:35] LABS: ADD MAN DIFF? YES; POSITIVE DIFF @See below
[2017-10-26 06:52] LABS: ALANINE AMINOTRANSFERASE 23 IU/L (13-69); ALBUMIN 2.7 g/dl (3.3-4.9); ALKALINE PHOSPHATASE 82 IU/L (42-121); ANION GAP 9 (8-16); ASPARTATE AMINO TRANSFERASE 25 IU/L (15-46); BILIRUBIN,INDIRECT 0.2 mg/dl (0-1.1); BILIRUBIN,TOTAL 0.2 mg/dl (0.2-1.3); BLOOD UREA NITROGEN 10 mg/dl (7-20); CARBON DIOXIDE 27 mmol/L (21-31); CHLORIDE 103 mmol/L (97-110); CREATININE 0.58 mg/dl (0.44-1.00); GLUCOSE 153 mg/dl (70-220); POTASSIUM 4.2 mmol/L (3.5-5.1); SODIUM 135 mmol/L (135-144); TOTAL PROTEIN 5.4 g/dl (6.1-8.1)
[2017-10-26] MEDS: FERROUS SULFATE (EC) 325 MG TAB PO (08:56)
[2017-10-26] MEDS: DOCUSATE SODIUM 100 MG CAP PO (08:56)
[2017-10-26] MEDS: POLYETHYLENE GLYCOL 17 GM PACKET PO (08:56)
[2017-10-26] MEDS: DULOXETINE 30 MG CAP DR PO ×2 (08:56→09:00)
[2017-10-26] MEDS: ALLOPURINOL 300 MG TAB PO (08:56)
[2017-10-26] MEDS: predniSONE 50 MG TAB PO ×2 (08:56→21:44)
[2017-10-26] MEDS: CEFEPIME 1GM/50 ML (PMX) 50 ML IVPB (08:56)
[2017-10-26] MEDS: MULTIVITAMINS THERAPEUTIC TAB PO (08:57)
[2017-10-26] MEDS: ANASTROZOLE 1 MG TAB PO (08:57)
[2017-10-26] MEDS: VANCOMYCIN 1 GM 250 ML IVPB (12:47)
[2017-10-26] MEDS: CEFTRIAXONE 1 GM/50 ML (PMX) 50 ML IVPB (16:04)
[2017-10-26] MEDS: FILGRASTIM 480 MCG INJ SC (16:05)
[2017-10-27 06:59] LABS: WHITE BLOOD COUNT 0.7 10^3/ul (4.8-10.8)
[2017-10-27 06:59] LABS: ABNORMAL IP MESSAGE 1; HEMATOCRIT 24.1 % (37.0-47.0); HEMOGLOBIN 7.9 g/dl (12.0-16.0); MEAN CORPUSCULAR HEMOGLOBIN 27.2 pg (29.0-33.0); MEAN CORPUSCULAR HGB CONC 32.8 g/dl (32.0-37.0); MEAN CORPUSCULAR VOLUME 83.1 fl (82.0-101.0); MEAN PLATELET VOLUME 10.9 fl (7.4-10.4); PLATELET COUNT 166 10^3/UL (140-415); RED CELL DISTRIBUTION WIDTH 15.8 % (11.5-14.5)
[2017-10-27 07:10] LABS: ADD MAN DIFF? YES; POSITIVE DIFF @See below
[2017-10-27 07:39] LABS: ANION GAP 11 (8-16); BLOOD UREA NITROGEN 10 mg/dl (7-20); CALCIUM 8.3 mg/dl (8.4-10.2); CARBON DIOXIDE 27 mmol/L (21-31); CHLORIDE 104 mmol/L (97-110); CREATININE 0.56 mg/dl (0.44-1.00); GLUCOSE 123 mg/dl (70-220); SODIUM 138 mmol/L (135-144)
[2017-10-27] MEDS: LIDOCAINE 1% (MDV) 10 ML INJ (09:26)
[2017-10-27 09:29] LABS: ANISOCYTOSIS 2+ (0-0); BAND NEUTROPHILS #M 0.1 10^3/ul (0.0-0.6); BAND NEUTROPHILS % (M) 21 % (0-4); GIANT THROMBO% (M) 3 % (0-0); HYPOCHROMASIA 2+ (0-0); LYMPHOCYTES #M 0.2 10^3/ul (0.8-2.9); LYMPHOCYTES % (M) 29 % (15-51); MICROCYTOSIS 1+ (0-0); MONOCYTE #M 0.1 10^3/ul (0.3-0.9); MONOCYTES % (M) 22 % (0-11); PLATELET ESTIMATE NORMAL; POIKILOCYTOSIS 1+ (0-0); POLYCHROMASIA 3+ (0-0); SEG NEUT #M 0.2 10^3/ul (1.6-7.5); SEGMENTED NEUTROPHILS (M) % 29 % (39-77); SMUDGE%M 8 % (0-0)
[2017-10-27 10:28] LABS: FLD RBC 0 /uL; FLD WBC 14 /cmm
[2017-10-27 10:40] LABS: FLUID TYPE THORACENTESIS FLUID
[2017-10-27 10:41] LABS: FLUID GLUCOSE 120 mg/dl; FLUID TYPE THORACENTESIS FLUID
[2017-10-27 11:02] LABS: FLUID LD 2400 U/L
[2017-10-27 11:07] LABS: FLD TYPE THORACENTHESIS
[2017-10-27 11:07] LABS: FLD CLARITY SLIGHTLY CLOUDY
[2017-10-27 11:08] LABS: FLD COLOR YELLOW
[2017-10-27 11:31] LABS: PATH REVIEW CH
[2017-10-27] MEDS: MULTIVITAMINS THERAPEUTIC TAB PO (13:24)
[2017-10-27] MEDS: FERROUS SULFATE (EC) 325 MG TAB PO (13:24)
[2017-10-27] MEDS: ALLOPURINOL 300 MG TAB PO (13:24)
[2017-10-27] MEDS: DOCUSATE SODIUM 100 MG CAP PO (13:24)
[2017-10-27] MEDS: DULOXETINE 30 MG CAP DR PO (13:24)
[2017-10-27] MEDS: predniSONE 50 MG TAB PO ×2 (13:24→20:58)
[2017-10-27] MEDS: POLYETHYLENE GLYCOL 17 GM PACKET PO (13:24)
[2017-10-27] MEDS: ANASTROZOLE 1 MG TAB PO (13:27)
[2017-10-27] MEDS: CEFTRIAXONE 1 GM/50 ML (PMX) 50 ML IVPB (15:59)
[2017-10-27] MEDS: FILGRASTIM 480 MCG INJ SC (17:59)
[2017-10-28 05:41] LABS: WHITE BLOOD COUNT 2.4 10^3/ul (4.8-10.8)
[2017-10-28 05:41] LABS: ABNORMAL IP MESSAGE 1; HEMATOCRIT 25.5 % (37.0-47.0); HEMOGLOBIN 8.1 g/dl (12.0-16.0); MEAN CORPUSCULAR HGB CONC 31.8 g/dl (32.0-37.0); PLATELET COUNT 152 10^3/UL (140-415); RED CELL DISTRIBUTION WIDTH 16.6 % (11.5-14.5)
[2017-10-28 05:45] LABS: POSITIVE DIFF @See below
[2017-10-28 05:46] LABS: ADD MAN DIFF? YES
[2017-10-28 06:01] LABS: ANION GAP 13 (8-16); BLOOD UREA NITROGEN 16 mg/dl (7-20); CALCIUM 7.9 mg/dl (8.4-10.2); CARBON DIOXIDE 26 mmol/L (21-31); CHLORIDE 101 mmol/L (97-110); CREATININE 0.65 mg/dl (0.44-1.00); GLUCOSE 129 mg/dl (70-220); POTASSIUM 4.2 mmol/L (3.5-5.1); SODIUM 136 mmol/L (135-144)
[2017-10-28 06:04] LABS: LACTATE DEHYDROGENASE 1721 IU/L (313-618)
[2017-10-28] MEDS: DULOXETINE 30 MG CAP DR PO (09:00)
[2017-10-28 09:03] LABS: ANISOCYTOSIS 1+ (0-0); BAND NEUTROPHILS #M 0.6 10^3/ul (0.0-0.6); BAND NEUTROPHILS % (M) 29 % (0-4); ERYTHROBLAST% (NRBC) (M) 3 % (0-0); GIANT THROMBO% (M) 19 % (0-0); LYMPHOCYTES #M 0.1 10^3/ul (0.8-2.9); LYMPHOCYTES % (M) 8 % (15-51); MICROCYTOSIS 1+ (0-0); MONOCYTE #M 0.4 10^3/ul (0.3-0.9); MONOCYTES % (M) 17 % (0-11); PLATELET ESTIMATE NORMAL; POLYCHROMASIA 1+ (0-0); REACTIVE LYMPHOCYTES% (M) 1 % (0-0); SEG NEUT #M 1.1 10^3/ul (1.6-7.5); SEGMENTED NEUTROPHILS (M) % 45 % (39-77); SMUDGE%M 10 % (0-0)
[2017-10-28] MEDS: FERROUS SULFATE (EC) 325 MG TAB PO (10:02)
[2017-10-28] MEDS: ALLOPURINOL 300 MG TAB PO (10:02)
[2017-10-28] MEDS: DOCUSATE SODIUM 100 MG CAP PO (10:02)
[2017-10-28] MEDS: predniSONE 50 MG TAB PO ×2 (10:03→21:33)
[2017-10-28] MEDS: MULTIVITAMINS THERAPEUTIC TAB PO (10:04)
[2017-10-28] MEDS: ANASTROZOLE 1 MG TAB PO (10:07)
[2017-10-28] MEDS: BISACODYL 10 MG SUPP PR (10:51)
[2017-10-28] MEDS: POLYETHYLENE GLYCOL 17 GM PACKET PO (12:54)
[2017-10-28] MEDS: CEFTRIAXONE 1 GM/50 ML (PMX) 50 ML IVPB (16:33)
[2017-10-28] MEDS: FILGRASTIM 480 MCG INJ SC (16:35)
[2017-10-29 05:33] LABS: ABNORMAL IP MESSAGE 1; HEMATOCRIT 26.7 % (37.0-47.0); HEMOGLOBIN 8.5 g/dl (12.0-16.0); MEAN CORPUSCULAR HEMOGLOBIN 27.4 pg (29.0-33.0); MEAN CORPUSCULAR HGB CONC 31.8 g/dl (32.0-37.0); MEAN CORPUSCULAR VOLUME 86.1 fl (82.0-101.0); MEAN PLATELET VOLUME 10.5 fl (7.4-10.4); NUCLEATED RED BLOOD CELLS% 0.2 /100WBC (0.0-0.0); PLATELET COUNT 165 10^3/UL (140-415); RED CELL DISTRIBUTION WIDTH 16.4 % (11.5-14.5)
[2017-10-29 05:49] LABS: ANION GAP 11 (8-16); BLOOD UREA NITROGEN 17 mg/dl (7-20); CALCIUM 8.2 mg/dl (8.4-10.2); CARBON DIOXIDE 29 mmol/L (21-31); CHLORIDE 100 mmol/L (97-110); CREATININE 0.69 mg/dl (0.44-1.00); GLUCOSE 128 mg/dl (70-220); POTASSIUM 4.6 mmol/L (3.5-5.1); SODIUM 135 mmol/L (135-144)
[2017-10-29 05:59] LABS: POSITIVE DIFF @See below
[2017-10-29 06:00] LABS: ADD MAN DIFF? YES
[2017-10-29] MEDS ORDERED: LIDOCAINE 2% (SDV) 5 ML INJ (07:00)
[2017-10-29 08:39] LABS: ANISOCYTOSIS 1+ (0-0); BAND NEUTROPHILS #M 1.6 10^3/ul (0.0-0.6); BAND NEUTROPHILS % (M) 16 % (0-4); ERYTHROBLAST% (NRBC) (M) 1 % (0-0); GIANT THROMBO% (M) 8 % (0-0); LYMPHOCYTES #M 0.5 10^3/ul (0.8-2.9); LYMPHOCYTES % (M) 5 % (15-51); METAMYELOCYTES #M 0.1 10^3/ul (0.0-0.0); METAMYELOCYTES %M 1 % (0-0); MONOCYTE #M 1.4 10^3/ul (0.3-0.9); MONOCYTES % (M) 14 % (0-11); MYELOCYTES #M 0.1 10^3/ul (0.0-0.0); MYELOCYTES % (M) 1 % (0-0); PLATELET ESTIMATE NORMAL; POLYCHROMASIA 1+ (0-0); REACTIVE LYMPHOCYTES #M 0.1 10^3/ul (0.0-0.0); REACTIVE LYMPHOCYTES% (M) 1 % (0-0); SEG NEUT #M 6.4 10^3/ul (1.6-7.5); SEGMENTED NEUTROPHILS (M) % 62 % (39-77); SMUDGE%M 6 % (0-0)
[2017-10-29] MEDS: ALLOPURINOL 300 MG TAB PO (09:00)
[2017-10-29] MEDS: predniSONE 50 MG TAB PO ×2 (09:00→21:54)
[2017-10-29] MEDS: DULOXETINE 30 MG CAP DR PO (09:00)
[2017-10-29] MEDS: ANASTROZOLE 1 MG TAB PO (09:00)
[2017-10-29] MEDS: POLYETHYLENE GLYCOL 17 GM PACKET PO (09:00)
[2017-10-29] MEDS: MULTIVITAMINS THERAPEUTIC TAB PO (09:00)
[2017-10-29] MEDS: FERROUS SULFATE (EC) 325 MG TAB PO (09:00)
[2017-10-29] MEDS: DOCUSATE SODIUM 100 MG CAP PO (09:00)
[2017-10-29] MEDS: CEFTRIAXONE 1 GM/50 ML (PMX) 50 ML IVPB (16:14)
[2017-10-29] MEDS: FILGRASTIM 480 MCG INJ SC (16:33)
[2017-10-29 16:42] LABS: BETA-2 MICROGLOBULIN 3.58 mg/L (< OR = 2.51)
[2017-10-29] MEDS ORDERED: SUCCINYLCHOLINE CHLORIDE 100 MG/5 ML SYG IV (17:41)
[2017-10-29] MEDS ORDERED: PROPOFOL 20 ML (17:41)
[2017-10-29] MEDS ORDERED: GLYCOPYRROLATE 0.4 MG INJ ×2 (17:41→18:09)
[2017-10-29] MEDS ORDERED: ROCURONIUM 50 MG INJ (17:41)
[2017-10-29] MEDS ORDERED: NEOSTIGMINE 3 MG/3 ML SYRINGE (17:41)
[2017-10-29] MEDS ORDERED: OXYCODONE/ACETAMINOPHEN (5/325) TAB PO ×2 (18:00)
[2017-10-29] MEDS ORDERED: MIDAZOLAM 1 MG/ML 2 ML INJ IV (18:00)
[2017-10-29] MEDS ORDERED: hydrALAzine 20 MG INJ IV (18:00)
[2017-10-29] MEDS ORDERED: LABETALOL HCL 20MG INJ IV (18:00)
[2017-10-29] MEDS ORDERED: HYDROmorphONE (0.2 MG/ML) 10ML SYG IV ×3 (18:00)
[2017-10-29] MEDS ORDERED: METOCLOPRAMIDE 10 MG INJ (18:00)
[2017-10-29] MEDS ORDERED: METOCLOPRAMIDE 10 MG INJ IV (18:00)
[2017-10-29] MEDS ORDERED: DIPHENHYDRAMINE 50 MG INJ IV (18:00)
[2017-10-29] MEDS ORDERED: ONDANSETRON 4 MG INJ (18:00)
[2017-10-29] MEDS ORDERED: ONDANSETRON 4 MG INJ IV (18:00)
[2017-10-29] MEDS ORDERED: FENTAnyl 50 MCG/ML VIAL IV ×3 (18:00)
[2017-10-29] MEDS: IOHEXOL 300MG/ML 30 ML BTL (18:10)
[2017-10-29] MEDS ORDERED: EPHEDrine SULFATE 50 MG/5 ML SYG (18:10)
[2017-10-29] MEDS: MEPERIDINE 25 MG INJ IV (19:26)
[2017-10-29] MEDS: EPHEDrine SULFATE 50 MG/5 ML SYG IV (19:39)
[2017-10-29] MEDS: SOD CHLORIDE 0.9% 1,000 ML IV (22:38)
[2017-10-29 22:57] LABS: ABNORMAL IP MESSAGE 1; MEAN CORPUSCULAR HEMOGLOBIN 27.2 pg (29.0-33.0); MEAN CORPUSCULAR HGB CONC 31.1 g/dl (32.0-37.0); MEAN CORPUSCULAR VOLUME 87.6 fl (82.0-101.0); MEAN PLATELET VOLUME 10.2 fl (7.4-10.4); NUCLEATED RED BLOOD CELLS% 0.7 /100WBC (0.0-0.0); PLATELET COUNT 101 10^3/UL (140-415); RED BLOOD COUNT 2.17 10^6/ul (4.20-5.40); RED CELL DISTRIBUTION WIDTH 17.3 % (11.5-14.5)
[2017-10-29 22:57] LABS: WHITE BLOOD COUNT 4.2 10^3/ul (4.8-10.8)
[2017-10-29] MEDS ORDERED: VANCOMYCIN IV PER PHARMACY XX (23:00)
[2017-10-29 23:02] LABS: ADD MAN DIFF? YES; POSITIVE DIFF @See below
[2017-10-29 23:04] LABS: HEMOGLOBIN 5.9 g/dl (12.0-16.0)
[2017-10-29 23:17] LABS: ALANINE AMINOTRANSFERASE 25 IU/L (13-69); ALKALINE PHOSPHATASE 30 IU/L (42-121); ANION GAP 6 (8-16); ASPARTATE AMINO TRANSFERASE < 8 IU/L (15-46); BLOOD UREA NITROGEN 8 mg/dl (7-20); CARBON DIOXIDE 15 mmol/L (21-31); CHLORIDE 123 mmol/L (97-110); CREATININE 0.46 mg/dl (0.44-1.00); SODIUM 142 mmol/L (135-144)
[2017-10-29 23:18] LABS: ALBUMIN < 1.0 g/dl (3.3-4.9)
[2017-10-29 23:21] LABS: CALCIUM 3.7 mg/dl (8.4-10.2); GLUCOSE 44 mg/dl (70-220); POTASSIUM 1.6 mmol/L (3.5-5.1)
[2017-10-29 23:50] LABS: ANISOCYTOSIS 2+ (0-0); BAND NEUTROPHILS #M 0.9 10^3/ul (0.0-0.6); BAND NEUTROPHILS % (M) 23 % (0-4); ERYTHROBLAST% (NRBC) (M) 1 % (0-0); GIANT THROMBO% (M) 1 % (0-0); HYPOCHROMASIA 1+ (0-0); LYMPHOCYTES % (M) 2 % (15-51); MICROCYTOSIS 2+ (0-0); MONOCYTE #M 0.4 10^3/ul (0.3-0.9); MONOCYTES % (M) 10 % (0-11); MYELOCYTES #M 0.1 10^3/ul (0.0-0.0); MYELOCYTES % (M) 3 % (0-0); PLATELET ESTIMATE DECREASED; POIKILOCYTOSIS 1+ (0-0); POLYCHROMASIA 3+ (0-0); PROMYELOCYTES % (M) 1 % (0-0); SEG NEUT #M 2.6 10^3/ul (1.6-7.5); SEGMENTED NEUTROPHILS (M) % 61 % (39-77); SMUDGE%M 11 % (0-0)
[2017-10-30 00:02] LABS: ABNORMAL IP MESSAGE 1; HEMATOCRIT 24.9 % (37.0-47.0); HEMOGLOBIN 7.9 g/dl (12.0-16.0); MEAN CORPUSCULAR HEMOGLOBIN 27.9 pg (29.0-33.0); MEAN CORPUSCULAR HGB CONC 31.7 g/dl (32.0-37.0); MEAN PLATELET VOLUME 9.4 fl (7.4-10.4); NUCLEATED RED BLOOD CELLS% 0.3 /100WBC (0.0-0.0); PLATELET COUNT 113 10^3/UL (140-415); RED BLOOD COUNT 2.83 10^6/ul (4.20-5.40); RED CELL DISTRIBUTION WIDTH 17.3 % (11.5-14.5)
[2017-10-30 00:02] LABS: WHITE BLOOD COUNT 5.9 10^3/ul (4.8-10.8)
[2017-10-30] MEDS: SOD CHLORIDE 0.9% 1,000 ML IV ×3 (00:04→16:41)
[2017-10-30 00:10] LABS: ADD MAN DIFF? YES; POSITIVE DIFF @See below
[2017-10-30 00:19] LABS: ALANINE AMINOTRANSFERASE 23 IU/L (13-69); ALBUMIN 2.1 g/dl (3.3-4.9); ALKALINE PHOSPHATASE 64 IU/L (42-121); ANION GAP 9 (8-16); ASPARTATE AMINO TRANSFERASE 18 IU/L (15-46); BILIRUBIN,INDIRECT 0.1 mg/dl (0-1.1); BILIRUBIN,TOTAL 0.1 mg/dl (0.2-1.3); BLOOD UREA NITROGEN 16 mg/dl (7-20); CALCIUM 7.1 mg/dl (8.4-10.2); CARBON DIOXIDE 25 mmol/L (21-31); CHLORIDE 103 mmol/L (97-110); CREATININE 0.88 mg/dl (0.44-1.00); GLUCOSE 96 mg/dl (70-220); POTASSIUM 3.1 mmol/L (3.5-5.1); SODIUM 134 mmol/L (135-144)
[2017-10-30 00:30] LABS: LACTIC ACID 4.5 mmol/L (0.5-2.0)
[2017-10-30 01:14] LABS: IMMEDIATE SPIN CROSSMATCH 1 2
[2017-10-30 01:30] LABS: ANISOCYTOSIS 2+ (0-0); BAND NEUTROPHILS #M 1.7 10^3/ul (0.0-0.6); BAND NEUTROPHILS % (M) 29 % (0-4); ERYTHROBLAST% (NRBC) (M) 1 % (0-0); GIANT THROMBO% (M) 1 % (0-0); HYPOCHROMASIA 2+ (0-0); METAMYELOCYTES #M 0.1 10^3/ul (0.0-0.0); METAMYELOCYTES %M 2 % (0-0); MICROCYTOSIS 2+ (0-0); MONOCYTE #M 0.6 10^3/ul (0.3-0.9); MONOCYTES % (M) 11 % (0-11); PLATELET ESTIMATE DECREASED; POIKILOCYTOSIS 1+ (0-0); POLYCHROMASIA 3+ (0-0); REACTIVE LYMPHOCYTES #M 0.1 10^3/ul (0.0-0.0); REACTIVE LYMPHOCYTES% (M) 2 % (0-0); SEG NEUT #M 3.4 10^3/ul (1.6-7.5); SEGMENTED NEUTROPHILS (M) % 56 % (39-77); SMUDGE%M 3 % (0-0)
[2017-10-30] MEDS: POTASSIUM CHLORIDE 50 ML IVPB ×2 (01:35→05:18)
[2017-10-30] MEDS: DIPHENHYDRAMINE 50 MG INJ IV (02:01)
[2017-10-30] MEDS: ACETAMINOPHEN 325 MG TAB PO (02:01)
[2017-10-30] MEDS ORDERED: PHENYLephrine 20MG IN 250 ML 250 ML IV (03:30)
[2017-10-30] MEDS: ANASTROZOLE 1 MG TAB PO (08:27)
[2017-10-30] MEDS: DULOXETINE 30 MG CAP DR PO (08:28)
[2017-10-30] MEDS: DOCUSATE SODIUM 100 MG CAP PO (08:28)
[2017-10-30] MEDS: predniSONE 50 MG TAB PO ×2 (08:28→21:07)
[2017-10-30] MEDS: ALLOPURINOL 300 MG TAB PO (08:28)
[2017-10-30] MEDS: POLYETHYLENE GLYCOL 17 GM PACKET PO (08:28)
[2017-10-30] MEDS: FERROUS SULFATE (EC) 325 MG TAB PO (08:28)
[2017-10-30] MEDS: MULTIVITAMINS THERAPEUTIC TAB PO (08:28)
[2017-10-30 12:22] LABS: WHITE BLOOD COUNT 15.9 10^3/ul (4.8-10.8)
[2017-10-30 12:22] LABS: ABNORMAL IP MESSAGE 1; HEMATOCRIT 33.1 % (37.0-47.0); HEMOGLOBIN 10.9 g/dl (12.0-16.0); MEAN CORPUSCULAR HEMOGLOBIN 28.2 pg (29.0-33.0); MEAN CORPUSCULAR HGB CONC 32.9 g/dl (32.0-37.0); MEAN CORPUSCULAR VOLUME 85.5 fl (82.0-101.0); MEAN PLATELET VOLUME 10.2 fl (7.4-10.4); PLATELET COUNT 113 10^3/UL (140-415); RED BLOOD COUNT 3.87 10^6/ul (4.20-5.40); RED CELL DISTRIBUTION WIDTH 16.6 % (11.5-14.5)
[2017-10-30 12:29] LABS: POSITIVE DIFF @See below
[2017-10-30 12:30] LABS: ADD MAN DIFF? YES
[2017-10-30 12:43] LABS: ANION GAP 14 (8-16); BLOOD UREA NITROGEN 15 mg/dl (7-20); CALCIUM 7.3 mg/dl (8.4-10.2); CARBON DIOXIDE 22 mmol/L (21-31); CHLORIDE 105 mmol/L (97-110); CREATININE 0.73 mg/dl (0.44-1.00); GLUCOSE 147 mg/dl (70-220); POTASSIUM 4.8 mmol/L (3.5-5.1); SODIUM 136 mmol/L (135-144)
[2017-10-30 12:46] LABS: LACTIC ACID 3.8 mmol/L (0.5-2.0)
[2017-10-30 13:07] LABS: ANISOCYTOSIS 2+ (0-0); BAND NEUTROPHILS #M 5.8 10^3/ul (0.0-0.6); BAND NEUTROPHILS % (M) 37 % (0-4); ERYTHROBLAST% (NRBC) (M) 1 % (0-0); METAMYELOCYTES #M 0.4 10^3/ul (0.0-0.0); METAMYELOCYTES %M 3 % (0-0); MICROCYTOSIS 2+ (0-0); MONOCYTE #M 0.7 10^3/ul (0.3-0.9); MONOCYTES % (M) 5 % (0-11); PLATELET ESTIMATE DECREASED; POIKILOCYTOSIS 1+ (0-0); POLYCHROMASIA 3+ (0-0); SEG NEUT #M 9.7 10^3/ul (1.6-7.5); SEGMENTED NEUTROPHILS (M) % 55 % (39-77); SMUDGE%M 3 % (0-0)
[2017-10-30] MEDS: VANCOMYCIN 1 GM 250 ML IVPB ×2 (13:35→22:49)
[2017-10-30] MEDS: CEFTRIAXONE 1 GM/50 ML (PMX) 50 ML IVPB (16:40)
[2017-10-30] MEDS: FILGRASTIM 480 MCG INJ SC (21:11)
[2017-10-31] MEDS: SOD CHLORIDE 0.9% 1,000 ML IV ×3 (02:30→23:04)
[2017-10-31 05:58] LABS: ABNORMAL IP MESSAGE 1; HEMATOCRIT 31.4 % (37.0-47.0); HEMOGLOBIN 10.4 g/dl (12.0-16.0); MEAN CORPUSCULAR HEMOGLOBIN 27.8 pg (29.0-33.0); MEAN CORPUSCULAR HGB CONC 33.1 g/dl (32.0-37.0); MEAN PLATELET VOLUME 11.3 fl (7.4-10.4); NUCLEATED RED BLOOD CELLS% 0.1 /100WBC (0.0-0.0); PLATELET COUNT 113 10^3/UL (140-415); RED BLOOD COUNT 3.74 10^6/ul (4.20-5.40); RED CELL DISTRIBUTION WIDTH 16.7 % (11.5-14.5)
[2017-10-31 05:58] LABS: WHITE BLOOD COUNT 31.7 10^3/ul (4.8-10.8)
[2017-10-31 06:12] LABS: ADD MAN DIFF? YES; POSITIVE DIFF @See below
[2017-10-31 06:21] LABS: ANION GAP 10 (8-16); BLOOD UREA NITROGEN 12 mg/dl (7-20); CALCIUM 7.4 mg/dl (8.4-10.2); CARBON DIOXIDE 25 mmol/L (21-31); CHLORIDE 105 mmol/L (97-110); CREATININE 0.58 mg/dl (0.44-1.00); GLUCOSE 141 mg/dl (70-220); MAGNESIUM 1.6 mg/dl (1.7-2.5); PHOSPHORUS 2.2 mg/dl (2.5-4.9); POTASSIUM 4.4 mmol/L (3.5-5.1); SODIUM 136 mmol/L (135-144)
[2017-10-31 06:32] LABS: LACTIC ACID 2.9 mmol/L (0.5-2.0)
[2017-10-31] MEDS: DOCUSATE SODIUM 100 MG CAP PO (09:11)
[2017-10-31] MEDS: ALLOPURINOL 300 MG TAB PO (09:12)
[2017-10-31] MEDS: MULTIVITAMINS THERAPEUTIC TAB PO (09:12)
[2017-10-31] MEDS: POLYETHYLENE GLYCOL 17 GM PACKET PO (09:12)
[2017-10-31] MEDS: DULOXETINE 30 MG CAP DR PO (09:12)
[2017-10-31] MEDS: predniSONE 50 MG TAB PO ×2 (09:12→20:13)
[2017-10-31] MEDS: FERROUS SULFATE (EC) 325 MG TAB PO (09:12)
[2017-10-31] MEDS: ANASTROZOLE 1 MG TAB PO (09:13)
[2017-10-31 10:35] LABS: ANISOCYTOSIS 1+ (0-0); BAND NEUTROPHILS #M 11.7 10^3/ul (0.0-0.6); BAND NEUTROPHILS % (M) 37 % (0-4); GIANT THROMBO% (M) 1 % (0-0); LYMPHOCYTES #M 0.3 10^3/ul (0.8-2.9); LYMPHOCYTES % (M) 1 % (15-51); MONOCYTE #M 0.3 10^3/ul (0.3-0.9); MONOCYTES % (M) 1 % (0-11); MYELOCYTES #M 0.3 10^3/ul (0.0-0.0); MYELOCYTES % (M) 1 % (0-0); PLATELET ESTIMATE DECREASED; POIKILOCYTOSIS 1+ (0-0); POLYCHROMASIA 1+ (0-0); REACTIVE LYMPHOCYTES #M 0.6 10^3/ul (0.0-0.0); REACTIVE LYMPHOCYTES% (M) 2 % (0-0); SEG NEUT #M 22.1 10^3/ul (1.6-7.5); SEGMENTED NEUTROPHILS (M) % 58 % (39-77); SMUDGE%M 13 % (0-0)
[2017-10-31] MEDS: VANCOMYCIN 1 GM 250 ML IVPB ×2 (12:00→23:05)
[2017-10-31] MEDS: CEFTRIAXONE 1 GM/50 ML (PMX) 50 ML IVPB (16:25)
[2017-11-01 05:44] LABS: WHITE BLOOD COUNT 27.2 10^3/ul (4.8-10.8)
[2017-11-01 05:45] LABS: ABNORMAL IP MESSAGE 1; HEMATOCRIT 31.7 % (37.0-47.0); HEMOGLOBIN 10.5 g/dl (12.0-16.0); MEAN CORPUSCULAR HEMOGLOBIN 27.9 pg (29.0-33.0); MEAN CORPUSCULAR HGB CONC 33.1 g/dl (32.0-37.0); MEAN CORPUSCULAR VOLUME 84.3 fl (82.0-101.0); MEAN PLATELET VOLUME 11.3 fl (7.4-10.4); PLATELET COUNT 114 10^3/UL (140-415); RED BLOOD COUNT 3.76 10^6/ul (4.20-5.40); RED CELL DISTRIBUTION WIDTH 17.2 % (11.5-14.5)
[2017-11-01 06:25] LABS: ADD MAN DIFF? YES; POSITIVE DIFF @See below
[2017-11-01 07:14] LABS: LACTIC ACID 2.2 mmol/L (0.5-2.0)
[2017-11-01 08:42] LABS: ANISOCYTOSIS 1+ (0-0); BAND NEUTROPHILS #M 2.9 10^3/ul (0.0-0.6); BAND NEUTROPHILS % (M) 11 % (0-4); GIANT THROMBO% (M) 1 % (0-0); LYMPHOCYTES #M 0.5 10^3/ul (0.8-2.9); LYMPHOCYTES % (M) 2 % (15-51); MONOCYTE #M 0.5 10^3/ul (0.3-0.9); MONOCYTES % (M) 2 % (0-11); PLATELET ESTIMATE DECREASED; POIKILOCYTOSIS 1+ (0-0); POLYCHROMASIA 2+ (0-0); REACTIVE LYMPHOCYTES #M 0.2 10^3/ul (0.0-0.0); REACTIVE LYMPHOCYTES% (M) 1 % (0-0); SEG NEUT #M 23.6 10^3/ul (1.6-7.5); SEGMENTED NEUTROPHILS (M) % 84 % (39-77); SMUDGE%M 2 % (0-0)
[2017-11-01] MEDS: ALLOPURINOL 300 MG TAB PO (09:13)
[2017-11-01] MEDS: predniSONE 50 MG TAB PO ×2 (09:13→20:51)
[2017-11-01] MEDS: DULOXETINE 30 MG CAP DR PO (09:13)
[2017-11-01] MEDS: POLYETHYLENE GLYCOL 17 GM PACKET PO (09:14)
[2017-11-01] MEDS: FERROUS SULFATE (EC) 325 MG TAB PO (09:14)
[2017-11-01] MEDS: MULTIVITAMINS THERAPEUTIC TAB PO (09:14)
[2017-11-01] MEDS: DOCUSATE SODIUM 100 MG CAP PO (09:14)
[2017-11-01] MEDS: ANASTROZOLE 1 MG TAB PO (09:17)
[2017-11-01] MEDS: SOD CHLORIDE 0.9% 1,000 ML IV ×2 (09:17→18:30)
[2017-11-01] MEDS ORDERED: VANCOMYCIN 1.25 GM in SOD CHLORIDE 0.9% 250 ML IVPB (10:00)
[2017-11-01] MEDS: VANCOMYCIN 750 MG in DEXTROSE 5% 150 ML IVPB (13:14)
[2017-11-01] MEDS: CEFTRIAXONE 1 GM/50 ML (PMX) 50 ML IVPB (17:08)
[2017-11-01] MEDS ORDERED: VANCOMYCIN 750 MG in DEXTROSE 5% 150 ML IVPB (21:00)
[2017-11-02] MEDS: SOD CHLORIDE 0.9% 1,000 ML IV ×2 (02:13→12:26)
[2017-11-02 05:23] LABS: WHITE BLOOD COUNT 11.1 10^3/ul (4.8-10.8)
[2017-11-02 05:23] LABS: ABNORMAL IP MESSAGE 1; HEMATOCRIT 34.1 % (37.0-47.0); HEMOGLOBIN 10.9 g/dl (12.0-16.0); MEAN CORPUSCULAR HEMOGLOBIN 27.3 pg (29.0-33.0); MEAN CORPUSCULAR VOLUME 85.5 fl (82.0-101.0); MEAN PLATELET VOLUME 11.4 fl (7.4-10.4); PLATELET COUNT 110 10^3/UL (140-415); RED BLOOD COUNT 3.99 10^6/ul (4.20-5.40); RED CELL DISTRIBUTION WIDTH 17.1 % (11.5-14.5)
[2017-11-02 05:31] LABS: ADD MAN DIFF? YES; POSITIVE DIFF @See below
[2017-11-02 06:02] LABS: ANION GAP 10 (8-16); BLOOD UREA NITROGEN 15 mg/dl (7-20); CALCIUM 7.7 mg/dl (8.4-10.2); CARBON DIOXIDE 27 mmol/L (21-31); CHLORIDE 104 mmol/L (97-110); CREATININE 0.56 mg/dl (0.44-1.00); GLUCOSE 148 mg/dl (70-220); POTASSIUM 3.8 mmol/L (3.5-5.1); SODIUM 137 mmol/L (135-144)
[2017-11-02] MEDS: FERROUS SULFATE (EC) 325 MG TAB PO (08:29)
[2017-11-02] MEDS: DOCUSATE SODIUM 100 MG CAP PO (08:30)
[2017-11-02] MEDS: MULTIVITAMINS THERAPEUTIC TAB PO (08:30)
[2017-11-02] MEDS: DULOXETINE 30 MG CAP DR PO (08:30)
[2017-11-02] MEDS: POLYETHYLENE GLYCOL 17 GM PACKET PO (08:30)
[2017-11-02] MEDS: ALLOPURINOL 300 MG TAB PO (08:30)
[2017-11-02] MEDS: predniSONE 50 MG TAB PO ×2 (08:30→21:05)
[2017-11-02] MEDS: ANASTROZOLE 1 MG TAB PO (08:33)
[2017-11-02 09:05] LABS: BAND NEUTROPHILS #M 0.9 10^3/ul (0.0-0.6); BAND NEUTROPHILS % (M) 9 % (0-4); ERYTHROBLAST% (NRBC) (M) 1 % (0-0); LYMPHOCYTES #M 0.2 10^3/ul (0.8-2.9); LYMPHOCYTES % (M) 2 % (15-51); MYELOCYTES #M 0.3 10^3/ul (0.0-0.0); MYELOCYTES % (M) 3 % (0-0); PLATELET ESTIMATE DECREASED; POIKILOCYTOSIS 3+ (0-0); POLYCHROMASIA 3+ (0-0); SEG NEUT #M 9.6 10^3/ul (1.6-7.5); SEGMENTED NEUTROPHILS (M) % 86 % (39-77); SMUDGE%M 8 % (0-0)
[2017-11-02 12:03] LABS: VANCOMYCIN,TROUGH 7.4 ug/ml (10.0-20.0)
[2017-11-02] MEDS: CEFTRIAXONE 1 GM/50 ML (PMX) 50 ML IVPB (15:48)
[2017-11-02 16:37] LABS: LACTIC ACID 3.7 mmol/L (0.5-2.0)
[2017-11-03] MEDS: SOD CHLORIDE 0.9% 1,000 ML IV (00:35)
[2017-11-03 05:30] LABS: WHITE BLOOD COUNT 8.4 10^3/ul (4.8-10.8)
[2017-11-03 05:30] LABS: ABNORMAL IP MESSAGE 1; HEMATOCRIT 34.3 % (37.0-47.0); HEMOGLOBIN 11.3 g/dl (12.0-16.0); MEAN CORPUSCULAR HEMOGLOBIN 28.3 pg (29.0-33.0); MEAN CORPUSCULAR HGB CONC 32.9 g/dl (32.0-37.0); MEAN PLATELET VOLUME 10.7 fl (7.4-10.4); PLATELET COUNT 106 10^3/UL (140-415); RED BLOOD COUNT 3.99 10^6/ul (4.20-5.40); RED CELL DISTRIBUTION WIDTH 16.9 % (11.5-14.5)
[2017-11-03 05:43] LABS: LACTIC ACID 3.5 mmol/L (0.5-2.0)
[2017-11-03 05:49] LABS: ANION GAP 15 (8-16); BLOOD UREA NITROGEN 16 mg/dl (7-20); CALCIUM 7.9 mg/dl (8.4-10.2); CARBON DIOXIDE 24 mmol/L (21-31); CHLORIDE 104 mmol/L (97-110); CREATININE 0.52 mg/dl (0.44-1.00); GLUCOSE 129 mg/dl (70-220); POTASSIUM 3.7 mmol/L (3.5-5.1); SODIUM 139 mmol/L (135-144)
[2017-11-03 06:05] LABS: ADD MAN DIFF? YES
[2017-11-03] MEDS: POLYETHYLENE GLYCOL 17 GM PACKET PO (08:52)
[2017-11-03] MEDS: FERROUS SULFATE (EC) 325 MG TAB PO (08:52)
[2017-11-03] MEDS: DOCUSATE SODIUM 100 MG CAP PO (08:52)
[2017-11-03] MEDS: predniSONE 50 MG TAB PO (08:53)
[2017-11-03] MEDS: MULTIVITAMINS THERAPEUTIC TAB PO (08:53)
[2017-11-03] MEDS: ALLOPURINOL 300 MG TAB PO (08:53)
[2017-11-03] MEDS: DULOXETINE 30 MG CAP DR PO (08:53)
[2017-11-03] MEDS: ANASTROZOLE 1 MG TAB PO (08:54)
[2017-11-03] MEDS ORDERED: hydrALAzine 20 MG INJ IV (10:00)
[2017-11-03] MEDS: LISINOPRIL 10 MG TAB PO ×2 (10:19→21:23)
[2017-11-03 10:34] LABS: BAND NEUTROPHILS #M 0.3 10^3/ul (0.0-0.6); BAND NEUTROPHILS % (M) 4 % (0-4); LYMPHOCYTES # 0.4 10^3/ul (0.8-2.9); LYMPHOCYTES #M 0.4 10^3/ul (0.8-2.9); LYMPHOCYTES % (M) 5 % (15-51); MONOCYTE # 0.3 10^3/ul (0.3-0.9); MONOCYTE #M 0.3 10^3/ul (0.3-0.9); MONOCYTES % (M) 4 % (0-11); SEG NEUT #M 7.3 10^3/ul (1.7-7.5); SEGMENTED NEUTROPHILS (M) % 87 % (39-77)
[2017-11-03 10:35] LABS: ANISOCYTOSIS 1+ (0-0); HYPOCHROMASIA 1+ (0-0)
[2017-11-03] MEDS: CEFTRIAXONE 1 GM/50 ML (PMX) 50 ML IVPB (15:26)
[2017-11-04 05:58] LABS: ABNORMAL IP MESSAGE 1; HEMATOCRIT 32.3 % (37.0-47.0); HEMOGLOBIN 10.8 g/dl (12.0-16.0); MEAN CORPUSCULAR HEMOGLOBIN 28.3 pg (29.0-33.0); MEAN CORPUSCULAR HGB CONC 33.4 g/dl (32.0-37.0); MEAN CORPUSCULAR VOLUME 84.8 fl (82.0-101.0); MEAN PLATELET VOLUME 11.5 fl (7.4-10.4); PLATELET COUNT 105 10^3/UL (140-415); RED BLOOD COUNT 3.81 10^6/ul (4.20-5.40); RED CELL DISTRIBUTION WIDTH 17.2 % (11.5-14.5)
[2017-11-04 05:58] LABS: WHITE BLOOD COUNT 8.4 10^3/ul (4.8-10.8)
[2017-11-04 06:07] LABS: ADD MAN DIFF? YES; POSITIVE DIFF @See below
[2017-11-04 06:29] LABS: ANION GAP 10 (8-16); BLOOD UREA NITROGEN 15 mg/dl (7-20); CALCIUM 8.1 mg/dl (8.4-10.2); CARBON DIOXIDE 32 mmol/L (21-31); CHLORIDE 101 mmol/L (97-110); CREATININE 0.58 mg/dl (0.44-1.00); GLUCOSE 84 mg/dl (70-220); POTASSIUM 3.5 mmol/L (3.5-5.1); SODIUM 139 mmol/L (135-144)
[2017-11-04] MEDS: DULOXETINE 30 MG CAP DR PO (09:00)
[2017-11-04] MEDS: POLYETHYLENE GLYCOL 17 GM PACKET PO (09:11)
[2017-11-04] MEDS: FERROUS SULFATE (EC) 325 MG TAB PO (09:11)
[2017-11-04] MEDS: MULTIVITAMINS THERAPEUTIC TAB PO (09:11)
[2017-11-04] MEDS: DOCUSATE SODIUM 100 MG CAP PO (09:12)
[2017-11-04] MEDS: ALLOPURINOL 300 MG TAB PO (09:12)
[2017-11-04] MEDS: LISINOPRIL 10 MG TAB PO (09:12)
[2017-11-04] MEDS: ANASTROZOLE 1 MG TAB PO (09:14)
[2017-11-04 13:50] LABS: ANISOCYTOSIS 1+ (0-0); BAND NEUTROPHILS #M 0.7 10^3/ul (0.0-0.6); BAND NEUTROPHILS % (M) 9 % (0-4); ERYTHROBLAST% (NRBC) (M) 1 % (0-0); LYMPHOCYTES #M 0.5 10^3/ul (0.8-2.9); LYMPHOCYTES % (M) 6 % (15-51); MONOCYTES % (M) 1 % (0-11); MYELOCYTES % (M) 1 % (0-0); PLATELET ESTIMATE DECREASED; POIKILOCYTOSIS 2+ (0-0); POLYCHROMASIA 1+ (0-0); SEGMENTED NEUTROPHILS (M) % 83 % (39-77); SMUDGE%M 7 % (0-0)
[2017-11-04] MEDS: CEFTRIAXONE 1 GM/50 ML (PMX) 50 ML IVPB (15:31)
== END 2017-11-04 18:00 | DRG 871 ==
LOC: MS1 10-27 08:42 → ICU 10-29 23:39 → E/R 15:45 → PP2 19:01
PROC: 0T778DZ Dilation of Left Ureter with Intraluminal Device, Via Natural or Artificial Opening Endoscopic (ICD-10-PCS; principal; 2017-10-29 17:30)
PROC: 0W9B3ZZ Drainage of Left Pleural Cavity, Percutaneous Approach (ICD-10-PCS; 2017-10-29 17:35)
PROC: BT14YZZ Fluoroscopy of Kidneys, Ureters and Bladder using Other Contrast (ICD-10-PCS; 2017-10-29 17:35)
PROC: 30233N1 Transfusion of Nonautologous Red Blood Cells into Peripheral Vein, Percutaneous Approach (ICD-10-PCS; 2017-10-29 17:35)
DX: A41.51 Sepsis due to Escherichia coli [E. coli] (principal); D61.810 Antineoplastic chemotherapy induced pancytopenia; E87.2 Acidosis; C79.51 Secondary malignant neoplasm of bone; C83.30 Diffuse large B-cell lymphoma, unspecified site; J90 Pleural effusion, not elsewhere classified; N13.1 Hydronephrosis with ureteral stricture, not elsewhere classified; R65.20 Severe sepsis without septic shock; N30.90 Cystitis, unspecified without hematuria; D53.9 Nutritional anemia, unspecified; C50.919 Malignant neoplasm of unspecified site of unspecified female breast; I10 Essential (primary) hypertension; R50.81 Fever presenting with conditions classified elsewhere; R09.02 Hypoxemia
CPT/HCPCS: 32555; 36415; 36430; 71045; 74018; 74176; 74420; 80048; 80053; 80202; 81001; 82945; 82962; 83036; 83605; 83615; 83735; 84100; 84145; 84157; 84484; 85025; 85610; 85730; 86850; 86900; 86901; 86920; 87040; 87070; 87081; 87086; 87102; 87116; 88104; 88305; 89051; 93005; 96374; 96375; 99291-25

== ENCOUNTER 2017-11-24 14:09 | Inpatient (IN) | payer MEDICARE, OTHER ==
[2017-11-24 14:47] LABS: ADD MAN DIFF? NO
[2017-11-24 14:50] LABS: ABNORMAL IP MESSAGE 1; BASOPHILS % 0.5 % (0.0-2.0); HEMATOCRIT 30.5 % (37.0-47.0); LYMPHOCYTES # 0.2 10^3/ul (0.8-2.9); LYMPHOCYTES % 2.6 % (15.0-51.0); MEAN CORPUSCULAR HEMOGLOBIN 28.7 pg (29.0-33.0); MEAN CORPUSCULAR HGB CONC 32.8 g/dl (32.0-37.0); MEAN CORPUSCULAR VOLUME 87.6 fl (82.0-101.0); MEAN PLATELET VOLUME 9.6 fl (7.4-10.4); MONOCYTE # 0.3 10^3/ul (0.3-0.9); MONOCYTES % 4.6 % (0.0-11.0); NEUTROPHILS % 81.7 % (39.0-77.0); PLATELET COUNT 165 10^3/UL (140-415); RED BLOOD COUNT 3.48 10^6/ul (4.20-5.40); RED CELL DISTRIBUTION WIDTH 18.8 % (11.5-14.5)
[2017-11-24 14:50] LABS: WHITE BLOOD COUNT 7.3 10^3/ul (4.8-10.8)
[2017-11-24 14:51] LABS: POSITIVE DIFF @See below
[2017-11-24 15:08] LABS: ALANINE AMINOTRANSFERASE 20 IU/L (13-69); ALBUMIN 2.7 g/dl (3.3-4.9); ALBUMIN/GLOBULIN RATIO 1.17; ALKALINE PHOSPHATASE 74 IU/L (42-121); ANION GAP 14 (8-16); ASPARTATE AMINO TRANSFERASE 55 IU/L (15-46); BILIRUBIN,INDIRECT 0.2 mg/dl (0-1.1); BILIRUBIN,TOTAL 0.2 mg/dl (0.2-1.3); BLOOD UREA NITROGEN 24 mg/dl (7-20); CALCIUM 8.4 mg/dl (8.4-10.2); CARBON DIOXIDE 25 mmol/L (21-31); CHLORIDE 102 mmol/L (97-110); CREATININE 0.83 mg/dl (0.44-1.00); GLUCOSE 159 mg/dl (70-220); POTASSIUM 3.6 mmol/L (3.5-5.1); SODIUM 137 mmol/L (135-144)
[2017-11-24 15:09] LABS: INR 1.08; PROTIME 14.1 Sec (11.9-14.9); PT RATIO 1.1
[2017-11-24 15:10] LABS: PARTIAL THROMBOPLASTIN TIME 29.2 Sec (25.0-35.0)
[2017-11-24 15:11] LABS: LACTIC ACID 8.4 mmol/L (0.5-2.0)
[2017-11-24 15:19] LABS: TROPONIN-I 0.021 ng/ml (0.000-0.120)
[2017-11-24] MEDS: SODIUM CHLORIDE 0.9% 1L BAG IV* (15:22)
[2017-11-24] MEDS: CEFEPIME 2GM/50 ML (PMX) 50 ML IVPB (15:23)
[2017-11-24 15:35] LABS: ADD UMIC YES; UR ASCORBIC ACID 40 mg/dL (NEGATIVE); UR BACTERIA FEW /HPF (NONE SEEN); UR BILIRUBIN (Dip) NEGATIVE (NEGATIVE); UR BLOOD (Dip) 2+ mg/dL (NEGATIVE); UR CLARITY SLIGHTLY CLOUDY (CLEAR); UR COLOR YELLOW (YELLOW); UR GLUCOSE (Dip) NEGATIVE (NEGATIVE); UR KETONES (Dip) NEGATIVE (NEGATIVE); UR LEUKOCYTE ESTERASE (Dip) 2+ Leu/ul (NEGATIVE); UR NITRITE (Dip) NEGATIVE (NEGATIVE); UR RBC 140 /HPF (0-5); UR SPECIFIC GRAVITY (Dip) 1.019 (1.003-1.030); UR SQUAMOUS EPITHELIAL CELL FEW /HPF (FEW); UR TOTAL PROTEIN (Dip) 1+ mg/dl (NEGATIVE); UR UROBILINOGEN (Dip) NEGATIVE (NEGATIVE); UR WBC 32 /HPF (0-5)
[2017-11-24] MEDS: VANCOMYCIN 1 GM (PMX) 250 ML IVPB (15:45)
[2017-11-24] MEDS ORDERED: ACETAMINOPHEN 325 MG TAB PO (16:00)
[2017-11-24 16:13] LABS: BAND NEUTROPHILS #M 0.2 10^3/ul (0.0-0.6); BAND NEUTROPHILS % (M) 4 % (0-4); LYMPHOCYTES #M 0.2 10^3/ul (0.8-2.9); LYMPHOCYTES % (M) 4 % (15-51); MONOCYTE #M 0.1 10^3/ul (0.3-0.9); MONOCYTES % (M) 2 % (0-11); OVALOCYTES 1+ (0-0); PLATELET ESTIMATE NORMAL; POIKILOCYTOSIS 1+ (0-0); SEG NEUT #M 6.6 10^3/ul (1.6-7.5); SEGMENTED NEUTROPHILS (M) % 90 % (39-77); SMUDGE%M 6 % (0-0)
[2017-11-24] MEDS: ONDANSETRON 4 MG INJ IV (16:44)
[2017-11-24] MEDS: HYDROmorphONE 1 MG/ML SYG IV (17:58)
[2017-11-24] MEDS: HYDROmorphONE 2 MG/ML SYG IV (18:00)
[2017-11-24 18:05] LABS: LACTIC ACID 6.2 mmol/L (0.5-2.0)
[2017-11-24] MEDS ORDERED: NACL 0.9% 3 ML SYG IV (19:00)
[2017-11-24] MEDS ORDERED: hydrALAzine 20 MG INJ IV (19:00)
[2017-11-24 20:51] LABS: LACTIC ACID 4.9 mmol/L (0.5-2.0)
[2017-11-24] MEDS: SOD CHLORIDE 0.9% 1,000 ML IV (21:50)
[2017-11-24] MEDS: ENOXAPARIN 80 MG/0.8 ML SYG SC (21:52)
[2017-11-24] MEDS: morphine 2 MG INJ IV (22:02)
[2017-11-25] MEDS: PANTOPRAZOLE 40 MG INJ IV (06:20)
[2017-11-25 09:27] LABS: ADD MAN DIFF? NO
[2017-11-25 09:30] LABS: WHITE BLOOD COUNT 5.7 10^3/ul (4.8-10.8)
[2017-11-25 09:30] LABS: ABNORMAL IP MESSAGE 1; BASOPHILS % 0.4 % (0.0-2.0); EOSINOPHILS % 0.2 % (0.0-7.0); HEMATOCRIT 29.1 % (37.0-47.0); LYMPHOCYTES # 0.3 10^3/ul (0.8-2.9); LYMPHOCYTES % 5.3 % (15.0-51.0); MEAN CORPUSCULAR HEMOGLOBIN 27.7 pg (29.0-33.0); MEAN CORPUSCULAR HGB CONC 30.9 g/dl (32.0-37.0); MEAN CORPUSCULAR VOLUME 89.5 fl (82.0-101.0); MEAN PLATELET VOLUME 10.7 fl (7.4-10.4); MONOCYTE # 0.3 10^3/ul (0.3-0.9); MONOCYTES % 4.6 % (0.0-11.0); NEUTROPHIL # 4.5 10^3/ul (1.6-7.5); NEUTROPHILS % 78.3 % (39.0-77.0); PLATELET COUNT 161 10^3/UL (140-415); RED BLOOD COUNT 3.25 10^6/ul (4.20-5.40); RED CELL DISTRIBUTION WIDTH 19.7 % (11.5-14.5)
[2017-11-25] MEDS: ENOXAPARIN 80 MG/0.8 ML SYG SC ×2 (09:32→20:25)
[2017-11-25] MEDS: HYDROCODONE/APAP (5/325) TAB PO ×2 (09:39→20:23)
[2017-11-25 10:00] LABS: POSITIVE DIFF @See below
[2017-11-25 10:01] LABS: ALANINE AMINOTRANSFERASE 21 IU/L (13-69); ALBUMIN 2.6 g/dl (3.3-4.9); ALBUMIN/GLOBULIN RATIO 1.13; ALKALINE PHOSPHATASE 67 IU/L (42-121); ANION GAP 8 (8-16); ASPARTATE AMINO TRANSFERASE 47 IU/L (15-46); BILIRUBIN,INDIRECT 0.5 mg/dl (0-1.1); BILIRUBIN,TOTAL 0.5 mg/dl (0.2-1.3); BLOOD UREA NITROGEN 21 mg/dl (7-20); CALCIUM 7.9 mg/dl (8.4-10.2); CARBON DIOXIDE 28 mmol/L (21-31); CHLORIDE 107 mmol/L (97-110); CREATININE 0.72 mg/dl (0.44-1.00); GLUCOSE 77 mg/dl (70-220); POTASSIUM 3.4 mmol/L (3.5-5.1); SODIUM 140 mmol/L (135-144); TOTAL PROTEIN 4.9 g/dl (6.1-8.1)
[2017-11-25] MEDS: SOD CHLORIDE 0.9% 1,000 ML IV (10:20)
[2017-11-25] MEDS ORDERED: VANCOMYCIN IV PER PHARMACY XX (12:00)
[2017-11-25 12:55] LABS: LACTIC ACID 4.9 mmol/L (0.5-2.0)
[2017-11-25] MEDS: CEFEPIME 1GM/50 ML (PMX) 50 ML IVPB ×2 (14:13→23:12)
[2017-11-25] MEDS: VANCOMYCIN 1.25 GM in SOD CHLORIDE 0.9% 250 ML IVPB (16:08)
[2017-11-25] MEDS: morphine 2 MG INJ IV ×2 (17:49→23:13)
[2017-11-25] MEDS: 1/2 NS + KCL 20 MEQ 1,000 ML IV (18:46)
[2017-11-26] MEDS: VANCOMYCIN 1.25 GM in SOD CHLORIDE 0.9% 250 ML IVPB ×2 (01:10→18:19)
[2017-11-26] MEDS: PANTOPRAZOLE 40 MG INJ IV (05:12)
[2017-11-26 07:13] LABS: WHITE BLOOD COUNT 4.4 10^3/ul (4.8-10.8)
[2017-11-26 07:13] LABS: ABNORMAL IP MESSAGE 1; HEMATOCRIT 28.8 % (37.0-47.0); HEMOGLOBIN 9.2 g/dl (12.0-16.0); MEAN CORPUSCULAR HEMOGLOBIN 28.8 pg (29.0-33.0); MEAN CORPUSCULAR HGB CONC 31.9 g/dl (32.0-37.0); MEAN CORPUSCULAR VOLUME 90.3 fl (82.0-101.0); MEAN PLATELET VOLUME 10.4 fl (7.4-10.4); PLATELET COUNT 137 10^3/UL (140-415); RED BLOOD COUNT 3.19 10^6/ul (4.20-5.40); RED CELL DISTRIBUTION WIDTH 19.6 % (11.5-14.5)
[2017-11-26 07:17] LABS: POSITIVE DIFF @See below
[2017-11-26 07:18] LABS: ADD MAN DIFF? YES
[2017-11-26 07:34] LABS: ANION GAP 10 (8-16); BLOOD UREA NITROGEN 23 mg/dl (7-20); CALCIUM 7.8 mg/dl (8.4-10.2); CARBON DIOXIDE 27 mmol/L (21-31); CHLORIDE 107 mmol/L (97-110); CREATININE 0.79 mg/dl (0.44-1.00); GLUCOSE 60 mg/dl (70-220); POTASSIUM 3.7 mmol/L (3.5-5.1); SODIUM 140 mmol/L (135-144)
[2017-11-26] MEDS: CEFEPIME 1GM/50 ML (PMX) 50 ML IVPB (09:09)
[2017-11-26 09:49] LABS: ANISOCYTOSIS 1+ (0-0); BAND NEUTROPHILS #M 0.3 10^3/ul (0.0-0.6); BAND NEUTROPHILS % (M) 9 % (0-4); LYMPHOCYTES #M 0.2 10^3/ul (0.8-2.9); LYMPHOCYTES % (M) 5 % (15-51); METAMYELOCYTES %M 1 % (0-0); MONOCYTES % (M) 2 % (0-11); PLATELET ESTIMATE DECREASED; POIKILOCYTOSIS 1+ (0-0); POLYCHROMASIA 1+ (0-0); SEG NEUT #M 3.7 10^3/ul (1.6-7.5); SEGMENTED NEUTROPHILS (M) % 83 % (39-77); SMUDGE%M 2 % (0-0)
[2017-11-26] MEDS: 1/2 NS + KCL 20 MEQ 1,000 ML IV (10:10)
[2017-11-26] MEDS: morphine 2 MG INJ IV ×2 (14:26→21:44)
[2017-11-26] MEDS: LIDOCAINE 1% (MDV) 10 ML INJ (16:14)
[2017-11-26] MEDS: MEROPENEM 1 GM/50ML(PMX) 50 ML IVPB ×2 (16:41→21:29)
[2017-11-26] MEDS: HYDROCODONE/APAP (5/325) TAB PO (16:49)
[2017-11-26 20:16] LABS: FLD MN% 94.7 %; FLD PMN% 5.3 %; FLD RBC 12000 /uL; FLD WBC 9107 /cmm
[2017-11-26 20:33] LABS: FLUID TOTAL PROTEIN 2.3 g/dl; FLUID TYPE PLEURAL FLUID
[2017-11-26 20:50] LABS: FLD CLARITY MILKY; FLD COLOR MILKY
[2017-11-26 20:50] LABS: FLD TYPE PLEURAL
[2017-11-26] MEDS: ENOXAPARIN 80 MG/0.8 ML SYG SC (21:33)
[2017-11-26 22:01] LABS: FLUID LD 6187 U/L
[2017-11-27] MEDS: 1/2 NS + KCL 20 MEQ 1,000 ML IV ×2 (04:44→19:30)
[2017-11-27] MEDS: PANTOPRAZOLE 40 MG INJ IV (05:26)
[2017-11-27] MEDS: MEROPENEM 1 GM/50ML(PMX) 50 ML IVPB ×3 (05:26→20:52)
[2017-11-27] MEDS ORDERED: VANCOMYCIN 1.25 GM in SOD CHLORIDE 0.9% 250 ML IVPB (06:00)
[2017-11-27 06:34] LABS: VANCOMYCIN,TROUGH 21.4 ug/ml (10.0-20.0)
[2017-11-27] MEDS: morphine 2 MG INJ IV (14:27)
[2017-11-27] MEDS: VANCOMYCIN 750 MG in SOD CHLORIDE 0.9% 150 ML IVPB (15:12)
[2017-11-27] MEDS: HYDROCODONE/APAP (5/325) TAB PO (18:57)
[2017-11-27] MEDS: morphine LIQ (10 MG/5 ML) CUP PO (21:01)
[2017-11-27] MEDS: ONDANSETRON 4 MG INJ IV (21:02)
[2017-11-28] MEDS: VANCOMYCIN 750 MG in SOD CHLORIDE 0.9% 150 ML IVPB ×2 (01:50→13:32)
[2017-11-28] MEDS: morphine LIQ (10 MG/5 ML) CUP PO ×4 (01:55→21:13)
[2017-11-28] MEDS: 1/2 NS + KCL 20 MEQ 1,000 ML IV (05:00)
[2017-11-28] MEDS: PANTOPRAZOLE 40 MG INJ IV (05:08)
[2017-11-28] MEDS: MEROPENEM 1 GM/50ML(PMX) 50 ML IVPB ×3 (05:09→21:13)
[2017-11-28 06:28] LABS: ABNORMAL IP MESSAGE 1; HEMOGLOBIN 9.7 g/dl (12.0-16.0); MEAN CORPUSCULAR HEMOGLOBIN 28.8 pg (29.0-33.0); MEAN CORPUSCULAR HGB CONC 32.3 g/dl (32.0-37.0); MEAN PLATELET VOLUME 10.8 fl (7.4-10.4); PLATELET COUNT 127 10^3/UL (140-415); RED BLOOD COUNT 3.37 10^6/ul (4.20-5.40); RED CELL DISTRIBUTION WIDTH 19.8 % (11.5-14.5)
[2017-11-28 06:28] LABS: WHITE BLOOD COUNT 3.9 10^3/ul (4.8-10.8)
[2017-11-28 06:54] LABS: ANION GAP 13 (8-16); BLOOD UREA NITROGEN 28 mg/dl (7-20); CARBON DIOXIDE 24 mmol/L (21-31); CHLORIDE 105 mmol/L (97-110); CREATININE 0.88 mg/dl (0.44-1.00); GLUCOSE 85 mg/dl (70-220); POTASSIUM 4.5 mmol/L (3.5-5.1); SODIUM 137 mmol/L (135-144)
[2017-11-28 07:12] LABS: ADD MAN DIFF? YES; POSITIVE DIFF @See below
[2017-11-28 09:45] LABS: ANISOCYTOSIS 1+ (0-0); BAND NEUTROPHILS #M 0.1 10^3/ul (0.0-0.6); BAND NEUTROPHILS % (M) 4 % (0-4); LYMPHOCYTES #M 0.2 10^3/ul (0.8-2.9); LYMPHOCYTES % (M) 6 % (15-51); MICROCYTOSIS 1+ (0-0); MONOCYTE #M 0.1 10^3/ul (0.3-0.9); MONOCYTES % (M) 3 % (0-11); MYELOCYTES % (M) 1 % (0-0); PLATELET ESTIMATE DECREASED; POIKILOCYTOSIS 2+ (0-0); POLYCHROMASIA 2+ (0-0); REACTIVE LYMPHOCYTES% (M) 1 % (0-0); SEG NEUT #M 3.3 10^3/ul (1.6-7.5); SEGMENTED NEUTROPHILS (M) % 85 % (39-77); SMUDGE%M 9 % (0-0)
[2017-11-29] MEDS: VANCOMYCIN 750 MG in SOD CHLORIDE 0.9% 150 ML IVPB (02:26)
[2017-11-29] MEDS: 1/2 NS + KCL 20 MEQ 1,000 ML IV ×2 (04:50→14:44)
[2017-11-29] MEDS: MEROPENEM 1 GM/50ML(PMX) 50 ML IVPB ×2 (05:54→21:05)
[2017-11-29] MEDS: PANTOPRAZOLE 40 MG INJ IV (05:54)
[2017-11-29] MEDS: morphine LIQ (10 MG/5 ML) CUP PO ×3 (06:04→15:00)
[2017-11-29] MEDS: FUROSEMIDE 40 MG INJ IV (09:03)
[2017-11-29 09:59] LABS: WHITE BLOOD COUNT 4.4 10^3/ul (4.8-10.8)
[2017-11-29 09:59] LABS: ABNORMAL IP MESSAGE 1; HEMATOCRIT 31.9 % (37.0-47.0); HEMOGLOBIN 10.4 g/dl (12.0-16.0); MEAN CORPUSCULAR HEMOGLOBIN 29.1 pg (29.0-33.0); MEAN CORPUSCULAR HGB CONC 32.6 g/dl (32.0-37.0); MEAN CORPUSCULAR VOLUME 89.1 fl (82.0-101.0); PLATELET COUNT 113 10^3/UL (140-415); RED BLOOD COUNT 3.58 10^6/ul (4.20-5.40); RED CELL DISTRIBUTION WIDTH 19.5 % (11.5-14.5)
[2017-11-29 10:05] LABS: POSITIVE DIFF @See below
[2017-11-29 10:06] LABS: ADD MAN DIFF? YES
[2017-11-29 10:20] LABS: ALANINE AMINOTRANSFERASE 24 IU/L (13-69); ALBUMIN 2.5 g/dl (3.3-4.9); ALBUMIN/GLOBULIN RATIO 1.25; ALKALINE PHOSPHATASE 79 IU/L (42-121); ANION GAP 17 (8-16); ASPARTATE AMINO TRANSFERASE 59 IU/L (15-46); BILIRUBIN,INDIRECT 0.4 mg/dl (0-1.1); BILIRUBIN,TOTAL 0.4 mg/dl (0.2-1.3); BLOOD UREA NITROGEN 32 mg/dl (7-20); CARBON DIOXIDE 23 mmol/L (21-31); CHLORIDE 100 mmol/L (97-110); CREATININE 1.13 mg/dl (0.44-1.00); GLUCOSE 69 mg/dl (70-220); MAGNESIUM 1.6 mg/dl (1.7-2.5); POTASSIUM 4.8 mmol/L (3.5-5.1); SODIUM 135 mmol/L (135-144); TOTAL PROTEIN 4.5 g/dl (6.1-8.1)
[2017-11-29 10:24] LABS: URIC ACID 5.1 mg/dl (3.1-7.9)
[2017-11-29 10:28] LABS: B-TYPE NATRIURETIC PEPTIDE 421 PG/ML (0-125)
[2017-11-29 11:56] LABS: ANISOCYTOSIS 1+ (0-0); BAND NEUTROPHILS #M 0.5 10^3/ul (0.0-0.6); BAND NEUTROPHILS % (M) 13 % (0-4); ERYTHROBLAST% (NRBC) (M) 1 % (0-0); LYMPHOCYTES #M 0.2 10^3/ul (0.8-2.9); LYMPHOCYTES % (M) 5 % (15-51); METAMYELOCYTES %M 2 % (0-0); MICROCYTOSIS 1+ (0-0); MONOCYTE #M 0.1 10^3/ul (0.3-0.9); MONOCYTES % (M) 4 % (0-11); MYELOCYTES % (M) 1 % (0-0); PLATELET ESTIMATE DECREASED; POIKILOCYTOSIS 1+ (0-0); POLYCHROMASIA 3+ (0-0); REACTIVE LYMPHOCYTES% (M) 1 % (0-0); SEG NEUT #M 3.3 10^3/ul (1.6-7.5); SEGMENTED NEUTROPHILS (M) % 74 % (39-77); SMUDGE%M 18 % (0-0)
[2017-11-29] MEDS: MAGNESIUM SULFATE 2 GM/50 ML 50 ML IVPB (13:05)
[2017-11-29] MEDS: HYDROCODONE/APAP (5/325) TAB PO ×2 (13:39→20:03)
[2017-11-29 13:56] LABS: VANCOMYCIN,TROUGH 32.8 ug/ml (10.0-20.0)
[2017-11-30] MEDS: morphine LIQ (10 MG/5 ML) CUP PO ×3 (01:02→12:06)
[2017-11-30] MEDS: PANTOPRAZOLE 40 MG INJ IV (05:35)
[2017-11-30] MEDS: HYDROCODONE/APAP (5/325) TAB PO ×2 (05:35→07:14)
[2017-11-30 07:09] LABS: WHITE BLOOD COUNT 4.7 10^3/ul (4.8-10.8)
[2017-11-30 07:09] LABS: ABNORMAL IP MESSAGE 1; HEMATOCRIT 31.4 % (37.0-47.0); MEAN CORPUSCULAR HEMOGLOBIN 28.5 pg (29.0-33.0); MEAN CORPUSCULAR HGB CONC 31.8 g/dl (32.0-37.0); MEAN CORPUSCULAR VOLUME 89.5 fl (82.0-101.0); NUCLEATED RED BLOOD CELLS% 0.6 /100WBC (0.0-0.0); PLATELET COUNT 113 10^3/UL (140-415); RED BLOOD COUNT 3.51 10^6/ul (4.20-5.40); RED CELL DISTRIBUTION WIDTH 20.1 % (11.5-14.5)
[2017-11-30 07:21] LABS: ADD MAN DIFF? YES; POSITIVE DIFF @See below
[2017-11-30 07:38] LABS: ANION GAP 17 (8-16); BLOOD UREA NITROGEN 37 mg/dl (7-20); CARBON DIOXIDE 20 mmol/L (21-31); CHLORIDE 103 mmol/L (97-110); CREATININE 1.23 mg/dl (0.44-1.00); GLUCOSE 103 mg/dl (70-220); POTASSIUM 5.1 mmol/L (3.5-5.1); SODIUM 135 mmol/L (135-144)
[2017-11-30] MEDS: 1/2 NS + KCL 20 MEQ 1,000 ML IV (08:00)
[2017-11-30] MEDS: MEROPENEM 1 GM/50ML(PMX) 50 ML IVPB ×2 (08:00→20:55)
[2017-11-30 08:23] LABS: ANISOCYTOSIS 1+ (0-0); BAND NEUTROPHILS #M 0.2 10^3/ul (0.0-0.6); BAND NEUTROPHILS % (M) 5 % (0-4); BASOPHILS % (M) 1 % (0-2); GIANT THROMBO% (M) 3 % (0-0); LYMPHOCYTES #M 0.2 10^3/ul (0.8-2.9); LYMPHOCYTES % (M) 6 % (15-51); MICROCYTOSIS 1+ (0-0); MONOCYTE #M 0.1 10^3/ul (0.3-0.9); MONOCYTES % (M) 4 % (0-11); PLATELET ESTIMATE DECREASED; SEGMENTED NEUTROPHILS (M) % 84 % (39-77); SMUDGE%M 12 % (0-0)
[2017-11-30] MEDS: morphine (ER) 15 MG TAB PO ×2 (12:06→20:59)
[2017-11-30] MEDS: ONDANSETRON 4 MG INJ IV (15:49)
[2017-11-30] MEDS: ENOXAPARIN 80 MG/0.8 ML SYG SC (20:56)
[2017-12-01] MEDS: HYDROCODONE/APAP (5/325) TAB PO (03:01)
[2017-12-01] MEDS: 1/2 NS + KCL 20 MEQ 1,000 ML IV (03:01)
[2017-12-01] MEDS: PANTOPRAZOLE 40 MG INJ IV (05:22)
[2017-12-01 07:06] LABS: ADD MAN DIFF? NO
[2017-12-01 07:12] LABS: WHITE BLOOD COUNT 6.7 10^3/ul (4.8-10.8)
[2017-12-01 07:12] LABS: ABNORMAL IP MESSAGE 1; BASOPHILS % 0.6 % (0.0-2.0); HEMATOCRIT 31.7 % (37.0-47.0); HEMOGLOBIN 9.8 g/dl (12.0-16.0); LYMPHOCYTES # 0.4 10^3/ul (0.8-2.9); LYMPHOCYTES % 6.3 % (15.0-51.0); MEAN CORPUSCULAR HEMOGLOBIN 28.3 pg (29.0-33.0); MEAN CORPUSCULAR HGB CONC 30.9 g/dl (32.0-37.0); MEAN CORPUSCULAR VOLUME 91.6 fl (82.0-101.0); MEAN PLATELET VOLUME 10.9 fl (7.4-10.4); MONOCYTE # 0.3 10^3/ul (0.3-0.9); MONOCYTES % 4.5 % (0.0-11.0); NEUTROPHIL # 4.9 10^3/ul (1.6-7.5); NEUTROPHILS % 73.8 % (39.0-77.0); NUCLEATED RED BLOOD CELLS # 0.1 10^3/ul (0.0-0.0); PLATELET COUNT 127 10^3/UL (140-415); RED BLOOD COUNT 3.46 10^6/ul (4.20-5.40); RED CELL DISTRIBUTION WIDTH 20.1 % (11.5-14.5)
[2017-12-01 07:26] LABS: ANION GAP 20 (8-16); BLOOD UREA NITROGEN 42 mg/dl (7-20); CALCIUM 7.9 mg/dl (8.4-10.2); CARBON DIOXIDE 20 mmol/L (21-31); CHLORIDE 98 mmol/L (97-110); CREATININE 1.91 mg/dl (0.44-1.00); GLUCOSE 101 mg/dl (70-220); SODIUM 132 mmol/L (135-144)
[2017-12-01 07:33] LABS: POTASSIUM 6.4 mmol/L (3.5-5.1)
[2017-12-01] MEDS: SOD CHLORIDE 0.9% 1,000 ML IV ×4 (08:33→19:31)
[2017-12-01] MEDS: morphine (ER) 15 MG TAB PO ×2 (09:00→21:00)
[2017-12-01] MEDS: NA POLYST SULFON 15 GM/60 ML BTL PO ×2 (09:23→14:08)
[2017-12-01] MEDS: ENOXAPARIN 80 MG/0.8 ML SYG SC (09:26)
[2017-12-01] MEDS: MEROPENEM 1 GM/50ML(PMX) 50 ML IVPB ×2 (09:27→23:00)
[2017-12-01] MEDS ORDERED: NORepinephrine 8MG/250 ML (PMX 250 ML (14:01)
[2017-12-01 14:18] LABS: ALANINE AMINOTRANSFERASE 31 IU/L (13-69); ALBUMIN 2.6 g/dl (3.3-4.9); ALBUMIN/GLOBULIN RATIO 1.08; ALKALINE PHOSPHATASE 134 IU/L (42-121); ANION GAP 20 (8-16); ASPARTATE AMINO TRANSFERASE 283 IU/L (15-46); BILIRUBIN,INDIRECT 0.4 mg/dl (0-1.1); BILIRUBIN,TOTAL 0.4 mg/dl (0.2-1.3); BLOOD UREA NITROGEN 41 mg/dl (7-20); CALCIUM 7.5 mg/dl (8.4-10.2); CARBON DIOXIDE 17 mmol/L (21-31); CHLORIDE 104 mmol/L (97-110); CREATININE 2.09 mg/dl (0.44-1.00); GLUCOSE 111 mg/dl (70-220); MAGNESIUM 2.1 mg/dl (1.7-2.5); SODIUM 134 mmol/L (135-144)
[2017-12-01] MEDS: LINEZOLID 600 MG/D5W (PMX) 300 ML IVPB ×2 (14:18→23:04)
[2017-12-01] MEDS: NORepinephrine 8MG/250 ML (PMX 250 ML IV (14:19)
[2017-12-01 14:20] LABS: LACTIC ACID 3.7 mmol/L (0.5-2.0)
[2017-12-01 14:22] LABS: POTASSIUM 6.6 mmol/L (3.5-5.1)
[2017-12-01] MEDS ORDERED: FENTAnyl 50 MCG/ML VIAL (15:01)
[2017-12-01] MEDS ORDERED: CA CHLORIDE 10% 10 ML SYRINGE (15:01)
[2017-12-01] MEDS ORDERED: DEXTROSE 50% 50 ML SYRINGE (15:01)
[2017-12-01] MEDS: CA CHLORIDE 10% 10 ML SYRINGE IV (15:17)
[2017-12-01] MEDS: FENTAnyl 50 MCG/ML VIAL IV ×2 (15:17→22:07)
[2017-12-01] MEDS: DEXTROSE 50% 50 ML SYRINGE IV (16:10)
[2017-12-01] MEDS: INSULIN REGULAR, HUMAN 100 UNIT/1 ML 3ML VIAL IV (16:10)
[2017-12-01] MEDS: SODIUM BICARBONATE (IV ADD) 100 MEQ in DEXTROSE 5% 1,000 ML IV (16:34)
[2017-12-01 19:24] LABS: ANION GAP 20 (8-16); BLOOD UREA NITROGEN 45 mg/dl (7-20); CARBON DIOXIDE 19 mmol/L (21-31); CHLORIDE 100 mmol/L (97-110); CREATININE 2.16 mg/dl (0.44-1.00); GLUCOSE 132 mg/dl (70-220); SODIUM 132 mmol/L (135-144)
[2017-12-01 19:27] LABS: POTASSIUM 6.6 mmol/L (3.5-5.1)
[2017-12-01 19:40] LABS: AADO2 Arterial 63.9 mmHg (7.0-24.0); Allen Test ACCEPTAB; Arterial Base Excess -5.8 mmol/L (-3.0-3); Arterial Blood Gas Oxygen Sat 97.8 mmHG (95.0-98.0); Arterial COHb 0.3 % (0.0-3.0); Arterial Fraction of Oxyhgb 97.1 % (93.0-99.0); Arterial HCO3 18.7 mmol/L (22.0-26.0); Arterial MetHb 0.4 % (0.0-1.5); Arterial Total Hemglobin 10.6 g/dl (12.0-18.0); Arterial pCO2 32.9 mmhg (35-45); MODE NASAL CANNULA; Site Right Radial
[2017-12-01] MEDS: CALCIUM GLUCONATE 10% 1 GM in DEXTROSE 5% 100 ML IVPB (20:59)
[2017-12-02] MEDS: FENTAnyl 50 MCG/ML VIAL IV ×4 (01:45→12:22)
[2017-12-02] MEDS: PANTOPRAZOLE 40 MG INJ IV (05:24)
[2017-12-02 05:37] LABS: ABNORMAL IP MESSAGE 1; HEMATOCRIT 28.6 % (37.0-47.0); HEMOGLOBIN 8.9 g/dl (12.0-16.0); MEAN CORPUSCULAR HEMOGLOBIN 28.4 pg (29.0-33.0); MEAN CORPUSCULAR HGB CONC 31.1 g/dl (32.0-37.0); MEAN CORPUSCULAR VOLUME 91.4 fl (82.0-101.0); MEAN PLATELET VOLUME 10.4 fl (7.4-10.4); NUCLEATED RED BLOOD CELLS% 3.2 /100WBC (0.0-0.0); PLATELET COUNT 127 10^3/UL (140-415); RED BLOOD COUNT 3.13 10^6/ul (4.20-5.40); RED CELL DISTRIBUTION WIDTH 20.7 % (11.5-14.5)
[2017-12-02 05:37] LABS: WHITE BLOOD COUNT 4.7 10^3/ul (4.8-10.8)
[2017-12-02 05:47] LABS: POSITIVE DIFF @See below
[2017-12-02 05:48] LABS: ADD MAN DIFF? YES
[2017-12-02] MEDS: SODIUM BICARBONATE (IV ADD) 100 MEQ in DEXTROSE 5% 1,000 ML IV (06:14)
[2017-12-02 06:53] LABS: ANION GAP 16 (8-16); BLOOD UREA NITROGEN 45 mg/dl (7-20); CALCIUM 7.6 mg/dl (8.4-10.2); CARBON DIOXIDE 20 mmol/L (21-31); CHLORIDE 102 mmol/L (97-110); GLUCOSE 128 mg/dl (70-220); SODIUM 132 mmol/L (135-144)
[2017-12-02 06:56] LABS: POTASSIUM 6.4 mmol/L (3.5-5.1)
[2017-12-02] MEDS ORDERED: ROCURONIUM 50 MG INJ (07:00)
[2017-12-02] MEDS ORDERED: ETOMIDATE 20 MG INJ (07:00)
[2017-12-02] MEDS: DEXTROSE 50% 50 ML SYRINGE IV ×2 (07:31→15:51)
[2017-12-02] MEDS: INSULIN REGULAR, HUMAN 100 UNIT/1 ML 3ML VIAL IVP ×2 (07:32→15:57)
[2017-12-02 07:34] LABS: ANISOCYTOSIS 2+ (0-0); BAND NEUTROPHILS #M 0.4 10^3/ul (0.0-0.6); BAND NEUTROPHILS % (M) 10 % (0-4); ERYTHROBLAST% (NRBC) (M) 2 % (0-0); LYMPHOCYTES #M 0.5 10^3/ul (0.8-2.9); LYMPHOCYTES % (M) 11 % (15-51); MICROCYTOSIS 1+ (0-0); MONOCYTE #M 0.4 10^3/ul (0.3-0.9); MONOCYTES % (M) 10 % (0-11); MYELOCYTES % (M) 1 % (0-0); PLATELET ESTIMATE DECREASED; POIKILOCYTOSIS 1+ (0-0); POLYCHROMASIA 2+ (0-0); SEG NEUT #M 3.3 10^3/ul (1.6-7.5); SEGMENTED NEUTROPHILS (M) % 69 % (39-77); SMUDGE%M 3 % (0-0)
[2017-12-02 07:46] LABS: CARCINOEMBRYONIC ANTIGEN 1.8 ng/ml (0.0-5.0)
[2017-12-02] MEDS: ALBUTEROL 0.5% (NEB) 2.5 MG/0.5 ML AMP INH (07:52)
[2017-12-02 08:23] LABS: AADO2 Arterial 203.6 mmHg (7.0-24.0); Allen Test ACCEPTAB; Arterial Base Excess -7.3 mmol/L (-3.0-3); Arterial Blood Gas Oxygen Sat 98.7 mmHG (95.0-98.0); Arterial COHb 0.3 % (0.0-3.0); Arterial Fraction of Oxyhgb 98.2 % (93.0-99.0); Arterial HCO3 17.8 mmol/L (22.0-26.0); Arterial MetHb 0.2 % (0.0-1.5); Arterial pCO2 34.6 mmhg (35-45); MODE MASK - SIMPLE; Site Right Radial
[2017-12-02] MEDS: CALCIUM GLUCONATE 10% 1 GM in DEXTROSE 5% 100 ML IVPB ×2 (08:24→16:33)
[2017-12-02] MEDS: morphine (ER) 15 MG TAB PO ×3 (08:36→20:59)
[2017-12-02] MEDS: ENOXAPARIN 80 MG/0.8 ML SYG SC (08:48)
[2017-12-02] MEDS: LINEZOLID 600 MG/D5W (PMX) 300 ML IVPB ×2 (09:57→20:59)
[2017-12-02] MEDS: SOD CHLORIDE 0.9% 1,000 ML IV (11:00)
[2017-12-02] MEDS: MEROPENEM 500MG/50 ML (PMX) 50 ML IVPB ×2 (11:00→20:59)
[2017-12-02 13:20] LABS: ADD UMIC YES; UR AMORPHOUS CRYSTAL MANY /HPF (NONE SEEN); UR ASCORBIC ACID NEGATIVE (NEGATIVE); UR BACTERIA MANY /HPF (NONE SEEN); UR BILIRUBIN (Dip) NEGATIVE (NEGATIVE); UR BLOOD (Dip) 3+ mg/dL (NEGATIVE); UR CLARITY TURBID (CLEAR); UR COLOR RED (YELLOW); UR GLUCOSE (Dip) 2+ mg/dL (NEGATIVE); UR KETONES (Dip) TRACE mg/dL (NEGATIVE); UR LEUKOCYTE ESTERASE (Dip) 1+ Leu/ul (NEGATIVE); UR MUCUS FEW /HPF (NONE SEEN); UR NITRITE (Dip) NEGATIVE (NEGATIVE); UR NONSQUAMOUS EPITHELIAL CELL 1 /HPF (NONE SEEN); UR RBC > 182 /HPF (0-5); UR SPECIFIC GRAVITY (Dip) 1.017 (1.003-1.030); UR TOTAL PROTEIN (Dip) 2+ mg/dl (NEGATIVE); UR UROBILINOGEN (Dip) 1+ mg/dL (NEGATIVE); UR WBC > 182 /HPF (0-5)
[2017-12-02] MEDS: ONDANSETRON 4 MG INJ IV (13:53)
[2017-12-02] MEDS: HYDROCODONE/APAP (5/325) TAB PO ×2 (13:53→14:43)
[2017-12-02] MEDS: ACETAMINOPHEN 325 MG TAB PO (13:53)
[2017-12-02 15:12] LABS: ANION GAP 20 (8-16); BLOOD UREA NITROGEN 47 mg/dl (7-20); CALCIUM 7.3 mg/dl (8.4-10.2); CARBON DIOXIDE 19 mmol/L (21-31); CHLORIDE 97 mmol/L (97-110); GLUCOSE 141 mg/dl (70-220); SODIUM 130 mmol/L (135-144)
[2017-12-02 15:24] LABS: CREATININE 2.56 mg/dl (0.44-1.00)
[2017-12-02 15:25] LABS: POTASSIUM 6.1 mmol/L (3.5-5.1)
[2017-12-02] MEDS ORDERED: DEXTROSE 50% 50 ML SYRINGE (15:48)
[2017-12-02] MEDS: ALBUTEROL 0.083% (NEB) 2.5 MG/3 ML AMP HHN (16:07)
[2017-12-02] MEDS: HYDROmorphONE 0.5 MG/0.5 ML SYG IV (16:19)
[2017-12-02] MEDS ORDERED: FUROSEMIDE 40 MG INJ (17:36)
[2017-12-02] MEDS: FUROSEMIDE 40 MG INJ IV (17:42)
[2017-12-02] MEDS ORDERED: MIDAZOLAM (DRIP) 50 mg/50 mL 50 ML IV (18:00)
[2017-12-02] MEDS: ETOMIDATE 20 MG INJ IV (18:08)
[2017-12-02] MEDS: ROCURONIUM BROMIDE 10 MG/ML VIAL IV (18:09)
[2017-12-02] MEDS: MIDAZOLAM (DRIP) 50 mg/50 mL 50 ML IV (18:27)
[2017-12-02 19:48] LABS: AADO2 Arterial 273.4 mmHg (7.0-24.0); Allen Test ACCEPTAB; Arterial Base Excess -8.5 mmol/L (-3.0-3); Arterial Blood Gas Oxygen Sat 99.6 mmHG (95.0-98.0); Arterial COHb 0.3 % (0.0-3.0); Arterial Fraction of Oxyhgb 98.9 % (93.0-99.0); Arterial HCO3 16.6 mmol/L (22.0-26.0); Arterial MetHb 0.4 % (0.0-1.5); Arterial Total Hemglobin 10.9 g/dl (12.0-18.0); Arterial pCO2 32.8 mmhg (35-45); MODE VENT - AC; Site Right Radial
[2017-12-02] MEDS: NORepinephrine 16 MG in SOD CHLORIDE 0.9% 484 ML IV (21:04)
[2017-12-02 21:06] LABS: ANION GAP 18 (8-16); BLOOD UREA NITROGEN 48 mg/dl (7-20); CALCIUM 7.5 mg/dl (8.4-10.2); CARBON DIOXIDE 19 mmol/L (21-31); CHLORIDE 101 mmol/L (97-110); GLUCOSE 114 mg/dl (70-220); PHOSPHORUS 6.5 mg/dl (2.5-4.9); SODIUM 132 mmol/L (135-144)
[2017-12-02 21:12] LABS: POTASSIUM 6.1 mmol/L (3.5-5.1)
[2017-12-02 21:13] LABS: CREATININE 2.85 mg/dl (0.44-1.00)
[2017-12-02] MEDS: SODIUM BICARBONATE (IV ADD) 100 MEQ in DEXTROSE 5% 900 ML IV (22:26)
[2017-12-03] MEDS: SOD CHLORIDE 0.9% 1,000 ML IV ×2 (04:50→21:04)
[2017-12-03] MEDS ORDERED: NORepinephrine 16 MG in SOD CHLORIDE 0.9% 484 ML IV (05:00)
[2017-12-03 05:07] LABS: ADD MAN DIFF? NO
[2017-12-03 05:08] LABS: ABNORMAL IP MESSAGE 1; HEMATOCRIT 30.8 % (37.0-47.0); HEMOGLOBIN 9.9 g/dl (12.0-16.0); MEAN CORPUSCULAR HEMOGLOBIN 29.3 pg (29.0-33.0); MEAN CORPUSCULAR HGB CONC 32.1 g/dl (32.0-37.0); MEAN CORPUSCULAR VOLUME 91.1 fl (82.0-101.0); MEAN PLATELET VOLUME 10.6 fl (7.4-10.4); NUCLEATED RED BLOOD CELLS% 10.9 /100WBC (0.0-0.0); PLATELET COUNT 115 10^3/UL (140-415); RED BLOOD COUNT 3.38 10^6/ul (4.20-5.40); RED CELL DISTRIBUTION WIDTH 21.3 % (11.5-14.5)
[2017-12-03 05:08] LABS: WHITE BLOOD COUNT 3.5 10^3/ul (4.8-10.8)
[2017-12-03 05:21] LABS: POSITIVE DIFF @See below
[2017-12-03] MEDS: PANTOPRAZOLE 40 MG INJ IV (05:33)
[2017-12-03] MEDS: HYDROmorphONE 0.5 MG/0.5 ML SYG IV (05:33)
[2017-12-03 05:38] LABS: ALANINE AMINOTRANSFERASE 26 IU/L (13-69); ALBUMIN 2.3 g/dl (3.3-4.9); ALBUMIN/GLOBULIN RATIO 1.09; ALKALINE PHOSPHATASE 194 IU/L (42-121); ANION GAP 20 (8-16); ASPARTATE AMINO TRANSFERASE 196 IU/L (15-46); BILIRUBIN,INDIRECT 0.3 mg/dl (0-1.1); BILIRUBIN,TOTAL 0.3 mg/dl (0.2-1.3); BLOOD UREA NITROGEN 50 mg/dl (7-20); CALCIUM 7.2 mg/dl (8.4-10.2); CARBON DIOXIDE 19 mmol/L (21-31); CHLORIDE 97 mmol/L (97-110); GLUCOSE 110 mg/dl (70-220); SODIUM 130 mmol/L (135-144); TOTAL PROTEIN 4.4 g/dl (6.1-8.1)
[2017-12-03 05:45] LABS: POTASSIUM 6.2 mmol/L (3.5-5.1)
[2017-12-03 05:46] LABS: CREATININE 3.08 mg/dl (0.44-1.00)
[2017-12-03 07:14] LABS: ANISOCYTOSIS 1+ (0-0); BAND NEUTROPHILS #M 0.3 10^3/ul (0.0-0.6); BAND NEUTROPHILS % (M) 10 % (0-4); BURR CELLS 1+ (0-0); ERYTHROBLAST% (NRBC) (M) 12 % (0-0); LYMPHOCYTES #M 0.8 10^3/ul (0.8-2.9); LYMPHOCYTES % (M) 24 % (15-51); MICROCYTOSIS 1+ (0-0); MONOCYTE #M 0.4 10^3/ul (0.3-0.9); MONOCYTES % (M) 13 % (0-11); PLATELET ESTIMATE DECREASED; POIKILOCYTOSIS 1+ (0-0); POLYCHROMASIA 1+ (0-0); SEG NEUT #M 1.9 10^3/ul (1.6-7.5); SEGMENTED NEUTROPHILS (M) % 53 % (39-77); SMUDGE%M 6 % (0-0)
[2017-12-03 07:40] LABS: AADO2 Arterial 157.1 mmHg (7.0-24.0); Allen Test ACCEPTAB; Arterial Base Excess -7.5 mmol/L (-3.0-3); Arterial Blood Gas Oxygen Sat 99.1 mmHG (95.0-98.0); Arterial COHb 0.3 % (0.0-3.0); Arterial Fraction of Oxyhgb 98.4 % (93.0-99.0); Arterial HCO3 16.6 mmol/L (22.0-26.0); Arterial MetHb 0.4 % (0.0-1.5); Arterial Total Hemglobin 11.6 g/dl (12.0-18.0); Arterial pCO2 29.4 mmhg (35-45); MODE VENT - AC; Site Right Radial
[2017-12-03] MEDS: MIDAZOLAM (DRIP) 50 mg/50 mL 50 ML IV (08:57)
[2017-12-03] MEDS: morphine (ER) 15 MG TAB PO ×2 (09:00→21:00)
[2017-12-03] MEDS: ENOXAPARIN 80 MG/0.8 ML SYG SC (09:00)
[2017-12-03] MEDS: MEROPENEM 500MG/50 ML (PMX) 50 ML IVPB ×3 (09:49→23:14)
[2017-12-03] MEDS: LINEZOLID 600 MG/D5W (PMX) 300 ML IVPB (10:30)
[2017-12-03] MEDS: CALCIUM GLUCONATE 10% 1 GM in DEXTROSE 5% 100 ML IVPB (10:47)
[2017-12-03 11:26] LABS: CA27.29 139 U/mL (<38)
[2017-12-03] MEDS ORDERED: HEPARIN 1000 UNITS/ML 10 ML INJ (14:51)
[2017-12-03] MEDS: LIDOCAINE 1% (MDV) 10 ML INJ (15:49)
[2017-12-03 16:22] LABS: HEPATITIS B SURFACE ANTIGEN NEGATIVE (NEGATIVE)
[2017-12-03 16:44] LABS: FLUID GLUCOSE 83 mg/dl; FLUID TYPE THORACENTESIS FLUID
[2017-12-03 16:45] LABS: FLUID TOTAL PROTEIN < 2.0 g/dl; FLUID TYPE THORACENTESIS FLUID
[2017-12-03 16:49] LABS: FLD PMN% 20.9 %; FLD RBC 22000 /uL; FLD WBC 11716 /cmm
[2017-12-03] MEDS: SODIUM BICARBONATE (IV ADD) 100 MEQ in DEXTROSE 5% 900 ML IV ×2 (17:28→23:00)
[2017-12-03 17:38] LABS: FLD CLARITY TURBID; FLD COLOR MILKY; FLD MN% 79.1 %
[2017-12-03 17:38] LABS: FLD TYPE THORACENTHESIS
[2017-12-03 17:44] LABS: FLUID LD 19189 U/L
[2017-12-03] MEDS: ALBUMIN HUMAN 25% 100 ML IV (19:35)
[2017-12-03] MEDS: HEPARIN 1000 UNITS/ML 10 ML INJ CATHETER (22:21)
[2017-12-04 01:30] LABS: CREATINE KINASE 62 IU/L (23-200)
[2017-12-04 01:37] LABS: CK INDEX 0.5; CK-MB 0.28 ng/ml (0.0-2.4); TROPONIN-I 0.057 ng/ml (0.000-0.120)
[2017-12-04] MEDS: MIDAZOLAM (DRIP) 50 mg/50 mL 50 ML IV ×3 (04:38→19:44)
[2017-12-04] MEDS: PANTOPRAZOLE 40 MG INJ IV (06:09)
[2017-12-04 06:34] LABS: ABNORMAL IP MESSAGE 1; HEMATOCRIT 28.1 % (37.0-47.0); HEMOGLOBIN 8.7 g/dl (12.0-16.0); MEAN CORPUSCULAR HEMOGLOBIN 28.2 pg (29.0-33.0); MEAN CORPUSCULAR VOLUME 91.2 fl (82.0-101.0); MEAN PLATELET VOLUME 9.9 fl (7.4-10.4); NUCLEATED RED BLOOD CELLS% 7.1 /100WBC (0.0-0.0); PLATELET COUNT 88 10^3/UL (140-415); RED BLOOD COUNT 3.08 10^6/ul (4.20-5.40); RED CELL DISTRIBUTION WIDTH 22.1 % (11.5-14.5)
[2017-12-04 06:34] LABS: WHITE BLOOD COUNT 2.8 10^3/ul (4.8-10.8)
[2017-12-04 06:44] LABS: POSITIVE DIFF @See below
[2017-12-04 06:45] LABS: ADD MAN DIFF? YES
[2017-12-04 07:01] LABS: CK INDEX 0.5; CK-MB 0.25 ng/ml (0.0-2.4); CREATINE KINASE 55 IU/L (23-200); TROPONIN-I 0.052 ng/ml (0.000-0.120)
[2017-12-04 07:05] LABS: ALANINE AMINOTRANSFERASE 18 IU/L (13-69); ALBUMIN 2.5 g/dl (3.3-4.9); ALBUMIN/GLOBULIN RATIO 1.25; ALKALINE PHOSPHATASE 160 IU/L (42-121); ANION GAP 24 (8-16); ASPARTATE AMINO TRANSFERASE 118 IU/L (15-46); BILIRUBIN,INDIRECT 0.4 mg/dl (0-1.1); BILIRUBIN,TOTAL 0.4 mg/dl (0.2-1.3); BLOOD UREA NITROGEN 34 mg/dl (7-20); CARBON DIOXIDE 19 mmol/L (21-31); CHLORIDE 94 mmol/L (97-110); CREATININE 2.86 mg/dl (0.44-1.00); GLUCOSE 113 mg/dl (70-220); POTASSIUM 5.2 mmol/L (3.5-5.1); SODIUM 132 mmol/L (135-144); TOTAL PROTEIN 4.5 g/dl (6.1-8.1)
[2017-12-04] MEDS: MEROPENEM 500MG/50 ML (PMX) 50 ML IVPB (08:26)
[2017-12-04] MEDS: morphine (ER) 15 MG TAB PO ×2 (08:27→21:32)
[2017-12-04] MEDS: SODIUM BICARBONATE (IV ADD) 100 MEQ in DEXTROSE 5% 900 ML IV (08:27)
[2017-12-04] MEDS: ENOXAPARIN 80 MG/0.8 ML SYG SC (08:33)
[2017-12-04 09:15] LABS: ANISOCYTOSIS 1+ (0-0); BAND NEUTROPHILS #M 0.1 10^3/ul (0.0-0.6); BAND NEUTROPHILS % (M) 7 % (0-4); BASOPHILS % (M) 1 % (0-2); BURR CELLS 1+ (0-0); ERYTHROBLAST% (NRBC) (M) 15 % (0-0); GIANT THROMBO% (M) 1 % (0-0); LYMPHOCYTES #M 0.6 10^3/ul (0.8-2.9); LYMPHOCYTES % (M) 23 % (15-51); MICROCYTOSIS 1+ (0-0); MONOCYTE #M 0.2 10^3/ul (0.3-0.9); MONOCYTES % (M) 10 % (0-11); MYELOCYTES % (M) 1 % (0-0); PLATELET ESTIMATE DECREASED; POIKILOCYTOSIS 1+ (0-0); POLYCHROMASIA 3+ (0-0); SEG NEUT #M 1.6 10^3/ul (1.6-7.5); SEGMENTED NEUTROPHILS (M) % 58 % (39-77); SMUDGE%M 15 % (0-0)
[2017-12-04 12:46] LABS: CREATINE KINASE 51 IU/L (23-200)
[2017-12-04 12:57] LABS: CK INDEX 0.4; TROPONIN-I 0.048 ng/ml (0.000-0.120)
[2017-12-04 13:10] LABS: CK-MB < 0.22 ng/ml (0.0-2.4)
[2017-12-04] MEDS: SOD CHLORIDE 0.9% 1,000 ML IV (14:45)
[2017-12-04] MEDS: LEVETIRACETAM 1000 MG (PMX) 100 ML IVPB (16:31)
[2017-12-04] MEDS: LORAZEPAM 2 MG INJ IV (21:31)
[2017-12-04] MEDS: ALBUMIN HUMAN 25% 100 ML IV (22:58)
[2017-12-05] MEDS: SODIUM BICARBONATE (IV ADD) 100 MEQ in DEXTROSE 5% 900 ML IV (01:06)
[2017-12-05] MEDS: MIDAZOLAM (DRIP) 50 mg/50 mL 50 ML IV ×4 (01:42→21:45)
[2017-12-05] MEDS: LEVETIRACETAM 1000 MG (PMX) 100 ML IVPB ×3 (01:47→21:41)
[2017-12-05] MEDS: HEPARIN 1000 UNITS/ML 10 ML INJ CATHETER ×2 (02:30→21:39)
[2017-12-05 05:44] LABS: ABNORMAL IP MESSAGE 1; HEMATOCRIT 25.3 % (37.0-47.0); HEMOGLOBIN 7.8 g/dl (12.0-16.0); MEAN CORPUSCULAR HEMOGLOBIN 28.6 pg (29.0-33.0); MEAN CORPUSCULAR HGB CONC 30.8 g/dl (32.0-37.0); MEAN CORPUSCULAR VOLUME 92.7 fl (82.0-101.0); MEAN PLATELET VOLUME 11.5 fl (7.4-10.4); NUCLEATED RED BLOOD CELLS% 10.7 /100WBC (0.0-0.0); PLATELET COUNT 63 10^3/UL (140-415); RED BLOOD COUNT 2.73 10^6/ul (4.20-5.40); RED CELL DISTRIBUTION WIDTH 22.7 % (11.5-14.5)
[2017-12-05 05:44] LABS: WHITE BLOOD COUNT 2.3 10^3/ul (4.8-10.8)
[2017-12-05] MEDS: PANTOPRAZOLE 40 MG INJ IV (05:46)
[2017-12-05 05:51] LABS: ADD MAN DIFF? YES; POSITIVE DIFF @See below
[2017-12-05 06:04] LABS: ANION GAP 25 (8-16); BLOOD UREA NITROGEN 25 mg/dl (7-20); CALCIUM 7.3 mg/dl (8.4-10.2); CARBON DIOXIDE 21 mmol/L (21-31); CHLORIDE 93 mmol/L (97-110); CREATININE 2.31 mg/dl (0.44-1.00); GLUCOSE 107 mg/dl (70-220); POTASSIUM 4.5 mmol/L (3.5-5.1); SODIUM 134 mmol/L (135-144)
[2017-12-05] MEDS: morphine (ER) 15 MG TAB PO ×2 (08:49→21:00)
[2017-12-05] MEDS: ENOXAPARIN 30 MG/0.3 ML SYG SC (09:18)
[2017-12-05] MEDS: MEROPENEM 500MG/50 ML (PMX) 50 ML IVPB (09:21)
[2017-12-05 09:31] LABS: ANISOCYTOSIS 2+ (0-0); BAND NEUTROPHILS % (M) 1 % (0-4); BURR CELLS 1+ (0-0); EOSINOPHILS % (M) 1 % (0-7); ERYTHROBLAST% (NRBC) (M) 9 % (0-0); LYMPHOCYTES #M 0.5 10^3/ul (0.8-2.9); LYMPHOCYTES % (M) 22 % (15-51); METAMYELOCYTES %M 1 % (0-0); MICROCYTOSIS 1+ (0-0); MONOCYTE #M 0.2 10^3/ul (0.3-0.9); MONOCYTES % (M) 11 % (0-11); MYELOCYTES % (M) 3 % (0-0); PLATELET ESTIMATE DECREASED; POIKILOCYTOSIS 1+ (0-0); POLYCHROMASIA 3+ (0-0); PROMYELOCYTES % (M) 1 % (0-0); SEG NEUT #M 1.4 10^3/ul (1.6-7.5); SEGMENTED NEUTROPHILS (M) % 60 % (39-77); SMUDGE%M 11 % (0-0)
[2017-12-05] MEDS: ALBUMIN HUMAN 25% 100 ML IV (16:12)
[2017-12-05] MEDS: FILGRASTIM 480 MCG INJ SC (17:32)
[2017-12-06] MEDS: MIDAZOLAM (DRIP) 50 mg/50 mL 50 ML IV ×3 (05:15→22:27)
[2017-12-06 05:42] LABS: WHITE BLOOD COUNT 3.5 10^3/ul (4.8-10.8)
[2017-12-06 05:42] LABS: ABNORMAL IP MESSAGE 1; HEMATOCRIT 25.3 % (37.0-47.0); HEMOGLOBIN 7.7 g/dl (12.0-16.0); MEAN CORPUSCULAR HEMOGLOBIN 28.3 pg (29.0-33.0); MEAN CORPUSCULAR HGB CONC 30.4 g/dl (32.0-37.0); MEAN PLATELET VOLUME 10.6 fl (7.4-10.4); PLATELET COUNT 53 10^3/UL (140-415); RED BLOOD COUNT 2.72 10^6/ul (4.20-5.40)
[2017-12-06 06:13] LABS: ADD MAN DIFF? YES; POSITIVE DIFF @See below
[2017-12-06] MEDS: PANTOPRAZOLE 40 MG INJ IV (06:22)
[2017-12-06] MEDS: PIPER-TAZO 2.25 GM (PMX) 50 ML IVPB ×2 (06:22→13:40)
[2017-12-06 06:31] LABS: ANION GAP 21 (8-16); BLOOD UREA NITROGEN 23 mg/dl (7-20); CALCIUM 7.5 mg/dl (8.4-10.2); CARBON DIOXIDE 21 mmol/L (21-31); CHLORIDE 99 mmol/L (97-110); CREATININE 2.49 mg/dl (0.44-1.00); GLUCOSE 117 mg/dl (70-220); POTASSIUM 4.5 mmol/L (3.5-5.1); SODIUM 136 mmol/L (135-144)
[2017-12-06 07:53] LABS: ANISOCYTOSIS 3+ (0-0); BAND NEUTROPHILS #M 0.4 10^3/ul (0.0-0.6); BAND NEUTROPHILS % (M) 12 % (0-4); BURR CELLS 1+ (0-0); ERYTHROBLAST% (NRBC) (M) 15 % (0-0); GIANT THROMBO% (M) 2 % (0-0); LYMPHOCYTES #M 0.3 10^3/ul (0.8-2.9); LYMPHOCYTES % (M) 11 % (15-51); MICROCYTOSIS 1+ (0-0); MONOCYTE #M 0.1 10^3/ul (0.3-0.9); MONOCYTES % (M) 3 % (0-11); OVALOCYTES 1+ (0-0); PLATELET ESTIMATE DECREASED; POIKILOCYTOSIS 2+ (0-0); POLYCHROMASIA 2+ (0-0); SEG NEUT #M 2.6 10^3/ul (1.6-7.5); SEGMENTED NEUTROPHILS (M) % 74 % (39-77); SMUDGE%M 11 % (0-0); TEAR DROP CELLS 1+ (0-0); TOXIC GRANULATION 1+ (0-0)
[2017-12-06] MEDS: morphine (ER) 15 MG TAB PO ×2 (09:00→20:56)
[2017-12-06] MEDS: LEVETIRACETAM 1000 MG (PMX) 100 ML IVPB ×2 (09:06→20:55)
[2017-12-06] MEDS: ENOXAPARIN 30 MG/0.3 ML SYG SC (09:07)
[2017-12-06] MEDS ORDERED: VANCOMYCIN IV PER PHARMACY XX (15:30)
[2017-12-06] MEDS: VANCOMYCIN 1.5 GM in SOD CHLORIDE 0.9% 250 ML IVPB (16:44)
[2017-12-06] MEDS: FILGRASTIM 480 MCG INJ SC (16:45)
[2017-12-06 20:04] LABS: LACTIC ACID 6.1 mmol/L (0.5-2.0)
[2017-12-06] MEDS: MEROPENEM 500MG/50 ML (PMX) 50 ML IVPB (22:27)
[2017-12-07 04:53] LABS: ABNORMAL IP MESSAGE 1; HEMATOCRIT 24.8 % (37.0-47.0); HEMOGLOBIN 7.7 g/dl (12.0-16.0); MEAN CORPUSCULAR HEMOGLOBIN 28.5 pg (29.0-33.0); MEAN CORPUSCULAR VOLUME 91.9 fl (82.0-101.0); MEAN PLATELET VOLUME 9.7 fl (7.4-10.4); NUCLEATED RED BLOOD CELLS% 9.4 /100WBC (0.0-0.0); PLATELET COUNT 35 10^3/UL (140-415); RED CELL DISTRIBUTION WIDTH 23.1 % (11.5-14.5)
[2017-12-07 04:53] LABS: WHITE BLOOD COUNT 4.9 10^3/ul (4.8-10.8)
[2017-12-07 04:57] LABS: ADD MAN DIFF? YES; POSITIVE DIFF @See below
[2017-12-07 05:27] LABS: ANION GAP 17 (8-16); BLOOD UREA NITROGEN 29 mg/dl (7-20); CALCIUM 7.3 mg/dl (8.4-10.2); CARBON DIOXIDE 23 mmol/L (21-31); CHLORIDE 100 mmol/L (97-110); CREATININE 3.08 mg/dl (0.44-1.00); GLUCOSE 106 mg/dl (70-220); MAGNESIUM 1.9 mg/dl (1.7-2.5); PHOSPHORUS 3.7 mg/dl (2.5-4.9); POTASSIUM 4.6 mmol/L (3.5-5.1); SODIUM 135 mmol/L (135-144)
[2017-12-07 05:33] LABS: LACTIC ACID 6.3 mmol/L (0.5-2.0)
[2017-12-07] MEDS: PANTOPRAZOLE 40 MG INJ IV (06:31)
[2017-12-07 07:23] LABS: ANISOCYTOSIS 1+ (0-0); BAND NEUTROPHILS #M 0.2 10^3/ul (0.0-0.6); BAND NEUTROPHILS % (M) 5 % (0-4); BASOPHILS % (M) 1 % (0-2); ERYTHROBLAST% (NRBC) (M) 17 % (0-0); LYMPHOCYTES #M 0.6 10^3/ul (0.8-2.9); LYMPHOCYTES % (M) 13 % (15-51); METAMYELOCYTES #M 0.1 10^3/ul (0.0-0.0); METAMYELOCYTES %M 3 % (0-0); MICROCYTOSIS 1+ (0-0); MONOCYTES % (M) 2 % (0-11); MYELOCYTES #M 0.1 10^3/ul (0.0-0.0); MYELOCYTES % (M) 3 % (0-0); PLATELET ESTIMATE SIG DECREASED; POLYCHROMASIA 3+ (0-0); SEG NEUT #M 3.6 10^3/ul (1.6-7.5); SEGMENTED NEUTROPHILS (M) % 73 % (39-77); SMUDGE%M 8 % (0-0); SPHEROCYTES 1+ (0-0)
[2017-12-07] MEDS: ACETAMINOPHEN 1000MG/100ML IV 100 ML IVPB (07:42)
[2017-12-07] MEDS: morphine (ER) 15 MG TAB PO ×2 (08:35→20:27)
[2017-12-07] MEDS: MIDAZOLAM (DRIP) 50 mg/50 mL 50 ML IV ×2 (08:49→15:40)
[2017-12-07] MEDS: LEVETIRACETAM 1000 MG (PMX) 100 ML IVPB ×2 (08:49→20:24)
[2017-12-07] MEDS: ENOXAPARIN 30 MG/0.3 ML SYG SC (09:00)
[2017-12-07] MEDS: MEROPENEM 500MG/50 ML (PMX) 50 ML IVPB ×2 (10:37→20:42)
[2017-12-07] MEDS: ALTEPLASE (CATHFLO) 2 MG INJ CATHETER (11:14)
[2017-12-07] MEDS: ALBUMIN HUMAN 25% 100 ML IV (12:11)
[2017-12-07] MEDS: HEPARIN 1000 UNITS/ML 10 ML INJ CATHETER (13:51)
[2017-12-07] MEDS ORDERED: HYDROmorphONE 2 MG TAB PO (14:30)
[2017-12-07] MEDS: FILGRASTIM 480 MCG INJ SC (17:30)
[2017-12-08] MEDS: MIDAZOLAM (DRIP) 50 mg/50 mL 50 ML IV ×2 (02:54→15:06)
[2017-12-08] MEDS: PANTOPRAZOLE 40 MG INJ IV (05:19)
[2017-12-08 06:36] LABS: VANCOMYCIN,RANDOM 16.4 ug/ml
[2017-12-08] MEDS: LEVETIRACETAM 1000 MG (PMX) 100 ML IVPB ×2 (08:11→20:19)
[2017-12-08] MEDS: ACETAMINOPHEN 325 MG TAB PO (08:11)
[2017-12-08] MEDS: MEROPENEM 500MG/50 ML (PMX) 50 ML IVPB ×2 (08:35→21:22)
[2017-12-08] MEDS: morphine (ER) 15 MG TAB PO ×2 (08:59→21:00)
[2017-12-08] MEDS: ACETAMINOPHEN 1000MG/100ML IV 100 ML IVPB (10:07)
[2017-12-08] MEDS: VANCOMYCIN 500MG/NS (PMX) 100 ML IVPB (12:37)
[2017-12-08] MEDS: METOCLOPRAMIDE 10 MG INJ IV ×2 (12:42→17:18)
[2017-12-08] MEDS: CASPOFUNGIN 70 MG in SOD CHLORIDE 0.9% 250 ML IVPB (12:55)
[2017-12-08] MEDS: FILGRASTIM 480 MCG INJ SC (17:19)
[2017-12-09] MEDS: METOCLOPRAMIDE 10 MG INJ IV ×4 (00:22→18:30)
[2017-12-09] MEDS: MIDAZOLAM (DRIP) 50 mg/50 mL 50 ML IV (02:47)
[2017-12-09 05:19] LABS: ABNORMAL IP MESSAGE 1; HEMATOCRIT 26.1 % (37.0-47.0); HEMOGLOBIN 8.1 g/dl (12.0-16.0); MEAN CORPUSCULAR HEMOGLOBIN 28.4 pg (29.0-33.0); MEAN CORPUSCULAR VOLUME 91.6 fl (82.0-101.0); NUCLEATED RED BLOOD CELLS% 8.7 /100WBC (0.0-0.0); PLATELET COUNT 41 10^3/UL (140-415); RED BLOOD COUNT 2.85 10^6/ul (4.20-5.40); RED CELL DISTRIBUTION WIDTH 23.6 % (11.5-14.5)
[2017-12-09 05:46] LABS: ALANINE AMINOTRANSFERASE 18 IU/L (13-69); ALBUMIN 2.5 g/dl (3.3-4.9); ALBUMIN/GLOBULIN RATIO 1.38; ALKALINE PHOSPHATASE 99 IU/L (42-121); ANION GAP 22 (8-16); ASPARTATE AMINO TRANSFERASE 76 IU/L (15-46); BILIRUBIN,INDIRECT 0.2 mg/dl (0-1.1); BILIRUBIN,TOTAL 0.2 mg/dl (0.2-1.3); BLOOD UREA NITROGEN 32 mg/dl (7-20); CALCIUM 6.8 mg/dl (8.4-10.2); CARBON DIOXIDE 20 mmol/L (21-31); CHLORIDE 95 mmol/L (97-110); GLUCOSE 112 mg/dl (70-220); POTASSIUM 4.6 mmol/L (3.5-5.1); SODIUM 132 mmol/L (135-144); TOTAL PROTEIN 4.3 g/dl (6.1-8.1)
[2017-12-09 05:50] LABS: MEAN PLATELET VOLUME 13.2 fl (7.4-10.4); POSITIVE DIFF @See below
[2017-12-09] MEDS: PANTOPRAZOLE 40 MG INJ IV (05:50)
[2017-12-09 05:51] LABS: ADD MAN DIFF? YES
[2017-12-09 06:24] LABS: CREATININE 3.28 mg/dl (0.44-1.00)
[2017-12-09 07:48] LABS: ANISOCYTOSIS 1+ (0-0); BAND NEUTROPHILS #M 0.3 10^3/ul (0.0-0.6); BAND NEUTROPHILS % (M) 6 % (0-4); EOSINOPHILS % (M) 1 % (0-7); ERYTHROBLAST% (NRBC) (M) 19 % (0-0); GIANT THROMBO% (M) 1 % (0-0); LYMPHOCYTES % (M) 20 % (15-51); MICROCYTOSIS 1+ (0-0); MONOCYTE #M 0.4 10^3/ul (0.3-0.9); MONOCYTES % (M) 8 % (0-11); PLATELET ESTIMATE DECREASED; POLYCHROMASIA 2+ (0-0); SEG NEUT #M 3.3 10^3/ul (1.6-7.5); SEGMENTED NEUTROPHILS (M) % 65 % (39-77); SMUDGE%M 16 % (0-0)
[2017-12-09] MEDS: morphine (ER) 15 MG TAB PO ×2 (09:00→20:04)
[2017-12-09] MEDS ORDERED: LORAZEPAM (MDV) 100 MG in DEXTROSE 5% 50 ML IV (10:30)
[2017-12-09] MEDS ORDERED: morphine (DRIP) 100 MG/100 ML 100 ML IV (10:30)
[2017-12-09] MEDS: MEROPENEM 500MG/50 ML (PMX) 50 ML IVPB ×2 (12:11→21:14)
[2017-12-09] MEDS: LEVETIRACETAM 1000 MG (PMX) 100 ML IVPB ×2 (12:12→21:15)
[2017-12-09] MEDS: PHENYLephrine 80 MG in DEXTROSE 5% 492 ML IV (12:25)
[2017-12-09] MEDS: CASPOFUNGIN 50 MG in SOD CHLORIDE 0.9% 250 ML IVPB (12:42)
[2017-12-09] MEDS: ACETAMINOPHEN 1000MG/100ML IV 100 ML IVPB (12:42)
[2017-12-09] MEDS: FILGRASTIM 480 MCG INJ SC (18:31)
[2017-12-09] MEDS: ERYTHROMYCIN BASE (EC) 250 MG TAB PO (21:24)
[2017-12-10] MEDS: METOCLOPRAMIDE 10 MG INJ IV ×2 (00:37→06:01)
[2017-12-10] MEDS: PHENYLephrine 80 MG in DEXTROSE 5% 492 ML IV (04:06)
[2017-12-10 05:42] LABS: ADD MAN DIFF? NO
[2017-12-10 05:44] LABS: ABNORMAL IP MESSAGE 1; BASOPHILS % 0.5 % (0.0-2.0); EOSINOPHILS % 0.1 % (0.0-7.0); HEMATOCRIT 29.2 % (37.0-47.0); HEMOGLOBIN 8.6 g/dl (12.0-16.0); LYMPHOCYTES # 2.2 10^3/ul (0.8-2.9); LYMPHOCYTES % 29.8 % (15.0-51.0); MEAN CORPUSCULAR HEMOGLOBIN 28.9 pg (29.0-33.0); MEAN CORPUSCULAR HGB CONC 29.5 g/dl (32.0-37.0); MEAN PLATELET VOLUME 13.1 fl (7.4-10.4); MONOCYTE # 0.5 10^3/ul (0.3-0.9); MONOCYTES % 6.4 % (0.0-11.0); NEUTROPHIL # 3.9 10^3/ul (1.6-7.5); NEUTROPHILS % 52.9 % (39.0-77.0); NUCLEATED RED BLOOD CELLS # 1.6 10^3/ul (0.0-0.0); NUCLEATED RED BLOOD CELLS% 21.8 /100WBC (0.0-0.0); PLATELET COUNT 50 10^3/UL (140-415); RED BLOOD COUNT 2.98 10^6/ul (4.20-5.40); RED CELL DISTRIBUTION WIDTH 23.2 % (11.5-14.5)
[2017-12-10 05:44] LABS: WHITE BLOOD COUNT 7.4 10^3/ul (4.8-10.8)
[2017-12-10 05:49] LABS: POSITIVE DIFF @See below
[2017-12-10] MEDS: PANTOPRAZOLE 40 MG INJ IV (06:00)
[2017-12-10] MEDS: ERYTHROMYCIN BASE (EC) 250 MG TAB PO (06:01)
[2017-12-10 06:06] LABS: ANION GAP 29 (8-16); BLOOD UREA NITROGEN 36 mg/dl (7-20); CALCIUM 6.5 mg/dl (8.4-10.2); CHLORIDE 98 mmol/L (97-110); GLUCOSE 65 mg/dl (70-220); POTASSIUM 5.6 mmol/L (3.5-5.1); SODIUM 130 mmol/L (135-144)
[2017-12-10 06:16] LABS: CREATININE 3.93 mg/dl (0.44-1.00)
[2017-12-10 06:19] LABS: CARBON DIOXIDE 9 mmol/L (21-31)
[2017-12-10] MEDS: VASOPRESSIN 60 UNIT in DEXTROSE 5% 57 ML IV (06:41)
[2017-12-10] MEDS ORDERED: EPINEPHrine 0.1 MG/ML SYG (07:00)
[2017-12-10] MEDS ORDERED: NA BICARBONATE 8.4% 50 ML SYG (07:00)
[2017-12-10] MEDS: morphine (ER) 15 MG TAB PO (09:00)
[2017-12-10] MEDS: MEROPENEM 500MG/50 ML (PMX) 50 ML IVPB (10:02)
[2017-12-10] MEDS: LEVETIRACETAM 1000 MG (PMX) 100 ML IVPB (10:02)
[2017-12-10] MEDS: EPINEPHrine 4 MG in DEXTROSE 5% 246 ML IV (11:55)
[2017-12-10] MEDS ORDERED: LORAZEPAM (MDV) 100 MG in DEXTROSE 5% 50 ML IV (15:30)
[2017-12-10] MEDS: morphine (DRIP) 100 MG/100 ML 100 ML IV (15:34)
== END 2017-12-10 20:16 | disposition expired | DRG 870 ==
LOC: ICU 12-01 12:55 → E/R 14:09 → MS4 15:57
PROC: 0W993ZZ Drainage of Right Pleural Cavity, Percutaneous Approach (ICD-10-PCS; 2017-11-26)
PROC: 5A1955Z Respiratory Ventilation, Greater than 96 Consecutive Hours (ICD-10-PCS; principal; 2017-12-02)
PROC: 0BH17EZ Insertion of Endotracheal Airway into Trachea, Via Natural or Artificial Opening (ICD-10-PCS; 2017-12-02)
PROC: 06HM33Z Insertion of Infusion Device into Right Femoral Vein, Percutaneous Approach (ICD-10-PCS; 2017-12-03)
PROC: 5A1D70Z Performance of Urinary Filtration, Intermittent, Less than 6 Hours Per Day (ICD-10-PCS; 2017-12-03)
PROC: 0W993ZX Drainage of Right Pleural Cavity, Percutaneous Approach, Diagnostic (ICD-10-PCS; 2017-12-03)
DX: A41.9 Sepsis, unspecified organism (principal); R65.21 Severe sepsis with septic shock; J96.01 Acute respiratory failure with hypoxia; N17.0 Acute kidney failure with tubular necrosis; D61.810 Antineoplastic chemotherapy induced pancytopenia; I82.411 Acute embolism and thrombosis of right femoral vein; C83.30 Diffuse large B-cell lymphoma, unspecified site; C79.51 Secondary malignant neoplasm of bone; E87.2 Acidosis; E87.1 Hypo-osmolality and hyponatremia; J90 Pleural effusion, not elsewhere classified; J98.11 Atelectasis; N39.0 Urinary tract infection, site not specified; N13.30 Unspecified hydronephrosis; R18.8 Other ascites; C50.919 Malignant neoplasm of unspecified site of unspecified female breast; B96.20 Unspecified Escherichia coli [E. coli] as the cause of diseases classified elsewhere; E87.5 Hyperkalemia; I10 Essential (primary) hypertension; R16.0 Hepatomegaly, not elsewhere classified; R10.84 Generalized abdominal pain; Z16.12 Extended spectrum beta lactamase (ESBL) resistance; Z96.0 Presence of urogenital implants; Z51.5 Encounter for palliative care; Z66 Do not resuscitate
CPT/HCPCS: 36600; 70450; 71045; 74018; 74176; 76705; 76942; 80048; 80053; 80202; 81001; 82378; 82550; 82553; 82803; 82945; 82962; 83605; 83615; 83735; 83880; 84100; 84157; 84443; 84484; 84560; 85025; 85610; 85730; 86300; 87040; 87070; 87075; 87081; 87086; 87102; 87116; 87340; 88104; 88305; 88307; 88341; 88342; 89051; 90935; 93005; 93970; 94002; 94003; 94640; 94664; 94770; 95819; 96374; 96375; 99291-25